=== PATIENT | female | born 1950 | race Caucasian/White ===

== ENCOUNTER 2017-10-19 19:35 | Observation (INO) | payer MEDICARE ==
[~2017-10-19] VITALS: Ht 165.1 cm; Wt 65.8 kg
[2017-10-19] MEDS ORDERED: ASPIRIN 81 MG CHEW (CHILDREN'S ASA) ONE (19:41)
[2017-10-19 19:54] LABS: BASOPHILS % (AUTO) 0 % (0-10); EOSINOPHILS # (AUTO) 0.1 10^3/uL (0.0-0.3); EOSINOPHILS % (AUTO) 1 % (0-10); HEMATOCRIT 43 % (35-52); HEMOGLOBIN 14.6 G/DL (11.5-16.0); LYMPHOCYTES # (AUTO) 1.7 X 10^3 (1.0-4.0); LYMPHOCYTES % (AUTO) 29 % (12-44); MEAN CORPUSCULAR HEMOGLOBIN 32 PG (25-34); MEAN CORPUSCULAR HGB CONC 34 G/DL (32-36); MEAN CORPUSCULAR VOLUME 93 FL (80-99); MEAN PLATELET VOLUME 8.8 FL (7.4-10.4); MONOCYTES # (AUTO) 0.6 X 10^3 (0.0-1.0); MONOCYTES % (AUTO) 11 % (0-12); NEUTROPHILS # (AUTO) 3.3 X 10^3 (1.8-7.8); NEUTROPHILS % (AUTO) 58 % (42-75); PLATELET COUNT 253 10^3/uL (130-400); RED BLOOD COUNT 4.59 10^6/uL (4.35-5.85); RED CELL DISTRIBUTION WIDTH 13.3 % (10.0-14.5); WHITE BLOOD COUNT 5.7 10^3/uL (4.3-11.0)
--- OUTSIDE RECORDS SUMMARY | 2017-10-19 19:54 | XMS REPORT ---
Author Author Josh Michael Organization [employer] Address Unknown Phone Unavailable Care Team Providers Care Bee Keeper Name Role Phone Josh Michael CP Unavailable Allergies, Adverse Reactions, Alerts Substance Reaction Event Type Evista Info Not Available Drug Allergy Captopril Info Not Available Drug Allergy steroid injections Info Not Available Drug Allergy iodine contrast dye Info Not Available Non Drug Allergy Z-Lui Info Not Available Non Drug Allergy Problems Problem Type Condition ICD-9 Code Onset Dates Condition Status Problem Family history of other cardiovascular diseases V17.49 Active Problem Hypertension, Unspecified 401.9 Active Problem Fatigue 780.79 Active Problem SVT, Nonsustained 427.0 Active Assessment Family history of ischemic heart disease V17.3 Active Problem Chest pain 786.50 Active Problem Palpitations 785.1 Active Problem 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 Problem Coronary Artery Disease 414.01 Active Problem Family history of ischemic heart disease V17.3 Active Problem Dyslipidemia 272.4 Active Assessment Family history of other cardiovascular diseases V17.49 Active Assessment Dyslipidemia 272.4 Active Assessment Chest pain 786.50 Active Assessment Palpitations 785.1 Active Assessment SVT, Nonsustained 427.0 Active Assessment Fatigue 780.79 Active Assessment Hypertension, Unspecified 401.9 Active Assessment Coronary Artery Disease 414.01 Active Assessment 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 Problem Allergy, unspecified not elsewhere classified 995.3 Active Medications Medication Code System Code Instructions Start Date End Date Status Dosage Metoprolol Tartrate [facility] [address]-36 25MG Orally Twice a day 1 tablet Vitamin D [facility] [address]-83 1000 UNIT Orally Once a day 1 tablet Cardizem LA [facility] [address]-27 240 MG Orally qd 1 tab ASA 81 mg [facility] [address]-62 Oral qd 1 tab Potassium [facility] [address]-28 75 MG Orally Once a day 1 tablet Procedures Procedure Coding System Code Date Office Visit, Est Pt., Level 4 CPT-4 94051 October 10, 2014 Vital Signs Date/Time: October 10, 2014 BMI 23.79 Index Weight 143 lbs Height 65 inches in Cardiac Monitoring Heart Rate 60 /min Oximetry 98 % Blood Pressure Diastolic 70 mm Hg Blood Pressure Systolic 110 mm Hg Results No Known Results Summary Purpose [employer] Submission
--- OUTSIDE RECORDS SUMMARY | 2017-10-19 19:54 | XMS REPORT ---
Author Author Josh Michael Organization [employer] Address Unknown Phone Unavailable Care Team Providers Care Dealer Analyst Name Role Phone Josh Michael CP Unavailable Allergies, Adverse Reactions, Alerts Substance Reaction Event Type Evista Info Not Available Drug Allergy Captopril Info Not Available Drug Allergy steroid injections Info Not Available Drug Allergy iodine contrast dye Info Not Available Non Drug Allergy Z-Lui Info Not Available Non Drug Allergy Problems Problem Type Condition Code Onset Dates Condition Status Problem Family [...] Instructions Start Date End Date Status Dosage ASA 81 mg [facility] [address]-03 Oral qd 1 tab Metoprolol Tartrate [facility] [address]-25 50 MG Orally bid 1 tab Cardizem LA [facility] [address]-67 120 MG Orally qd 1 tab Vitamin D [facility] [address]-01 1000 UNIT Orally Once a day 1 tablet Potassium [facility] [address]-70 75 MG Orally Once a day 1 tablet Procedures Procedure Coding System Code Date Office Visit, Est Pt., Level 3 CPT-4 18240 Jan 01, 2015 ELECTROCARDIOGRAM, COMPLETE CPT-4 41927 Jan 01, 2015 Vital Signs Date/Time: Jan 01, 2015 BMI 24.26 Index Weight 145.8 lbs Height 65 inches in Cardiac Monitoring Heart Rate 57 /min Oximetry 98%RA % Blood Pressure Diastolic 98 mm Hg Blood Pressure Systolic 148 mm Hg Results No Known Results Summary Purpose [employer] Submission
--- OUTSIDE RECORDS SUMMARY | 2017-10-19 19:54 | XMS REPORT | Referral Summary ---
Author Author [facility] Organization [facility] Address Unknown Phone Unavailable Care Team Providers Care Hooking Machine Operator Name Role Phone WillRia smith Jeremi PCP Encounter VC Date(s): 10/02/17 - 10/02/17 [facility] [address] [place] [address] [phone] Discharge Disposition: 01-Home or Self Care Attending Physician: Josemanuel Meng MD Admitting Physician: Josemanuel Meng MD Vital Signs No data available for this section Problem List Condition Effective Dates Status Health Status Informant Coronary artery Active disease(Confirmed) Benign essential Active hypertension (disorder)(Confirmed ) Gastroesophageal Active reflux disease (disorder)(Confirmed ) History of TIA Active patient (transient ischemic attack)(Confirmed) Other and Active unspecified hyperlipidemia(Confi rmed) kidney Active stones(Confirmed) Myocardial 2003 Active infarction(Confirmed ) microscopic 2009 Active hematuria(Confirmed) 1 Osteoporosis Active (disorder)(Confirmed ) 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 Allergies, Adverse Reactions, Alerts Substance Reaction Severity Status captopril FLUSHING Active azithromycin Active iodine Angiodema Active Forteo Active Medications diltiazem 240 mg/24 hours oral tablet, extended release 240 mg 1 tabs, Oral, Daily, 30-DAY SUPPLY, NO FURTHER REFILLS - PT NEEDS TO MAKE APPT., # 30 tabs, 0 Refill(s), Pharmacy: [facility] #[id number], 1 tabs Oral Daily,Instr:30-DAY SUPPLY, NO FURTHER REFILLS - PT NEEDS TO MAKE APPT. Start Date: 09/24/14 Status: Ordered metoprolol-hydrochlorothiazide 50 mg-25 mg oral tablet 1 tabs, Oral, Daily, 30-DAY SUPPLY, NO FURTHER REFILLS - PT NEEDS TO MAKE APPT. , # 30 tabs, 0 Refill(s), Pharmacy: [facility] #[id number] Start Date: 09/24/14 Status: Ordered valACYclovir 1 g oral tablet See Instructions, TAKE TWO TABLETS BY MOUTH EVERY 12 HOURS FOR 1 DAY, # 20 tabs , 1 Refill(s), eRx: [facility] #[id number], TAKE TWO TABLETS BY MOUTH EVERY 12 HOURS FOR 1 DAY Start Date: 01/17/14 Status: Ordered Results Urinalysis Most recent to 1 oldest [Reference Range]: UA Color Yellow (10/02/17 3:10 PM) UA Appear Sl Cloudy (10/02/17 3:10 PM) UA pH [5.0-8.0] 6.5 (10/02/17 3:10 PM) UA Leuk Est Pos 2+ [Negative] *ABN* (10/02/17 3:10 PM) UA Nitrite Positive [Negative] *ABN* (10/02/17 3:10 PM) UA Protein Pos 2+ [Negative] *ABN* (10/02/17 3:10 PM) UA Glucose Negative [Negative] (10/02/17 3:10 PM) UA Ketones Trace [Negative] *ABN* (10/02/17 3:10 PM) UA Urobilinogen Negative [<1.0] (10/02/17 3:10 PM) UA Bili [Negative] Negative (10/02/17 3:10 PM) UA Blood [Negative] Pos 3+ *ABN* (10/02/17 3:10 PM) UA Spec Grav 1.023 [1.003-1.030] (10/02/17 3:10 PM) Type Cl Catch (10/02/17 3:10 PM) UA WBC [0-4] 20-50 *ABN* (10/02/17 3:10 PM) UA RBC [0-2] 20-50 *ABN* (10/02/17 3:10 PM) Epithelial Cells 0-2 (10/02/17 3:10 PM) UA Bacteria Moderate *ABN* (10/02/17 3:10 PM) Immunizations Given and Recorded Vaccine Date Status Refusal Reason influenza virus vaccine, live 04/05/13 Given influenza virus vaccine, live 03/13/12 Given influenza virus vaccine, live 01/12/11 Given influenza virus vaccine, live 12/15/09 Given Procedures Procedure Date Related Diagnosis Body Site Status cystoscopy 2010 Completed Hernia repair 2010 Completed Colonoscopy 11/28/08 Completed Hysterectomy 2002 Completed Tubal ligation1979 Completed Bilat salpingo oophorectomy Completed laser eye surgery Completed sigmoidoscopy Completed 1Bilateral Social History Social History Type Response Smoking Status Former smoker1 entered on: 07/03/14 1quit 22 years ago Assessment and Plan No data available for this section
--- OUTSIDE RECORDS SUMMARY | 2017-10-19 19:55 | XMS REPORT ---
Author Author Josh Michael Organization [employer] Address Unknown Phone Unavailable Care Team Providers Care Aircraft Seat Upholsterer Name Role Phone Josh Michael CP Unavailable Allergies No Known Allergies Problems Problem Type Condition Code Onset Dates Condition Status Problem Family history of other cardiovascular diseases V17.49 Active Problem Hypertension, Unspecified 401.9 Active Problem Fatigue 780.79 Active Problem Allergy, unspecified not elsewhere classified 995.3 Active Problem SVT, Nonsustained 427.0 Active Problem Chest pain 786.50 Active Problem Palpitations 785.1 Active Problem 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
--- OUTSIDE RECORDS SUMMARY | 2017-10-19 19:55 | XMS REPORT ---
Author Author Josh Michael Organization [employer] Address Unknown Phone Unavailable Care Team Providers Care Manager Of Environmental Services Name Role Phone Josh Michael CP Unavailable [...] V17.3 Active Problem Dyslipidemia 272.4 Active Medications No Known Medications Results No Known Results Summary Purpose [employer] Submission
--- OUTSIDE RECORDS SUMMARY | 2017-10-19 19:56 | XMS REPORT ---
Author Author Josh Michael Organization [employer] Address Unknown Phone Unavailable Care Team Providers Care Film Touch Up Inspector Name Role Phone Josh Michael CP Unavailable Allergies No Known Allergies Problems Problem Type Condition Code Onset Dates Condition Status Problem Family history of other cardiovascular diseases V17.49 Active Problem Hypertension, Unspecified 401.9 Active Problem Fatigue 780.79 Active Assessment Coronary Artery Disease 414.01 Active Problem Allergy, unspecified not elsewhere classified 995.3 Active Problem SVT, Nonsustained 427.0 Active Problem Chest pain 786.50 Active Problem Palpitations 785.1 Active Problem 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
--- OUTSIDE RECORDS SUMMARY | 2017-10-19 19:57 | XMS REPORT | Continuity of Care Document ---
Author Author [facility] Organization [facility] Address Unknown Phone Unavailable Allergies Active Description Code Type Severity Reaction Onset Reported/Identified Relationship to Patient Clinical Status Yes CONTRAVE [id number] Drug Allergy N/A hives Yes FORTEO [id number] Drug Allergy N/A Rash Yes LISINOPRIL 24676 Drug Allergy N /A Facial Redness /Flushed Yes TETANUS TOXOID ADSORBED [id number] Drug Allergy N/A Swollen T flaming red hive Yes ZITHROMAX [id number] Drug Allergy N/A rash Yes CONTRAST DYE CONTRAST DYE Drug Allergy Severe HIVES 10/07/2009 Yes tetanus toxoid, adsorbed tetanus toxoid, adsorbed Drug Allergy Severe SEVERE ELBOW TO SHOULDER EXTREME SWELLING AND PAIN 10/07/2009 Yes Captopril Drug Allergy FLUSHING 10/28/2010 Yes Forteo Drug Allergy HIVES 10/28/2010 Yes IV Dye, Iodine Containing Cont Drug Allergy Angiodema 10/28/2010 Yes Zithromax Z-Lui Drug Allergy RASH 10/28/2010 Yes No Known Food Allergies Food Allergy 05/18/2012 Yes captopril NKMA N/A FLUSHING 07/31/2013 Yes iodine NKMA N/A Angiodema 07/31/2013 Yes captopril NKMA N/A FLUSHING 07/31/2013 Yes iodine NKMA N/A Angiodema 07/31/2013 Yes azithromycin NKMA N/A N/A 09/06/2013 Yes Forteo NKMA N/A N/ A 09/06/2013 Yes azithromycin NKMA N/A N/A 09/06/2013 Yes Forteo NKMA N/A N/ A 09/06/2013 Yes azithromycin azithromycin Drug Allergy Severe RASH 01/14/2015 Yes captopril captopril Drug Allergy Severe RASH, BRIGHT RED 01/14/2015 Yes iodine iodine Drug Allergy Unknown CHEST HEAVINESS, RASH 01/14/2015 Yes STEROID INJECTION STEROID INJECTION Drug Allergy Unknown EXTREME DIAPHORESIS 01/14/2015 Yes teriparatide teriparatide Drug Allergy Unknown RASH 01/14/2015 Medications Medication Packaging Start Date Stop Date Route Dosage Sig ofloxacin otic(ofloxacin 0.3% otic solution) 4 drops 09/06/2013 07/05/2014 Ear-Left 4 drops, Ear-Left, QID valACYclovir(Valtrex 500 mg oral tablet) tabs 09/06/2013 07/05/2014 Oral mg tabs, Oral, q12hr metoprolol(metoprolol tartrate 50 mg oral tablet) 1 tabs 09/06/2013 09/24/2014 Oral 50 mg 1 tabs, Oral, Daily, 50/25 mg diltiazem(Cardizem LA 240 mg/24 hours oral tablet, extended release ) 1 tabs 09/21/2013 09/02/2014 Oral 240 mg 1 tabs, Oral, Daily, 90 tabs valACYclovir(valACYclovir 1 g oral tablet) 01/17/2014 See Instructions, TAKE TWO TABLETS BY MOUTH EVERY 12 HOURS FOR 1 DAY, 20 tabs ciprofloxacin ophthalmic(ciprofloxacin 0.3% ophthalmic solution) 2 drops 07/03/2014 07/10/2014 Eye-Left 2 drops, Eye-Left, q4hr, 5 mL diltiazem(diltiazem 240 mg/24 hours oral tablet, extended release) 09/02/2014 09/24/2014 See Instructions, 1 TABS ORAL DAILY, 90 tabs metoprolol-hydrochlorothiazide(metoprolol-hydrochlorothiazide 50 mg -25 mg oral tablet) tabs 09/24/2014 09/24/2014 Oral tabs, Oral, BID, 0 Refill(s) metoprolol-hydrochlorothiazide(metoprolol-hydrochlorothiazide 50 mg -25 mg oral tablet) 1 tabs 09/24/2014 Oral 1 tabs, Oral, Daily, 30- DAY SUPPLY, NO FURTHER REFILLS - PT NEEDS TO MAKE APPT., 30 tabs, 0 Refill(s) diltiazem(diltiazem 240 mg/24 hours oral tablet, extended release) 1 tabs 09/24/2014 Oral 240 mg 240 mg=1 tabs, Oral, Daily, 30-DAY SUPPLY, NO FURTHER REFILLS - PT NEEDS TO MAKE APPT., 30 tabs, 0 Refill(s) VITAMIN D 10/23/2014 10/23/2014 ORAL 800 [id number] daily TRIAMTERENE-HCTZ 10/23/2014 10/23/2014 ORAL 37.5-25MG37.5-25MG POTASSIUM 10/23/2014 10/23/2014 ORAL [id number] METOPROLOL TARTRATE 10/23/2014 10/23/2014 ORAL [id number] twice daily CARTIA XT 10/23/2014 10/23/2014 ORAL [id number] daily ASPIRIN EC 10/23/2014 10/23/2014 ORAL [id number] daily VITAMIN D 03/23/2016 03/23/2016 ORAL [id number] daily VALACYCLOVIR HCL 03/23/2016 03/23/2016 ORAL 1GM1GM every 12 hrs AMLODIPINE BESYLATE 03/23/2016 03/23/2016 ORAL 5MG5MG daily METRONIDAZOLE 05/25/2016 05/25/2016 ORAL [id number] three times daily Problems Date Dx Coded Attending Type Code Diagnosis Diagnosed By 05/18/2012 Harlan Samuel MD Final 276.8 HYPOPOTASSEMIA 05/18/2012 Harlan Samuel MD Final 401.9 HYPERTENSION NOS 05/18/2012 Harlan Samuel MD Final 785.1 PALPITATIONS 10/03/2017 D18.01 Hemangioma of skin and subcutaneous tissue JUAN SAMANIEGO 10/03/2017 D22.5 Melanocytic nevi of trunk JUAN SAMANIEGO 10/03/2017 D22.71 Melanocytic nevi of right lower limb, including hip JUAN SAMANIEGO 10/03/2017 D22.72 Melanocytic nevi of left lower limb, including hip JUAN SAMANIEGO 10/03/2017 L57.0 Actinic keratosis JUAN SAMANIEGO 10/03/2017 L82.1 Other seborrheic keratosis JUAN SAMANIEGO 10/03/2017 Meng Jace Reason Z01.89 Encounter for other specified special examinations Procedures Code [place] [address] CHEST 2 VIEW ERENDIRA KENNEDY 07/04/2017 14150 Level III new patient office visit JUAN SAMANIEGO 10/03/2017 <section xmlns="urn:hl7-org:v3" xmlns:xsi="http://www.Yeelion3.org/2001/ XMLSchema-instance"> <templateId root="[id number]" /> < templateId root="[id number]" /> <code codeSystemName= "LOMAG" codeSystem="[id number]" code="04849-3" displayName="Results" /> <title>Results</title> <text> <table> <thead> <tr> <th>Test</th> <th>Result</th> <th>Range</th> </tr> </thead> <tbody> <tr> <th colspan="10">LIPID PANEL - 06:15</th> </tr> <tr> <td>CHOLESTEROL/HDL RATIO</td > <td>3.3 </td> <td> < 5.0</td> </tr> <tr> <td>LDL CHOLESTEROL</td> <td>140 mg/dL</td> <td>< 100</td> </tr> <tr> <td>VLDL CHOLESTEROL</td> < td>9 mg/dL</td> <td>< 30</td> </tr> <tr> <td> TRIGLYCERIDES</td> <td>45 mg/dL</td> <td>< 150</td> </tr> <tr> <td>CHOLESTEROL</td> <td>213 mg/dL</td> <td>< 200</td> </tr> <tr> <td>HDL CHOLESTEROL</ td> <td>64 mg/dL</td> <td>> 39</td> </tr> <tr > <td>Microbiology</td> <td> </td> <td /> </tr > <tr> <th colspan="10">CBC - 01/14/15 06:45</th> </tr> <tr> <td>MEAN CELL HGB</td> <td>31.2 pg</td> < td>27.0-33.0</td> </tr> <tr> <td>MEAN CELL HGB CONCENTRATION</td> <td>34.1 g/dL</td> <td>32.0-37.0</td> </tr> <tr> <td>MEAN CELL VOLUME</td> <td>91.5 fl</td > <td>80.0-100.0</td> </tr> <tr> <td>RED BLOOD CELL</td> <td>5.04 m/cumm</td> <td>4.00-6.00</td> </tr > <tr> <td>RED CELL DISTRIBUTION WIDTH</td> <td>12.4 &# 37;</td> <td>11.0-15.6</td> </tr> <tr> <td> WHITE BLOOD CELL</td> <td>9.3 k/cumm</td> <td>5.0-10.0</td> </tr> <tr> <td>HEMOGLOBIN</td> <td>15.7 gm/dL</td > <td>12.0-16.0</td> </tr> <tr> <td>HEMATOCRIT</ td> <td>46.1 %</td> <td>37.0-47.0</td> </tr> <tr> <td>PLATELET COUNT</td> <td>318 k/cumm</td> < td>150-400</td> </tr> <tr> <td>Microbiology</td> <td> </td> <td /> </tr> <tr> <th colspan="10"> METABOLIC PANEL, COMPREHN - 01/14/15 06:45</th> </tr> <tr> <td>POTASSIUM</td> <td>3.7 mmol/L</td> <td>3.5-5.3</td> </tr> <tr> <td>EST GFR (MDRD)</td> <td>> 60 mL/ min</td> <td>> 59</td> </tr> <tr> <td>ANION GAP</td> <td>10 mmol/L</td> <td>5-15</td> </tr> <tr> <td>EST CrCl (CG)</td> <td>56 mL/min</td> <td>& gt; 59</td> </tr> <tr> <td>GLUCOSE</td> <td>142 mg/dL</td> <td>70-99</td> </tr> <tr> <td>CALCIUM </td> <td>9.5 mg/dL</td> <td>8.5-10.1</td> </tr> <tr> <td>BLOOD UREA NITROGEN</td> <td>18 mg/dL</td> <td>7-20</td> </tr> <tr> <td>CREATININE</td> < td>0.9 mg/dL</td> <td>0.6-1.0</td> </tr> <tr> < td>SODIUM</td> <td>139 mmol/L</td> <td>135-148</td> </ tr> <tr> <td>CHLORIDE</td> <td>101 mmol/L</td> <td>98-110</td> </tr> <tr> <td>AST/SGOT</td> < td>11 Units/L</td> <td>10-37</td> </tr> <tr> <td >ALT/SGPT</td> <td>19 Units/L</td> <td>< 66</td> </ tr> <tr> <td>CARBON DIOXIDE</td> <td>28 mmol/L</td> <td>21-32</td> </tr> <tr> <td>TOTAL PROTEIN</td> <td>8.0 gm/dL</td> <td>6.4-8.2</td> </tr> <tr> <td>ALBUMIN</td> <td>4.2 gm/dL</td> <td>3.4-5.0</td> </tr> <tr> <td>BILI TOTAL</td> <td>0.3 mg/dL</ td> <td>0.0-1.0</td> </tr> <tr> <td>ALKALINE PHOSPHATASE TOTAL</td> <td>121 IU/L</td> <td>45-117</td> </tr> <tr> <td>Microbiology</td> <td> </td> <td /> </tr> <tr> < colspan="10">CBC With Differential/Platelet - 03/23/16 11:20</th> </tr> <tr> < td>WBC</td> <td>5.1 x10E3/uL</td> <td>3.4-10.8</td> </ tr> <tr> <td>RBC</td> <td>4.44 x10E6/uL</td> < td>3.77-5.28</td> </tr> <tr> <td>Hemoglobin</td> <td>13.7 g/dL</td> <td>11.1-15.9</td> </tr> <tr> <td>Hematocrit</td> <td>39.8 %</td> <td>34.0-46.6</td > </tr> <tr> <td>MCV</td> <td>90 fL</td> <td>79-97</td> </tr> <tr> <td>MCH</td> <td> 30.9 pg</td> <td>26.6-33.0</td> </tr> <tr> <td> MCHC</td> <td>34.4 g/dL</td> <td>31.5-35.7</td> </tr> <tr> <td>RDW</td> <td>12.3 %</td> <td>12.3 -15.4</td> </tr> <tr> <td>Platelets</td> <td> 251 x10E3/uL</td> <td>150-379</td> </tr> <tr> < td>Neutrophils</td> <td>59 %</td> <td /> </tr> <tr> <td>Lymphs</td> <td>28 %</td> <td /> </tr> <tr> <td>Monocytes</td> <td>12 %</td> <td /> </tr> <tr> <td>Eos</td> <td>1 &# 37;</td> <td /> </tr> <tr> <td>Basos</td> <td>0 %</td> <td /> </tr> <tr> <td> Neutrophils (Absolute)</td> <td>3.0 x10E3/uL</td> <td>1.4-7.0< /td> </tr> <tr> <td>Lymphs (Absolute)</td> <td> 1.4 x10E3/uL</td> <td>0.7-3.1</td> </tr> <tr> < td>Monocytes(Absolute)</td> <td>0.6 x10E3/uL</td> <td>0.1-0.9< /td> </tr> <tr> <td>Eos (Absolute)</td> <td>0.1 x10E3/uL</td> <td>0.0-0.4</td> </tr> <tr> <td> Baso (Absolute)</td> <td>0.0 x10E3/uL</td> <td>0.0-0.2</td> </tr> <tr> <th colspan="10">Comp. Metabolic Panel (14) - 03/23/16 11:20</th> </tr> <tr> <td>Glucose, Serum</td> <td>93 mg/dL</td> <td>65-99</td> </tr> <tr> <td>BUN</td> <td>9 mg/dL</td> <td>8-27</td> </tr> <tr> <td>Creatinine, Serum</td> <td>0.65 mg/dL</td> <td>0.57-1.00</td> </tr> <tr> <td>eGFR If NonAfricn Am</td> <td>92 mL/min/1.73</td> <td> >59</td> </tr> <tr> <td>eGFR If Africn Am</td> <td>106 mL/min/1.73</td> <td> >59</td> </tr> <tr> <td>BUN/Creatinine Ratio</td> <td>14 </td> <td>11-26</td> </tr> <tr> <td>Sodium, Serum</td> <td>144 mmol/L</ td> <td>134-144</td> </tr> <tr> <td>Potassium, Serum</td> <td>4.4 mmol/L</td> <td>3.5-5.2</td> </tr> <tr> <td>Chloride, Serum</td> <td>103 mmol/L</td> <td>96-106</td> </tr> <tr> <td>Carbon Dioxide, Total </td> <td>28 mmol/L</td> <td>18-29</td> </tr> < tr> <td>Calcium, Serum</td> <td>9.1 mg/dL</td> <td> 8.7-10.3</td> </tr> <tr> <td>Protein, Total, Serum</td> <td>6.7 g/dL</td> <td>6.0-8.5</td> </tr> <tr> <td>Albumin, Serum</td> <td>4.4 g/dL</td> <td>3.6-4.8< /td> </tr> <tr> <td>Globulin, Total</td> <td> 2.3 g/dL</td> <td>1.5-4.5</td> </tr> <tr> <td>A/ G Ratio</td> <td>1.9 </td> <td>1.1-2.5</td> </tr> <tr> <td>Bilirubin, Total</td> <td>0.4 mg/dL</td> <td>0.0-1.2</td> </tr> <tr> <td>Alkaline Phosphatase, S</ td> <td>87 IU/L</td> <td>39-117</td> </tr> <tr> <td>AST (SGOT)</td> <td>14 IU/L</td> <td>0-40</td> </tr> <tr> <td>ALT (SGPT)</td> <td>12 IU/L</td> <td>0-32</td> </tr> <tr> <th colspan="10"> Lipid Panel - 03/23/16 11:20</th> </tr> <tr> <td> Cholesterol, Total</td> <td>202 mg/dL</td> <td>100-199</td> </tr> <tr> <td>Triglycerides</td> <td>82 mg/dL</ td> <td>0-149</td> </tr> <tr> <td>HDL Cholesterol</td> <td>64 mg/dL</td> <td>>39</td> </tr > <tr> <td>VLDL Cholesterol Marcel</td> <td>16 mg/dL</td> <td>5-40</td> </tr> <tr> <td>LDL Cholesterol Calc</td> <td>122 mg/dL</td> <td>0-99</td> </tr> <tr> <th colspan="10">Ova + Parasite Exam - 06/02/16 14:00</th> </tr> <tr> <td>Ova + Parasite Exam</td> <td>Note </ td> <td /> </tr> <tr> <th colspan="10">White Blood Cells (WBC), Stool - 06/02/16 14:00</th> </tr> <tr> <td>White Blood Cells (WBC), Stool</td> <td>Note </td> <td / > </tr> <tr> <th colspan="10">Stool Culture - 06/02/16 14 :00</th> </tr> <tr> <td>Stool Culture</td> <td> Note </td> <td /> </tr> <tr> <th colspan="10"> CBC With Differential/Platelet - 07/04/17 13:51</th> </tr> <tr> <td>WBC</td> <td>5.5 x10E3/uL</td> <td>3.4-10.8</td> </tr> <tr> <td>RBC</td> <td>4.63 x10E6/uL</td> <td>3.77-5.28</td> </tr> <tr> <td>Hemoglobin</td > <td>14.0 g/dL</td> <td>11.1-15.9</td> </tr> < tr> <td>Hematocrit</td> <td>43.0 %</td> <td>34.0- 46.6</td> </tr> <tr> <td>MCV</td> <td>93 fL</td > <td>79-97</td> </tr> <tr> <td>MCH</td> <td>30.2 pg</td> <td>26.6-33.0</td> </tr> <tr> <td>MCHC</td> <td>32.6 g/dL</td> <td>31.5-35.7</td> </tr> <tr> <td>RDW</td> <td>13.4 %</td> < td>12.3-15.4</td> </tr> <tr> <td>Platelets</td> <td>277 x10E3/uL</td> <td>150-379</td> </tr> <tr> <td>Neutrophils</td> <td>61 %</td> <td>Not Estab.</td> </tr> <tr> <td>Lymphs</td> <td>26 %</td> <td>Not Estab.</td> </tr> <tr> <td>Monocytes</td > <td>11 %</td> <td>Not Estab.</td> </tr> < tr> <td>Eos</td> <td>2 %</td> <td>Not Estab.</td > </tr> <tr> <td>Basos</td> <td>0 %</td> <td>Not Estab.</td> </tr> <tr> <td>Neutrophils ( Absolute)</td> <td>3.3 x10E3/uL</td> <td>1.4-7.0</td> < /tr> <tr> <td>Lymphs (Absolute)</td> <td>1.5 x10E3/uL</ td> <td>0.7-3.1</td> </tr> <tr> <td>Monocytes( Absolute)</td> <td>0.6 x10E3/uL</td> <td>0.1-0.9</td> < /tr> <tr> <td>Eos (Absolute)</td> <td>0.1 x10E3/uL</td > <td>0.0-0.4</td> </tr> <tr> <td>Baso (Absolute )</td> <td>0.0 x10E3/uL</td> <td>0.0-0.2</td> </tr> <tr> <td>Immature Granulocytes</td> <td>0 %</td> <td>Not Estab.</td> </tr> <tr> <td>Immature Grans ( Abs)</td> <td>0.0 x10E3/uL</td> <td>0.0-0.1</td> </tr> <tr> < colspan="10">Comp. Metabolic Panel (14) - 07/04/17 13: 51</th> </tr> <tr> <td>Glucose, Serum</td> <td> 88 mg/dL</td> <td>65-99</td> </tr> <tr> <td>BUN< /td> <td>15 mg/dL</td> <td>8-27</td> </tr> <tr> <td>Creatinine, Serum</td> <td>0.75 mg/dL</td> <td> 0.57-1.00</td> </tr> <tr> <td>eGFR If NonAfricn Am</td> <td>82 mL/min/1.73</td> <td> >59</td> </tr> <tr> <td>eGFR If Africn Am</td> <td>95 mL/min/1.73</td> <td> >59</td> </tr> <tr> <td>BUN/Creatinine Ratio</td> <td>20 </td> <td>12-28</td> </tr> <tr > <td>Sodium, Serum</td> <td>144 mmol/L</td> <td>134- 144</td> </tr> <tr> <td>Potassium, Serum</td> < td>4.1 mmol/L</td> <td>3.5-5.2</td> </tr> <tr> < td>Chloride, Serum</td> <td>103 mmol/L</td> <td>96-106</td> </tr> <tr> <td>Carbon Dioxide, Total</td> <td>28 mmol/L</td> <td>18-29</td> </tr> <tr> <td> Calcium, Serum</td> <td>9.6 mg/dL</td> <td>8.7-10.3</td> </tr> <tr> <td>Protein, Total, Serum</td> <td>7.0 g/ dL</td> <td>6.0-8.5</td> </tr> <tr> <td>Albumin , Serum</td> <td>4.4 g/dL</td> <td>3.6-4.8</td> </tr> <tr> <td>Globulin, Total</td> <td>2.6 g/dL</td> <td>1.5-4.5</td> </tr> <tr> <td>A/G Ratio</td> <td>1.7 </td> <td>1.2-2.2</td> </tr> <tr> <td >Bilirubin, Total</td> <td>0.3 mg/dL</td> <td>0.0-1.2</td> </tr> <tr> <td>Alkaline Phosphatase, S</td> <td> 80 IU/L</td> <td>39-117</td> </tr> <tr> <td>AST (SGOT)</td> <td>15 IU/L</td> <td>0-40</td> </tr> <tr> <td>ALT (SGPT)</td> <td>15 IU/L</td> <td>0-32< /td> </tr> <tr> < colspan="10">[facility] 14[facility]</th> </tr> <tr> <td> Sedimentation Rate-[place]</td> <td>6 mm/hr</td> <td>0-40</ td> </tr> <tr> <th colspan="10">C-Reactive Protein, Quant - 07/06/17 14:20</th> </tr> <tr> <td>C-Reactive Protein, Quant</td> <td>5.7 mg/L</td> <td>0.0-4.9</td> </tr> <tr> <th colspan="10">Urinalysis with reflex microscopic - 10/02/17 15:10</th> </tr> <tr> <td>Appearance</td> <td>Sl Cloudy NA</td> <td /> </tr> <tr> < td>Bilirubin</td> <td>Negative NA</td> <td>Negative</td> </tr> <tr> <td>Blood</td> <td>Pos 3+ NA</td> <td>Negative</td> </tr> <tr> <td>Color</td> < td>Yellow NA</td> <td /> </tr> <tr> <td>Glucose , Urine</td> <td>Negative </td> <td>Negative</td> </tr > <tr> <td>Ketones</td> <td>Trace </td> <td> Negative</td> </tr> <tr> <td>Leukocyte Esterase</td> <td>Pos 2+ NA</td> <td>Negative</td> </tr> <tr> <td>Nitrites</td> <td>Positive NA</td> <td>Negative</td > </tr> <tr> <td>pH</td> <td>6.5 NA</td> <td>5.0-8.0</td> </tr> <tr> <td>Protein</td> <td>Pos 2+ </td> <td>Negative</td> </tr> <tr> < td>Specific [place]</td> <td>1.023 NA</td> <td>1.003-1.030</td > </tr> <tr> <td>UA Collection type</td> <td>Cl Catch NA</td> <td /> </tr> <tr> <td>Urobilinogen </td> <td>Negative mg/dL</td> <td><1.0</td> </tr> <tr> < colspan="10">Urine Microscopic - 10/02/17 15:10</th> </tr> <tr> <td>Bacteria</td> <td>Moderate NA</td> <td /> </tr> <tr> <td>Epithelial Cells</td> <td>0 /HPF</td> <td /> </tr> <tr> <td>RBC , Urine</td> <td>20 /HPF</td> <td>0-2</td> </tr> <tr> <td>WBC, Urine</td> <td>20 /HPF</td> <td>0-4</ td> </tr> </tbody> </table> </text> <entry> <organizer moodCode="EVN" classCode="BATTERY"> <templateId root= "[id number]" /> <id nullFlavor="NA" /> <code codeSystem="local" code="HDLPRO" displayName="LIPID PANEL" /> <statusCode code="completed" /> <component> <observation moodCode="EVN" classCode="OBS"> <templateId root="[id number]" /> <id nullFlavor="NA" /> <code codeSystem="local" code="CHOL/HDL " displayName="CHOLESTEROL/HDL RATIO" /> <statusCode code="completed" / > <effectiveTime value="[id number]" /> <value unit="" xsi: type="PQ" value="3.3" /> <referenceRange> <observationRange > <text> < 5.0</text> </observationRange> </ referenceRange> </observation> </component> <component> <observation moodCode="EVN" classCode="OBS"> <templateId root= "[id number]" /> <id nullFlavor="NA" /> < code codeSystem="local" code="LDLX" displayName="LDL CHOLESTEROL" /> < statusCode code="completed" /> <effectiveTime value="221869480598" /> <value unit="mg/dL" xsi:type="PQ" value="140" /> < interpretationCode codeSystem="local" code="*" /> <referenceRange> <observationRange> <text>< 100</text> </ observationRange> </referenceRange> </observation> </ component> <component> <observation moodCode="EVN" classCode="OBS"> <templateId root="[id number]" /> <id nullFlavor="NA" /> <code codeSystem="local" code="VLDL" displayName= "VLDL CHOLESTEROL" /> <statusCode code="completed" /> < effectiveTime value="[id number]" /> <value unit="mg/dL" xsi:type="PQ " value="9" /> <referenceRange> <observationRange> <text>< 30</text> </observationRange> </ referenceRange> </observation> </component> <component> <observation moodCode="EVN" classCode="OBS"> <templateId root= "[id number]" /> <id nullFlavor="NA" /> < code codeSystem="local" code="TRIG" displayName="TRIGLYCERIDES" /> < statusCode code="completed" /> <effectiveTime value="580452658517" /> <value unit="mg/dL" xsi:type="PQ" value="45" /> < referenceRange> <observationRange> <text>< 150</text > </observationRange> </referenceRange> </observation > </component> <component> <observation moodCode="EVN" classCode="OBS"> <templateId root="216.840.1.095007.10.20.22.4.2" /> <id nullFlavor="NA" /> <code codeSystem="local" code="CHOL" displayName="CHOLESTEROL" /> <statusCode code="completed" /> < effectiveTime value="656516898817" /> <value unit="mg/dL" xsi:type="PQ " value="213" /> <interpretationCode codeSystem="local" code="*" /> <referenceRange> <observationRange> <text>< 200</text> </observationRange> </referenceRange> </ observation> </component> <component> <observation moodCode= "EVN" classCode="OBS"> <templateId root="[id number].2 " /> <id nullFlavor="NA" /> <code codeSystem="local" code="HDL " displayName="HDL CHOLESTEROL" /> <statusCode code="completed" /> <effectiveTime value="720877673348" /> <value unit="mg/dL" xsi: type="PQ" value="64" /> <referenceRange> <observationRange> <text>> 39</text> </observationRange> </ referenceRange> </observation> </component> <component> <observation moodCode="EVN" classCode="OBS"> <templateId root= "05.20.840.1.151932.01.21.22.4.2" /> <id nullFlavor="NA" /> < code codeSystem="local" code="MB" displayName="Microbiology" /> < statusCode code="completed" /> <effectiveTime value="431136510793" /> <value unit="" xsi:type="PQ" value="" /> <referenceRange> <observationRange> <text /> </observationRange> </referenceRange> </observation> </component> </ organizer> </entry> <entry> <organizer moodCode="EVN" classCode="BATTERY"> <templateId root="840.1.562089.01.21.22.4.1" /> <id nullFlavor= "NA" /> <code codeSystem="local" code="CBC" displayName="CBC" /> < statusCode code="completed" /> <component> <observation moodCode= "EVN" classCode="OBS"> <templateId root="840.1.699578.01.21.22.4.2 " /> <id nullFlavor="NA" /> <code codeSystem="local" code="MCH " displayName="MEAN CELL HGB" /> <statusCode code="completed" /> <effectiveTime value="021904494612" /> <value unit="pg" xsi:type= "PQ" value="31.2" /> <referenceRange> <observationRange> <text>27.0-33.0</text> </observationRange> </ referenceRange> </observation> </component> <component> <observation moodCode="EVN" classCode="OBS"> <templateId root= "840.1.515299.22.4.2" /> <id nullFlavor="NA" /> < code codeSystem="local" code="MCHC" displayName="MEAN CELL HGB CONCENTRATION" / > <statusCode code="completed" /> <effectiveTime value= "" /> <value unit="g/dL" xsi:type="PQ" value="34.1" /> <referenceRange> <observationRange> <text>32.0- 37.0</text> </observationRange> </referenceRange> </ observation> </component> <component> <observation moodCode= "EVN" classCode="OBS"> <templateId root="216.840.1.622554.10..22.4.2 " /> <id nullFlavor="NA" /> <code codeSystem="local" code="MCV " displayName="MEAN CELL VOLUME" /> <statusCode code="completed" /> <effectiveTime value="" /> <value unit="fl" xsi:type ="PQ" value="91.5" /> <referenceRange> <observationRange> <text>80.0-100.0</text> </observationRange> </ referenceRange> </observation> </component> <component> <observation moodCode="EVN" classCode="OBS"> <templateId root= "05.20.840.1.299329.10..22.4.2" /> <id nullFlavor="NA" /> < code codeSystem="local" code="RBC" displayName="RED BLOOD CELL" /> < statusCode code="completed" /> <effectiveTime value="259507750772" /> <value unit="m/cumm" xsi:type="PQ" value="5.04" /> < referenceRange> <observationRange> <text>4.00-6.00</text > </observationRange> </referenceRange> </observation > </component> <component> <observation moodCode="EVN" classCode="OBS"> <templateId root="16.840.1.147691.01.21.22.4.2" /> <id nullFlavor="NA" /> <code codeSystem="local" code="RDW" displayName="RED CELL DISTRIBUTION WIDTH" /> <statusCode code= "completed" /> <effectiveTime value="" /> <value unit="%" xsi:type="PQ" value="12.4" /> <referenceRange> <observationRange> <text>11.0-15.6</text> </ observationRange> </referenceRange> </observation> </ component> <component> <observation moodCode="EVN" classCode="OBS"> <templateId root="2.16.840.1.065408.01.21.22.4.2" /> <id nullFlavor="NA" /> <code codeSystem="local" code="WBC" displayName= "WHITE BLOOD CELL" /> <statusCode code="completed" /> < effectiveTime value="" /> <value unit="k/cumm" xsi:type="PQ " value="9.3" /> <referenceRange> <observationRange> <text>5.0-10.0</text> </observationRange> </ referenceRange> </observation> </component> <component> <observation moodCode="EVN" classCode="OBS"> <templateId root= "2.16.840.1.306050.01.21.22.4.2" /> <id nullFlavor="NA" /> < code codeSystem="local" code="HGBT" displayName="HEMOGLOBIN" /> < statusCode code="completed" /> <effectiveTime value="" /> <value unit="gm/dL" xsi:type="PQ" value="15.7" /> < referenceRange> <observationRange> <text>12.0-16.0</text > </observationRange> </referenceRange> </observation > </component> <component> <observation moodCode="EVN" classCode="OBS"> <templateId root="16.840.1.440962.10..4.2" /> <id nullFlavor="NA" /> <code codeSystem="local" code="HCTT" displayName="HEMATOCRIT" /> <statusCode code="completed" /> < effectiveTime value="[id number]" /> <value unit="%" xsi:type="PQ " value="46.1" /> <referenceRange> <observationRange> <text>37.0-47.0</text> </observationRange> </ referenceRange> </observation> </component> <component> <observation moodCode="EVN" classCode="OBS"> <templateId root= "05.20.840.1.401082.01.21.22.4.2" /> <id nullFlavor="NA" /> < code codeSystem="local" code="PLT" displayName="PLATELET COUNT" /> < statusCode code="completed" /> <effectiveTime value="[id number]" /> <value unit="k/cumm" xsi:type="PQ" value="318" /> < referenceRange> <observationRange> <text>150-400</text> </observationRange> </referenceRange> </observation > </component> <component> <observation moodCode="EVN" classCode="OBS"> <templateId root="05.20.840.1.289474.10..22.4.2" /> <id nullFlavor="NA" /> <code codeSystem="local" code="MB" displayName="Microbiology" /> <statusCode code="completed" /> <effectiveTime value="402911102442" /> <value unit="" xsi:type="PQ" value="" /> <referenceRange> <observationRange> <text /> </observationRange> </referenceRange> </ observation> </component> </organizer> </entry> <entry> <organizer moodCode="EVN" classCode="BATTERY"> <templateId root= "16.840.1.602038.10..4.1" /> <id nullFlavor="NA" /> <code codeSystem="local" code="METABC" displayName="METABOLIC PANEL, COMPREHN" /> <statusCode code="completed" /> <component> <observation moodCode= "EVN" classCode="OBS"> <templateId root="05.20.840.1.786676.01.21.22.4.2 " /> <id nullFlavor="NA" /> <code codeSystem="local" code="K" displayName="POTASSIUM" /> <statusCode code="completed" /> < effectiveTime value="" /> <value xsi:type="ST" value="<pre> <b>METABOLIC PANEL, COMPREHN</b> 1393.47695000514438.9> 97015.04.29.50.24750220< /pre>" /> <referenceRange> <observationRange> < text>3.5-5.3</text> </observationRange> </referenceRange> </observation> </component> <component> <observation moodCode="EVN" classCode="OBS"> <templateId root= "05.20.840.1.417162.01.21.22.4.2" /> <id nullFlavor="NA" /> < code codeSystem="local" code="eGFR" displayName="EST GFR (MDRD)" /> < statusCode code="completed" /> <effectiveTime value="" /> <value xsi:type="ST" value="<pre><b>METABOLIC PANEL, COMPREHN</b> 1393.51304283495139.9> 36505.04.29.50.88037057</pre>" /> < referenceRange> <observationRange> <text>> 59</text> </observationRange> </referenceRange> </observation > </component> <component> <observation moodCode="EVN" classCode="OBS"> <templateId root="2.16.840.1.497799.10.20.22.4.2" /> <id nullFlavor="NA" /> <code codeSystem="local" code="GAP" displayName="ANION GAP" /> <statusCode code="completed" /> < effectiveTime value="" /> <value xsi:type="ST" value="<pre> <b>METABOLIC PANEL, COMPREHN</b> 1393.75444594997363.9> 62730..29.50.78508063< /pre>" /> <referenceRange> <observationRange> < text>5-15</text> </observationRange> </referenceRange> </observation> </component> <component> <observation moodCode="EVN" classCode="OBS"> <templateId root= "2.16.840.1.278504.10.20.22.4.2" /> <id nullFlavor="NA" /> < code codeSystem="local" code="eCrCl" displayName="EST CrCl (CG)" /> < statusCode code="completed" /> <effectiveTime value="" /> <value xsi:type="ST" value="<pre><b>METABOLIC PANEL, COMPREHN</b> 1393.45694621242008.9> 59725.07.31.50.76020355</pre>" /> < interpretationCode codeSystem="local" code="*" /> <referenceRange> <observationRange> <text>> 59</text> </ observationRange> </referenceRange> </observation> </ component> <component> <observation moodCode="EVN" classCode="OBS"> <templateId root="05.20.840.1.426680.10..22.4.2" /> <id nullFlavor="NA" /> <code codeSystem="local" code="GLU" displayName= "GLUCOSE" /> <statusCode code="completed" /> <effectiveTime value="" /> <value xsi:type="ST" value="<pre><b>METABOLIC PANEL, COMPREHN</b> 1393.64049889965898.9> 3338911.05.2850.91276867</pre>" /> <interpretationCode codeSystem="local" code="*" /> < referenceRange> <observationRange> <text>70-99</text> </observationRange> </referenceRange> </observation> </component> <component> <observation moodCode="EVN" classCode= "OBS"> <templateId root="05.20.840.1.425827.10..22.4.2" /> < id nullFlavor="NA" /> <code codeSystem="local" code="CA" displayName= "CALCIUM" /> <statusCode code="completed" /> <effectiveTime value="" /> <value xsi:type="ST" value="<pre><b>METABOLIC PANEL, COMPREHN</b> 1393.02399045157660.9> 2342311.05.2850.52922944</pre>" /> <referenceRange> <observationRange> <text>8.5- 10.1</text> </observationRange> </referenceRange> </ observation> </component> <component> <observation moodCode= "EVN" classCode="OBS"> <templateId root="2.840.1.410029.10.20.22.4.2 " /> <id nullFlavor="NA" /> <code codeSystem="local" code="BUN " displayName="BLOOD UREA NITROGEN" /> <statusCode code="completed" /> <effectiveTime value="" /> <value xsi:type="ST" value="<pre><b>METABOLIC PANEL, COMPREHN</b> 1393.39123892136562.9> 0456511.05.28.50.12095757</pre>" /> <referenceRange> < observationRange> <text>7-20</text> </observationRange> </referenceRange> </observation> </component> < component> <observation moodCode="EVN" classCode="OBS"> < templateId root="2.16.840.1.539506.10..22.4.2" /> <id nullFlavor="NA " /> <code codeSystem="local" code="CREAT" displayName="CREATININE" /> <statusCode code="completed" /> <effectiveTime value= "" /> <value xsi:type="ST" value="<pre><b>METABOLIC PANEL, COMPREHN</b> 1393.12386798069679.9> 59121.04.29.50.45533834</pre>" /> < referenceRange> <observationRange> <text>0.6-1.0</text> </observationRange> </referenceRange> </observation > </component> <component> <observation moodCode="EVN" classCode="OBS"> <templateId root="216.840.1.559069.10..22.4.2" /> <id nullFlavor="NA" /> <code codeSystem="local" code="NA" displayName="SODIUM" /> <statusCode code="completed" /> < effectiveTime value="" /> <value xsi:type="ST" value="<pre> <b>METABOLIC PANEL, COMPREHN</b> 1393.55746373703650.9> 37784.04.29.50.25185918< /pre>" /> <referenceRange> <observationRange> < text>135-148</text> </observationRange> </referenceRange> </observation> </component> <component> <observation moodCode="EVN" classCode="OBS"> <templateId root= "2.16.840.1.454705.10..22.4.2" /> <id nullFlavor="NA" /> < code codeSystem="local" code="CL" displayName="CHLORIDE" /> < statusCode code="completed" /> <effectiveTime value="" /> <value xsi:type="ST" value="<pre><b>METABOLIC PANEL, COMPREHN</b> 1393.22636500119206.9> 72438.04.29.50.71939274</pre>" /> < referenceRange> <observationRange> <text>98-110</text> </observationRange> </referenceRange> </observation> </component> <component> <observation moodCode="EVN" classCode ="OBS"> <templateId root="2.16.840.1.587290.10..22.4.2" /> < id nullFlavor="NA" /> <code codeSystem="local" code="AST" displayName= "AST/SGOT" /> <statusCode code="completed" /> <effectiveTime value="" /> <value xsi:type="ST" value="<pre><b>METABOLIC PANEL, COMPREHN</b> 1393.43808782732339.9> 78325.04.29.50.36226515</pre>" /> <referenceRange> <observationRange> <text>10-37</ text> </observationRange> </referenceRange> </ observation> </component> <component> <observation moodCode= "EVN" classCode="OBS"> <templateId root="16.840.1.935756.10..22.4.2 " /> <id nullFlavor="NA" /> <code codeSystem="local" code="ALT " displayName="ALT/SGPT" /> <statusCode code="completed" /> < effectiveTime value="" /> <value xsi:type="ST" value="<pre> <b>METABOLIC PANEL, COMPREHN</b> 1393.94152198671700.9> 8703211.05.28.50.04116248< /pre>" /> <referenceRange> <observationRange> < text>< 66</text> </observationRange> </referenceRange> </observation> </component> <component> <observation moodCode="EVN" classCode="OBS"> <templateId root= "05.20.840.1.216464.10..22.4.2" /> <id nullFlavor="NA" /> < code codeSystem="local" code="CO2" displayName="CARBON DIOXIDE" /> < statusCode code="completed" /> <effectiveTime value="" /> <value xsi:type="ST" value="<pre><b>METABOLIC PANEL, COMPREHN</b> 1393.11158922607367.9> 9039411.05.28.50.96140655</pre>" /> < referenceRange> <observationRange> <text>21-32</text> </observationRange> </referenceRange> </observation> </component> <component> <observation moodCode="EVN" classCode= "OBS"> <templateId root="05.20.840.1.691452.10..22.4.2" /> < id nullFlavor="NA" /> <code codeSystem="local" code="TP" displayName= "TOTAL PROTEIN" /> <statusCode code="completed" /> < effectiveTime value="" /> <value xsi:type="ST" value="<pre> <b>METABOLIC PANEL, COMPREHN</b> 1393.36953131653447.9> 1568811.05.2850.54242974< /pre>" /> <referenceRange> <observationRange> < text>6.4-8.2</text> </observationRange> </referenceRange> </observation> </component> <component> <observation moodCode="EVN" classCode="OBS"> <templateId root= "2.16.840.1.678143.10..22.4.2" /> <id nullFlavor="NA" /> < code codeSystem="local" code="ALB" displayName="ALBUMIN" /> < statusCode code="completed" /> <effectiveTime value="" /> <value xsi:type="ST" value="<pre><b>METABOLIC PANEL, COMPREHN</b> 1393.24258270229968.9> 0796411.05.28.50.70728146</pre>" /> < referenceRange> <observationRange> <text>3.4-5.0</text> </observationRange> </referenceRange> </observation > </component> <component> <observation moodCode="EVN" classCode="OBS"> <templateId root="216.840.1.686247.10..22.4.2" /> <id nullFlavor="NA" /> <code codeSystem="local" code="BILTOT" displayName="BILI TOTAL" /> <statusCode code="completed" /> < effectiveTime value="" /> <value xsi:type="ST" value="<pre> <b>METABOLIC PANEL, COMPREHN</b> 1393.22304711610792.9> 4245311.05.28.50.86534895< /pre>" /> <referenceRange> <observationRange> < text>0.0-1.0</text> </observationRange> </referenceRange> </observation> </component> <component> <observation moodCode="EVN" classCode="OBS"> <templateId root= "2.16.840.1.533138.10.20.22.4.2" /> <id nullFlavor="NA" /> < code codeSystem="local" code="ALKP" displayName="ALKALINE PHOSPHATASE TOTAL" /> <statusCode code="completed" /> <effectiveTime value= "[id number]" /> <value xsi:type="ST" value="<pre><b>METABOLIC PANEL, COMPREHN</b> 1393.11674468967152.9> 05578.07.31.50.82868337</pre>" /> < interpretationCode codeSystem="local" code="*" /> <referenceRange> <observationRange> <text>45-117</text> </ observationRange> </referenceRange> </observation> </ component> <component> <observation moodCode="EVN" classCode="OBS"> <templateId root="2.16.840.1.453835.10.20.22.4.2" /> <id nullFlavor="NA" /> <code codeSystem="local" code="MB" displayName= "Microbiology" /> <statusCode code="completed" /> < effectiveTime value="[id number]" /> <value xsi:type="ST" value="<pre> <b>METABOLIC PANEL, COMPREHN</b> 1393.69523171411728.9> 03208.50.80900520< /pre>" /> <referenceRange> <observationRange> < text /> </observationRange> </referenceRange> </ observation> </component> </organizer> </entry> <entry> <organizer moodCode="EVN" classCode="BATTERY"> <templateId root= "216.840.1.129706.10..22.4.1" /> <id nullFlavor="NA" /> <code codeSystem="local" code="355586" displayName="CBC With Differential/Platelet" / > <statusCode code="completed" /> <component> <observation moodCode="EVN" classCode="OBS"> <templateId root= "16.840.1.381660.10..22.4.2" /> <id nullFlavor="NA" /> < code codeSystem="local" code="903471" displayName="WBC" /> <statusCode code="completed" /> <effectiveTime value="" /> < value unit="x10E3/uL" xsi:type="PQ" value="5.1" /> <referenceRange> <observationRange> <text>3.4-10.8</text> </ observationRange> </referenceRange> </observation> </ component> <component> <observation moodCode="EVN" classCode="OBS"> <templateId root="16.840.1.647982.10...4.2" /> <id nullFlavor="NA" /> <code codeSystem="local" code="210437" displayName= "RBC" /> <statusCode code="completed" /> <effectiveTime value= "" /> <value unit="x10E6/uL" xsi:type="PQ" value="4.44" /> <referenceRange> <observationRange> <text>3.77 -5.28</text> </observationRange> </referenceRange> </ observation> </component> <component> <observation moodCode= "EVN" classCode="OBS"> <templateId root="16.840.1.077868.22.4.2 " /> <id nullFlavor="NA" /> <code codeSystem="local" code= "532659" displayName="Hemoglobin" /> <statusCode code="completed" /> <effectiveTime value="" /> <value unit="g/dL" xsi: type="PQ" value="13.7" /> <referenceRange> <observationRange > <text>11.1-15.9</text> </observationRange> </ referenceRange> </observation> </component> <component> <observation moodCode="EVN" classCode="OBS"> <templateId root= "216.840.1.816678.22.4.2" /> <id nullFlavor="NA" /> < code codeSystem="local" code="824830" displayName="Hematocrit" /> < statusCode code="completed" /> <effectiveTime value="" /> <value unit="%" xsi:type="PQ" value="39.8" /> < referenceRange> <observationRange> <text>34.0-46.6</text > </observationRange> </referenceRange> </observation > </component> <component> <observation moodCode="EVN" classCode="OBS"> <templateId root="216.840.1.426665.10.2022.4.2" /> <id nullFlavor="NA" /> <code codeSystem="local" code="308595" displayName="MCV" /> <statusCode code="completed" /> < effectiveTime value="" /> <value unit="fL" xsi:type="PQ" value="90" /> <referenceRange> <observationRange> <text>79-97</text> </observationRange> </referenceRange > </observation> </component> <component> <observation moodCode="EVN" classCode="OBS"> <templateId root= "216.840.1.482623.10.22.4.2" /> <id nullFlavor="NA" /> < code codeSystem="local" code="434856" displayName="[facility]" /> <statusCode code="completed" /> <effectiveTime value="" /> < value unit="pg" xsi:type="PQ" value="30.9" /> <referenceRange> <observationRange> <text>26.6-33.0</text> </ observationRange> </referenceRange> </observation> </ component> <component> <observation moodCode="EVN" classCode="OBS"> <templateId root="2.840.1.410581.10..4.2" /> <id nullFlavor="NA" /> <code codeSystem="local" code="045475" displayName= "[facility]" /> <statusCode code="completed" /> <effectiveTime value ="" /> <value unit="g/dL" xsi:type="PQ" value="34.4" /> <referenceRange> <observationRange> <text>31.5- 35.7</text> </observationRange> </referenceRange> </ observation> </component> <component> <observation moodCode= "EVN" classCode="OBS"> <templateId root="05.20.840.1.173654.10.20.22.4.2 " /> <id nullFlavor="NA" /> <code codeSystem="local" code= "888323" displayName="RDW" /> <statusCode code="completed" /> <effectiveTime value="" /> <value unit="%" xsi:type="PQ " value="12.3" /> <referenceRange> <observationRange> <text>12.3-15.4</text> </observationRange> </ referenceRange> </observation> </component> <component> <observation moodCode="EVN" classCode="OBS"> <templateId root= "216.840.1.785609.10.2022.4.2" /> <id nullFlavor="NA" /> < code codeSystem="local" code="987309" displayName="Platelets" /> < statusCode code="completed" /> <effectiveTime value="" /> <value unit="x10E3/uL" xsi:type="PQ" value="251" /> < referenceRange> <observationRange> <text>150-379</text> </observationRange> </referenceRange> </observation > </component> <component> <observation moodCode="EVN" classCode="OBS"> <templateId root="05.20.840.1.830727.10.22.4.2" /> <id nullFlavor="NA" /> <code codeSystem="local" code="724613" displayName="Neutrophils" /> <statusCode code="completed" /> < effectiveTime value="" /> <value unit="%" xsi:type="PQ " value="59" /> <referenceRange> <observationRange> <text /> </observationRange> </referenceRange> </observation> </component> <component> <observation moodCode= "EVN" classCode="OBS"> <templateId root="16.840.1.949737.10.2022.4.2 " /> <id nullFlavor="NA" /> <code codeSystem="local" code= "845273" displayName="Lymphs" /> <statusCode code="completed" /> <effectiveTime value="" /> <value unit="%" xsi:type ="PQ" value="28" /> <referenceRange> <observationRange> <text /> </observationRange> </referenceRange> </observation> </component> <component> <observation moodCode="EVN" classCode="OBS"> <templateId root= "16.840.1.630616.10.2022.4.2" /> <id nullFlavor="NA" /> < code codeSystem="local" code="180986" displayName="Monocytes" /> < statusCode code="completed" /> <effectiveTime value="" /> <value unit="%" xsi:type="PQ" value="12" /> < referenceRange> <observationRange> <text /> < /observationRange> </referenceRange> </observation> </ component> <component> <observation moodCode="EVN" classCode="OBS"> <templateId root="05.20.840.1.437364.10.2022.4.2" /> <id nullFlavor="NA" /> <code codeSystem="local" code="665824" displayName= "Eos" /> <statusCode code="completed" /> <effectiveTime value= "" /> <value unit="%" xsi:type="PQ" value="1" /> <referenceRange> <observationRange> <text /> </observationRange> </referenceRange> </observation> < /component> <component> <observation moodCode="EVN" classCode="OBS" > <templateId root="05.20.840.1.717691.10.2022.4.2" /> <id nullFlavor="NA" /> <code codeSystem="local" code="502389" displayName= "Basos" /> <statusCode code="completed" /> <effectiveTime value="" /> <value unit="%" xsi:type="PQ" value="0" /> <referenceRange> <observationRange> <text /> </observationRange> </referenceRange> </observation> </component> <component> <observation moodCode="EVN" classCode ="OBS"> <templateId root="2.16.840.1.624297.10...4.2" /> < id nullFlavor="NA" /> <code codeSystem="local" code="694120" displayName="Neutrophils (Absolute)" /> <statusCode code="completed" / > <effectiveTime value="" /> <value unit="x10E3/uL " xsi:type="PQ" value="3.0" /> <referenceRange> < observationRange> <text>1.4-7.0</text> </ observationRange> </referenceRange> </observation> </ component> <component> <observation moodCode="EVN" classCode="OBS"> <templateId root="16.840.1.197858.10..4.2" /> <id nullFlavor="NA" /> <code codeSystem="local" code="484261" displayName= "Lymphs (Absolute)" /> <statusCode code="completed" /> < effectiveTime value="" /> <value unit="x10E3/uL" xsi:type= "PQ" value="1.4" /> <referenceRange> <observationRange> <text>0.7-3.1</text> </observationRange> </ referenceRange> </observation> </component> <component> <observation moodCode="EVN" classCode="OBS"> <templateId root= "216.840.1.976625.10.20.22.4.2" /> <id nullFlavor="NA" /> < code codeSystem="local" code="873776" displayName="Monocytes(Absolute)" /> <statusCode code="completed" /> <effectiveTime value=" " /> <value unit="x10E3/uL" xsi:type="PQ" value="0.6" /> < referenceRange> <observationRange> <text>0.1-0.9</text> </observationRange> </referenceRange> </observation > </component> <component> <observation moodCode="EVN" classCode="OBS"> <templateId root="2.16.840.1.317146.10...4.2" /> <id nullFlavor="NA" /> <code codeSystem="local" code="592533" displayName="Eos (Absolute)" /> <statusCode code="completed" /> <effectiveTime value="" /> <value unit="x10E3/uL" xsi: type="PQ" value="0.1" /> <referenceRange> <observationRange > <text>0.0-0.4</text> </observationRange> </ referenceRange> </observation> </component> <component> <observation moodCode="EVN" classCode="OBS"> <templateId root= "2.16.840.1.320059....4.2" /> <id nullFlavor="NA" /> < code codeSystem="local" code="251876" displayName="Baso (Absolute)" /> <statusCode code="completed" /> <effectiveTime value="" /> <value unit="x10E3/uL" xsi:type="PQ" value="0.0" /> < referenceRange> <observationRange> <text>0.0-0.2</text> </observationRange> </referenceRange> </observation > </component> </organizer> </entry> <entry> <organizer moodCode= "EVN" classCode="BATTERY"> <templateId root="216.840.1.696793.10...4.1 " /> <id nullFlavor="NA" /> <code codeSystem="local" code="926805" displayName="Comp. Metabolic Panel (14)" /> <statusCode code="completed" / > <component> <observation moodCode="EVN" classCode="OBS"> <templateId root="216.840.1.751011.10...4.2" /> <id nullFlavor="NA " /> <code codeSystem="local" code="785728" displayName="Glucose, Serum " /> <statusCode code="completed" /> <effectiveTime value= "" /> <value unit="mg/dL" xsi:type="PQ" value="93" /> <referenceRange> <observationRange> <text>65-99</ text> </observationRange> </referenceRange> </ observation> </component> <component> <observation moodCode= "EVN" classCode="OBS"> <templateId root="216.840.1.908791.10...4.2 " /> <id nullFlavor="NA" /> <code codeSystem="local" code= "890482" displayName="BUN" /> <statusCode code="completed" /> <effectiveTime value="[id number]" /> <value unit="mg/dL" xsi:type="PQ " value="9" /> <referenceRange> <observationRange> <text>8-27</text> </observationRange> </referenceRange > </observation> </component> <component> <observation moodCode="EVN" classCode="OBS"> <templateId root= "216.840.1.102915.01.21.22.4.2" /> <id nullFlavor="NA" /> < code codeSystem="local" code="410929" displayName="Creatinine, Serum" /> <statusCode code="completed" /> <effectiveTime value="" /> <value unit="mg/dL" xsi:type="PQ" value="0.65" /> < referenceRange> <observationRange> <text>0.57-1.00</text > </observationRange> </referenceRange> </observation > </component> <component> <observation moodCode="EVN" classCode="OBS"> <templateId root="2.16.840.1.450285.01.21.22.4.2" /> <id nullFlavor="NA" /> <code codeSystem="local" code="351708" displayName="eGFR If NonAfricn Am" /> <statusCode code="completed" /> <effectiveTime value="" /> <value unit="mL/min/ 1.73" xsi:type="PQ" value="92" /> <referenceRange> < observationRange> <text> >59</text> </ observationRange> </referenceRange> </observation> </ component> <component> <observation moodCode="EVN" classCode="OBS"> <templateId root="216.840.1.541441.01.21.22.4.2" /> <id nullFlavor="NA" /> <code codeSystem="local" code="880822" displayName= "eGFR If Africn Am" /> <statusCode code="completed" /> < effectiveTime value="[id number]" /> <value unit="mL/min/1.73" xsi: type="PQ" value="106" /> <referenceRange> <observationRange > <text> >59</text> </observationRange> < /referenceRange> </observation> </component> <component> <observation moodCode="EVN" classCode="OBS"> <templateId root= "216.840.1.730214.10.2022.4.2" /> <id nullFlavor="NA" /> < code codeSystem="local" code="284088" displayName="BUN/Creatinine Ratio" /> <statusCode code="completed" /> <effectiveTime value= "" /> <value unit="" xsi:type="PQ" value="14" /> < referenceRange> <observationRange> <text>11-26</text> </observationRange> </referenceRange> </observation> </component> <component> <observation moodCode="EVN" classCode= "OBS"> <templateId root="05.20.840.1.398749.22.4.2" /> < id nullFlavor="NA" /> <code codeSystem="local" code="769812" displayName="Sodium, Serum" /> <statusCode code="completed" /> <effectiveTime value="" /> <value unit="mmol/L" xsi:type= "PQ" value="144" /> <referenceRange> <observationRange> <text>134-144</text> </observationRange> </ referenceRange> </observation> </component> <component> <observation moodCode="EVN" classCode="OBS"> <templateId root= "05.20.840.1.667935.10.20.22.4.2" /> <id nullFlavor="NA" /> < code codeSystem="local" code="545430" displayName="Potassium, Serum" /> <statusCode code="completed" /> <effectiveTime value="" / > <value unit="mmol/L" xsi:type="PQ" value="4.4" /> < referenceRange> <observationRange> <text>3.5-5.2</text> </observationRange> </referenceRange> </observation > </component> <component> <observation moodCode="EVN" classCode="OBS"> <templateId root="05.20.840.1.514469.10..22.4.2" /> <id nullFlavor="NA" /> <code codeSystem="local" code="685609" displayName="Chloride, Serum" /> <statusCode code="completed" /> <effectiveTime value="" /> <value unit="mmol/L" xsi: type="PQ" value="103" /> <referenceRange> <observationRange > <text>96-106</text> </observationRange> </ referenceRange> </observation> </component> <component> <observation moodCode="EVN" classCode="OBS"> <templateId root= "05.20.840.1.805184.10.4.2" /> <id nullFlavor="NA" /> < code codeSystem="local" code="697331" displayName="Carbon Dioxide, Total" /> <statusCode code="completed" /> <effectiveTime value= "" /> <value unit="mmol/L" xsi:type="PQ" value="28" /> <referenceRange> <observationRange> <text>18-29</ text> </observationRange> </referenceRange> </ observation> </component> <component> <observation moodCode= "EVN" classCode="OBS"> <templateId root="05.20.840.1.017634.10.2022.4.2 " /> <id nullFlavor="NA" /> <code codeSystem="local" code= "243002" displayName="Calcium, Serum" /> <statusCode code="completed" / > <effectiveTime value="" /> <value unit="mg/dL" xsi:type="PQ" value="9.1" /> <referenceRange> < observationRange> <text>8.7-10.3</text> </ observationRange> </referenceRange> </observation> </ component> <component> <observation moodCode="EVN" classCode="OBS"> <templateId root="216.840.1.854224.10.4.2" /> <id nullFlavor="NA" /> <code codeSystem="local" code="738182" displayName= "Protein, Total, Serum" /> <statusCode code="completed" /> < effectiveTime value="" /> <value unit="g/dL" xsi:type="PQ" value="6.7" /> <referenceRange> <observationRange> <text>6.0-8.5</text> </observationRange> </ referenceRange> </observation> </component> <component> <observation moodCode="EVN" classCode="OBS"> <templateId root= "[id number]" /> <id nullFlavor="NA" /> < code codeSystem="local" code="093495" displayName="Albumin, Serum" /> < statusCode code="completed" /> <effectiveTime value="" /> <value unit="g/dL" xsi:type="PQ" value="4.4" /> < referenceRange> <observationRange> <text>3.6-4.8</text> </observationRange> </referenceRange> </observation > </component> <component> <observation moodCode="EVN" classCode="OBS"> <templateId root="05.20.840.1.437275.01.21.22.4.2" /> <id nullFlavor="NA" /> <code codeSystem="local" code="434098" displayName="Globulin, Total" /> <statusCode code="completed" /> <effectiveTime value="" /> <value unit="g/dL" xsi:type= "PQ" value="2.3" /> <referenceRange> <observationRange> <text>1.5-4.5</text> </observationRange> </ referenceRange> </observation> </component> <component> <observation moodCode="EVN" classCode="OBS"> <templateId root= "2.16.840.1.611665.01.21.224.2" /> <id nullFlavor="NA" /> < code codeSystem="local" code="345465" displayName="A/G Ratio" /> < statusCode code="completed" /> <effectiveTime value="" /> <value unit="" xsi:type="PQ" value="1.9" /> <referenceRange> <observationRange> <text>1.1-2.5</text> </ observationRange> </referenceRange> </observation> </ component> <component> <observation moodCode="EVN" classCode="OBS"> <templateId root="2.16.840.1.617240.01.21.224.2" /> <id nullFlavor="NA" /> <code codeSystem="local" code="692821" displayName= "Bilirubin, Total" /> <statusCode code="completed" /> < effectiveTime value="" /> <value unit="mg/dL" xsi:type="PQ " value="0.4" /> <referenceRange> <observationRange> <text>0.0-1.2</text> </observationRange> </ referenceRange> </observation> </component> <component> <observation moodCode="EVN" classCode="OBS"> <templateId root= "216.840.1.739257.10..22.4.2" /> <id nullFlavor="NA" /> < code codeSystem="local" code="713605" displayName="Alkaline Phosphatase, S" /> <statusCode code="completed" /> <effectiveTime value= "" /> <value unit="IU/L" xsi:type="PQ" value="87" /> <referenceRange> <observationRange> <text>39-117</ text> </observationRange> </referenceRange> </ observation> </component> <component> <observation moodCode= "EVN" classCode="OBS"> <templateId root="216.840.1.594443.10..22.4.2 " /> <id nullFlavor="NA" /> <code codeSystem="local" code= "082384" displayName="AST (SGOT)" /> <statusCode code="completed" /> <effectiveTime value="" /> <value unit="IU/L" xsi: type="PQ" value="14" /> <referenceRange> <observationRange> <text>0-40</text> </observationRange> </ referenceRange> </observation> </component> <component> <observation moodCode="EVN" classCode="OBS"> <templateId root= "216.840.1.091673.10.20.22.4.2" /> <id nullFlavor="NA" /> < code codeSystem="local" code="613204" displayName="ALT (SGPT)" /> < statusCode code="completed" /> <effectiveTime value="" /> <value unit="IU/L" xsi:type="PQ" value="12" /> <referenceRange > <observationRange> <text>0-32</text> </ observationRange> </referenceRange> </observation> </ component> </organizer> </entry> <entry> <organizer moodCode="EVN" classCode="BATTERY"> <templateId root="216.840.1.146471.10..4.1" /> <id nullFlavor="NA" /> <code codeSystem="local" code="183078" displayName="Lipid Panel" /> <statusCode code="completed" /> < component> <observation moodCode="EVN" classCode="OBS"> < templateId root="216.840.1.850237.10..4.2" /> <id nullFlavor="NA " /> <code codeSystem="local" code="401161" displayName="Cholesterol, Total" /> <statusCode code="completed" /> <effectiveTime value ="" /> <value unit="mg/dL" xsi:type="PQ" value="202" /> <interpretationCode codeSystem="local" code="H" /> < referenceRange> <observationRange> <text>100-199</text> </observationRange> </referenceRange> </observation > </component> <component> <observation moodCode="EVN" classCode="OBS"> <templateId root="16.840.1.103909.01.21.22.4.2" /> <id nullFlavor="NA" /> <code codeSystem="local" code="716904" displayName="Triglycerides" /> <statusCode code="completed" /> <effectiveTime value="946725607097" /> <value unit="mg/dL" xsi:type= "PQ" value="82" /> <referenceRange> <observationRange> <text>0-149</text> </observationRange> </ referenceRange> </observation> </component> <component> <observation moodCode="EVN" classCode="OBS"> <templateId root= "216.840.1.613282.10.22.4.2" /> <id nullFlavor="NA" /> < code codeSystem="local" code="395712" displayName="HDL Cholesterol" /> <statusCode code="completed" /> <effectiveTime value="934591040817" /> <value unit="mg/dL" xsi:type="PQ" value="64" /> < referenceRange> <observationRange> <text>>39</text> </observationRange> </referenceRange> </observation> </component> <component> <observation moodCode="EVN" classCode ="OBS"> <templateId root="216.840.1.935633.01.21.22.4.2" /> < id nullFlavor="NA" /> <code codeSystem="local" code="916925" displayName="VLDL Cholesterol Marcel" /> <statusCode code="completed" /> <effectiveTime value="997544387906" /> <value unit="mg/dL" xsi :type="PQ" value="16" /> <referenceRange> <observationRange > <text>5-40</text> </observationRange> </ referenceRange> </observation> </component> <component> <observation moodCode="EVN" classCode="OBS"> <templateId root= "05.20.840.1.471990.10.22.4.2" /> <id nullFlavor="NA" /> < code codeSystem="local" code="768316" displayName="LDL Cholesterol Calc" /> <statusCode code="completed" /> <effectiveTime value= "842306875240" /> <value unit="mg/dL" xsi:type="PQ" value="122" /> <interpretationCode codeSystem="local" code="H" /> < referenceRange> <observationRange> <text>0-99</text> </observationRange> </referenceRange> </observation> </component> </organizer> </entry> <entry> <organizer moodCode="EVN " classCode="BATTERY"> <templateId root="05.20.840.1.108362.10..4.1" / > <id nullFlavor="NA" /> <code codeSystem="local" code="750023" displayName="Ova + Parasite Exam" /> <statusCode code="completed" /> < component> <observation moodCode="EVN" classCode="OBS"> < templateId root="05.20.840.1.977539.10...4.2" /> <id nullFlavor="NA " /> <code codeSystem="local" code="886737" displayName="Ova + Parasite Exam" /> <statusCode code="completed" /> < effectiveTime value="554947229005" /> <value unit="" xsi:type="PQ" value="Note" /> <referenceRange> <observationRange> <text /> </observationRange> </referenceRange> </observation> </component> </organizer> </entry> <entry> < organizer moodCode="EVN" classCode="BATTERY"> <templateId root= "05.20.840.1.460684.10..4.1" /> <id nullFlavor="NA" /> <code codeSystem="local" code="449492" displayName="White Blood Cells (WBC), Stool" / > <statusCode code="completed" /> <component> <observation moodCode="EVN" classCode="OBS"> <templateId root= "05.20.840.1.660810.01.21.224.2" /> <id nullFlavor="NA" /> < code codeSystem="local" code="169315" displayName="White Blood Cells (WBC), Stool" /> <statusCode code="completed" /> <effectiveTime value ="315860342264" /> <value unit="" xsi:type="PQ" value="Note" /> <referenceRange> <observationRange> <text /> </observationRange> </referenceRange> </observation> </ component> </organizer> </entry> <entry> <organizer moodCode="EVN" classCode="BATTERY"> <templateId root="16.840.1.183940.01.21.224.1" /> <id nullFlavor="NA" /> <code codeSystem="local" code="940162" displayName="Stool Culture" /> <statusCode code="completed" /> < component> <observation moodCode="EVN" classCode="OBS"> < templateId root="16.840.1.386252.01.21.22.4.2" /> <id nullFlavor="NA " /> <code codeSystem="local" code="068907" displayName="Stool Culture " /> <statusCode code="completed" /> <effectiveTime value= "967447854544" /> <value unit="" xsi:type="PQ" value="Note" /> <referenceRange> <observationRange> <text /> </observationRange> </referenceRange> </observation> </ component> </organizer> </entry> <entry> <organizer moodCode="EVN" classCode="BATTERY"> <templateId root="16.840.1.055997.01.21.22.4.1" /> <id nullFlavor="NA" /> <code codeSystem="local" code="263877" displayName="CBC With Differential/Platelet" /> <statusCode code="completed " /> <component> <observation moodCode="EVN" classCode="OBS"> <templateId root="16.840.1.606832.1022.4.2" /> <id nullFlavor ="NA" /> <code codeSystem="local" code="328179" displayName="WBC" /> <statusCode code="completed" /> <effectiveTime value= "" /> <value unit="x10E3/uL" xsi:type="PQ" value="5.5" /> <referenceRange> <observationRange> <text>3.4- 10.8</text> </observationRange> </referenceRange> </ observation> </component> <component> <observation moodCode= "EVN" classCode="OBS"> <templateId root="05.20.840.1.211599.01.21.22.4.2 " /> <id nullFlavor="NA" /> <code codeSystem="local" code= "839927" displayName="RBC" /> <statusCode code="completed" /> <effectiveTime value="" /> <value unit="x10E6/uL" xsi:type= "PQ" value="4.63" /> <referenceRange> <observationRange> <text>3.77-5.28</text> </observationRange> </ referenceRange> </observation> </component> <component> <observation moodCode="EVN" classCode="OBS"> <templateId root= "05.20.840.1.492270.22.4.2" /> <id nullFlavor="NA" /> < code codeSystem="local" code="139267" displayName="Hemoglobin" /> < statusCode code="completed" /> <effectiveTime value="" /> <value unit="g/dL" xsi:type="PQ" value="14.0" /> < referenceRange> <observationRange> <text>11.1-15.9</text > </observationRange> </referenceRange> </observation > </component> <component> <observation moodCode="EVN" classCode="OBS"> <templateId root="216.840.1.377366.10.4.2" /> <id nullFlavor="NA" /> <code codeSystem="local" code="910787" displayName="Hematocrit" /> <statusCode code="completed" /> < effectiveTime value="629029968677" /> <value unit="%" xsi:type="PQ " value="43.0" /> <referenceRange> <observationRange> <text>34.0-46.6</text> </observationRange> </ referenceRange> </observation> </component> <component> <observation moodCode="EVN" classCode="OBS"> <templateId root= "16.840.1.439177.01.21.22.4.2" /> <id nullFlavor="NA" /> < code codeSystem="local" code="801135" displayName="MCV" /> <statusCode code="completed" /> <effectiveTime value="793927722554" /> < value unit="fL" xsi:type="PQ" value="93" /> <referenceRange> <observationRange> <text>79-97</text> </ observationRange> </referenceRange> </observation> </ component> <component> <observation moodCode="EVN" classCode="OBS"> <templateId root="216.840.1.340505.10..4.2" /> <id nullFlavor="NA" /> <code codeSystem="local" code="265251" displayName= "[facility]" /> <statusCode code="completed" /> <effectiveTime value= "164673588746" /> <value unit="pg" xsi:type="PQ" value="30.2" /> <referenceRange> <observationRange> <text>26.6-33.0< /text> </observationRange> </referenceRange> </ observation> </component> <component> <observation moodCode= "EVN" classCode="OBS"> <templateId root="2.16.840.1.689212.10.20.22.4.2 " /> <id nullFlavor="NA" /> <code codeSystem="local" code= "284619" displayName="[facility]" /> <statusCode code="completed" /> <effectiveTime value="746240567522" /> <value unit="g/dL" xsi:type= "PQ" value="32.6" /> <referenceRange> <observationRange> <text>31.5-35.7</text> </observationRange> </ referenceRange> </observation> </component> <component> <observation moodCode="EVN" classCode="OBS"> <templateId root= "216.840.1.805437.10.20.22.4.2" /> <id nullFlavor="NA" /> < code codeSystem="local" code="958515" displayName="RDW" /> <statusCode code="completed" /> <effectiveTime value="291598788930" /> < value unit="%" xsi:type="PQ" value="13.4" /> <referenceRange> <observationRange> <text>12.3-15.4</text> </ observationRange> </referenceRange> </observation> </ component> <component> <observation moodCode="EVN" classCode="OBS"> <templateId root="2.840.1.082204.1022.4.2" /> <id nullFlavor="NA" /> <code codeSystem="local" code="729662" displayName= "Platelets" /> <statusCode code="completed" /> <effectiveTime value="865696234403" /> <value unit="x10E3/uL" xsi:type="PQ" value="277 " /> <referenceRange> <observationRange> <text> 150-379</text> </observationRange> </referenceRange> </observation> </component> <component> <observation moodCode= "EVN" classCode="OBS"> <templateId root="216.840.1.596123.01.21.22.4.2 " /> <id nullFlavor="NA" /> <code codeSystem="local" code= "176371" displayName="Neutrophils" /> <statusCode code="completed" /> <effectiveTime value="" /> <value unit="%" xsi :type="PQ" value="61" /> <referenceRange> <observationRange > <text>Not Estab.</text> </observationRange> < /referenceRange> </observation> </component> <component> <observation moodCode="EVN" classCode="OBS"> <templateId root= "216.840.1.690846.10.22.4.2" /> <id nullFlavor="NA" /> < code codeSystem="local" code="675778" displayName="Lymphs" /> < statusCode code="completed" /> <effectiveTime value="128669764041" /> <value unit="%" xsi:type="PQ" value="26" /> < referenceRange> <observationRange> <text>Not Estab.</ text> </observationRange> </referenceRange> </ observation> </component> <component> <observation moodCode= "EVN" classCode="OBS"> <templateId root="2.16.840.1.264446.10..22.4.2 " /> <id nullFlavor="NA" /> <code codeSystem="local" code= "589743" displayName="Monocytes" /> <statusCode code="completed" /> <effectiveTime value="" /> <value unit="%" xsi: type="PQ" value="11" /> <referenceRange> <observationRange> <text>Not Estab.</text> </observationRange> </ referenceRange> </observation> </component> <component> <observation moodCode="EVN" classCode="OBS"> <templateId root= "2.16.840.1.066544.10..22.4.2" /> <id nullFlavor="NA" /> < code codeSystem="local" code="651475" displayName="Eos" /> <statusCode code="completed" /> <effectiveTime value="" /> < value unit="%" xsi:type="PQ" value="2" /> <referenceRange> <observationRange> <text>Not Estab.</text> </ observationRange> </referenceRange> </observation> </ component> <component> <observation moodCode="EVN" classCode="OBS"> <templateId root="2.16.840.1.677387.10..22.4.2" /> <id nullFlavor="NA" /> <code codeSystem="local" code="376939" displayName= "Basos" /> <statusCode code="completed" /> <effectiveTime value="237142566612" /> <value unit="%" xsi:type="PQ" value="0" /> <referenceRange> <observationRange> <text>Not Estab.</text> </observationRange> </referenceRange> < /observation> </component> <component> <observation moodCode= "EVN" classCode="OBS"> <templateId root="16.840.1.266389.10.22.4.2 " /> <id nullFlavor="NA" /> <code codeSystem="local" code= "698882" displayName="Neutrophils (Absolute)" /> <statusCode code= "completed" /> <effectiveTime value="395078761534" /> <value unit="x10E3/uL" xsi:type="PQ" value="3.3" /> <referenceRange> <observationRange> <text>1.4-7.0</text> </ observationRange> </referenceRange> </observation> </ component> <component> <observation moodCode="EVN" classCode="OBS"> <templateId root="05.20.840.1.109902.01.21.22.4.2" /> <id nullFlavor="NA" /> <code codeSystem="local" code="187929" displayName= "Lymphs (Absolute)" /> <statusCode code="completed" /> < effectiveTime value="915222895761" /> <value unit="x10E3/uL" xsi:type= "PQ" value="1.5" /> <referenceRange> <observationRange> <text>0.7-3.1</text> </observationRange> </ referenceRange> </observation> </component> <component> <observation moodCode="EVN" classCode="OBS"> <templateId root= "05.20.840.1.623286.22.4.2" /> <id nullFlavor="NA" /> < code codeSystem="local" code="310068" displayName="Monocytes(Absolute)" /> <statusCode code="completed" /> <effectiveTime value="825208023671 " /> <value unit="x10E3/uL" xsi:type="PQ" value="0.6" /> < referenceRange> <observationRange> <text>0.1-0.9</text> </observationRange> </referenceRange> </observation > </component> <component> <observation moodCode="EVN" classCode="OBS"> <templateId root="216.840.1.528283.01.21.22.4.2" /> <id nullFlavor="NA" /> <code codeSystem="local" code="930672" displayName="Eos (Absolute)" /> <statusCode code="completed" /> <effectiveTime value="642125282844" /> <value unit="x10E3/uL" xsi: type="PQ" value="0.1" /> <referenceRange> <observationRange > <text>0.0-0.4</text> </observationRange> </ referenceRange> </observation> </component> <component> <observation moodCode="EVN" classCode="OBS"> <templateId root= "216.840.1.564140.01.21.22.4.2" /> <id nullFlavor="NA" /> < code codeSystem="local" code="013083" displayName="Baso (Absolute)" /> <statusCode code="completed" /> <effectiveTime value="829420123900" /> <value unit="x10E3/uL" xsi:type="PQ" value="0.0" /> < referenceRange> <observationRange> <text>0.0-0.2</text> </observationRange> </referenceRange> </observation > </component> <component> <observation moodCode="EVN" classCode="OBS"> <templateId root="216840.1.177147.22.4.2" /> <id nullFlavor="NA" /> <code codeSystem="local" code="733080" displayName="Immature Granulocytes" /> <statusCode code="completed" /> <effectiveTime value="492306611621" /> <value unit="%" xsi:type="PQ" value="0" /> <referenceRange> < observationRange> <text>Not Estab.</text> </ observationRange> </referenceRange> </observation> </ component> <component> <observation moodCode="EVN" classCode="OBS"> <templateId root="840.1.157546.01.21.22.4.2" /> <id nullFlavor="NA" /> <code codeSystem="local" code="820676" displayName= "Immature Grans (Abs)" /> <statusCode code="completed" /> < effectiveTime value="536807578602" /> <value unit="x10E3/uL" xsi:type= "PQ" value="0.0" /> <referenceRange> <observationRange> <text>0.0-0.1</text> </observationRange> </ referenceRange> </observation> </component> </organizer> </entry > <entry> <organizer moodCode="EVN" classCode="BATTERY"> <templateId root="840.1.915835.01.21.22.4.1" /> <id nullFlavor="NA" /> <code codeSystem="local" code="241150" displayName="Comp. Metabolic Panel (14)" /> <statusCode code="completed" /> <component> <observation moodCode ="EVN" classCode="OBS"> <templateId root= "05.20.840.1.250006.22.4.2" /> <id nullFlavor="NA" /> < code codeSystem="local" code="209449" displayName="Glucose, Serum" /> < statusCode code="completed" /> <effectiveTime value="911972335309" /> <value unit="mg/dL" xsi:type="PQ" value="88" /> < referenceRange> <observationRange> <text>65-99</text> </observationRange> </referenceRange> </observation> </component> <component> <observation moodCode="EVN" classCode= "OBS"> <templateId root="2.16.840.1.647543.10..22.4.2" /> < id nullFlavor="NA" /> <code codeSystem="local" code="359248" displayName="BUN" /> <statusCode code="completed" /> < effectiveTime value="668351115977" /> <value unit="mg/dL" xsi:type="PQ " value="15" /> <referenceRange> <observationRange> <text>8-27</text> </observationRange> </referenceRange > </observation> </component> <component> <observation moodCode="EVN" classCode="OBS"> <templateId root= "2.16.840.1.078042.10..22.4.2" /> <id nullFlavor="NA" /> < code codeSystem="local" code="791105" displayName="Creatinine, Serum" /> <statusCode code="completed" /> <effectiveTime value="867752201685" /> <value unit="mg/dL" xsi:type="PQ" value="0.75" /> < referenceRange> <observationRange> <text>0.57-1.00</text > </observationRange> </referenceRange> </observation > </component> <component> <observation moodCode="EVN" classCode="OBS"> <templateId root="16.840.1.463356.10..22.4.2" /> <id nullFlavor="NA" /> <code codeSystem="local" code="147285" displayName="eGFR If NonAfricn Am" /> <statusCode code="completed" /> <effectiveTime value="444664898648" /> <value unit="mL/min/ 1.73" xsi:type="PQ" value="82" /> <referenceRange> < observationRange> <text> >59</text> </ observationRange> </referenceRange> </observation> </ component> <component> <observation moodCode="EVN" classCode="OBS"> <templateId root="05.20.840.1.407779.10.4.2" /> <id nullFlavor="NA" /> <code codeSystem="local" code="802593" displayName= "eGFR If Africn Am" /> <statusCode code="completed" /> < effectiveTime value="035470414734" /> <value unit="mL/min/1.73" xsi: type="PQ" value="95" /> <referenceRange> <observationRange> <text> >59</text> </observationRange> </ referenceRange> </observation> </component> <component> <observation moodCode="EVN" classCode="OBS"> <templateId root= "05.20.840.1.126951.10.22.4.2" /> <id nullFlavor="NA" /> < code codeSystem="local" code="307106" displayName="BUN/Creatinine Ratio" /> <statusCode code="completed" /> <effectiveTime value= "107067310985" /> <value unit="" xsi:type="PQ" value="20" /> < referenceRange> <observationRange> <text>12-28</text> </observationRange> </referenceRange> </observation> </component> <component> <observation moodCode="EVN" classCode= "OBS"> <templateId root="216.840.1.701377.10.4.2" /> < id nullFlavor="NA" /> <code codeSystem="local" code="712599" displayName="Sodium, Serum" /> <statusCode code="completed" /> <effectiveTime value="084682607691" /> <value unit="mmol/L" xsi:type= "PQ" value="144" /> <referenceRange> <observationRange> <text>134-144</text> </observationRange> </ referenceRange> </observation> </component> <component> <observation moodCode="EVN" classCode="OBS"> <templateId root= "05.20.840.1.601153.01.21.22.4.2" /> <id nullFlavor="NA" /> < code codeSystem="local" code="617215" displayName="Potassium, Serum" /> <statusCode code="completed" /> <effectiveTime value="688469246141" / > <value unit="mmol/L" xsi:type="PQ" value="4.1" /> < referenceRange> <observationRange> <text>3.5-5.2</text> </observationRange> </referenceRange> </observation > </component> <component> <observation moodCode="EVN" classCode="OBS"> <templateId root="05.20.840.1.538057...4.2" /> <id nullFlavor="NA" /> <code codeSystem="local" code="108482" displayName="Chloride, Serum" /> <statusCode code="completed" /> <effectiveTime value="638921313274" /> <value unit="mmol/L" xsi: type="PQ" value="103" /> <referenceRange> <observationRange > <text>96-106</text> </observationRange> </ referenceRange> </observation> </component> <component> <observation moodCode="EVN" classCode="OBS"> <templateId root= "216.840.1.638879.10..22.4.2" /> <id nullFlavor="NA" /> < code codeSystem="local" code="128870" displayName="Carbon Dioxide, Total" /> <statusCode code="completed" /> <effectiveTime value= "579628513290" /> <value unit="mmol/L" xsi:type="PQ" value="28" /> <referenceRange> <observationRange> <text>18-29</ text> </observationRange> </referenceRange> </ observation> </component> <component> <observation moodCode= "EVN" classCode="OBS"> <templateId root="05.20.840.1.356896.10...4.2 " /> <id nullFlavor="NA" /> <code codeSystem="local" code= "926198" displayName="Calcium, Serum" /> <statusCode code="completed" / > <effectiveTime value="361086527147" /> <value unit="mg/dL" xsi:type="PQ" value="9.6" /> <referenceRange> < observationRange> <text>8.7-10.3</text> </ observationRange> </referenceRange> </observation> </ component> <component> <observation moodCode="EVN" classCode="OBS"> <templateId root="05.20.840.1.625544.10.20.22.4.2" /> <id nullFlavor="NA" /> <code codeSystem="local" code="717465" displayName= "Protein, Total, Serum" /> <statusCode code="completed" /> < effectiveTime value="192065211458" /> <value unit="g/dL" xsi:type="PQ" value="7.0" /> <referenceRange> <observationRange> <text>6.0-8.5</text> </observationRange> </ referenceRange> </observation> </component> <component> <observation moodCode="EVN" classCode="OBS"> <templateId root= "2.16.840.1.276386.10..22.4.2" /> <id nullFlavor="NA" /> < code codeSystem="local" code="592035" displayName="Albumin, Serum" /> < statusCode code="completed" /> <effectiveTime value="346795579663" /> <value unit="g/dL" xsi:type="PQ" value="4.4" /> < referenceRange> <observationRange> <text>3.6-4.8</text> </observationRange> </referenceRange> </observation > </component> <component> <observation moodCode="EVN" classCode="OBS"> <templateId root="2.16.840.1.348150.10..22.4.2" /> <id nullFlavor="NA" /> <code codeSystem="local" code="809662" displayName="Globulin, Total" /> <statusCode code="completed" /> <effectiveTime value="036741619646" /> <value unit="g/dL" xsi:type= "PQ" value="2.6" /> <referenceRange> <observationRange> <text>1.5-4.5</text> </observationRange> </ referenceRange> </observation> </component> <component> <observation moodCode="EVN" classCode="OBS"> <templateId root= "16.840.1.206823.10.20.22.4.2" /> <id nullFlavor="NA" /> < code codeSystem="local" code="262255" displayName="A/G Ratio" /> < statusCode code="completed" /> <effectiveTime value="932712584729" /> <value unit="" xsi:type="PQ" value="1.7" /> <referenceRange> <observationRange> <text>1.2-2.2</text> </ observationRange> </referenceRange> </observation> </ component> <component> <observation moodCode="EVN" classCode="OBS"> <templateId root="05.20.840.1.348116.10.22.4.2" /> <id nullFlavor="NA" /> <code codeSystem="local" code="430452" displayName= "Bilirubin, Total" /> <statusCode code="completed" /> < effectiveTime value="[id number]" /> <value unit="mg/dL" xsi:type="PQ " value="0.3" /> <referenceRange> <observationRange> <text>0.0-1.2</text> </observationRange> </ referenceRange> </observation> </component> <component> <observation moodCode="EVN" classCode="OBS"> <templateId root= "05.20.840.1.931738.10.20.22.4.2" /> <id nullFlavor="NA" /> < code codeSystem="local" code="649482" displayName="Alkaline Phosphatase, S" /> <statusCode code="completed" /> <effectiveTime value= "[id number]" /> <value unit="IU/L" xsi:type="PQ" value="80" /> <referenceRange> <observationRange> <text>39-117</ text> </observationRange> </referenceRange> </ observation> </component> <component> <observation moodCode= "EVN" classCode="OBS"> <templateId root="2.16.840.1.560287.10..22.4.2 " /> <id nullFlavor="NA" /> <code codeSystem="local" code= "916473" displayName="AST (SGOT)" /> <statusCode code="completed" /> <effectiveTime value="907377037746" /> <value unit="IU/L" xsi: type="PQ" value="15" /> <referenceRange> <observationRange> <text>0-40</text> </observationRange> </ referenceRange> </observation> </component> <component> <observation moodCode="EVN" classCode="OBS"> <templateId root= "216.840.1.291602.10..4.2" /> <id nullFlavor="NA" /> < code codeSystem="local" code="644384" displayName="ALT (SGPT)" /> < statusCode code="completed" /> <effectiveTime value="886845289887" /> <value unit="IU/L" xsi:type="PQ" value="15" /> <referenceRange > <observationRange> <text>0-32</text> </ observationRange> </referenceRange> </observation> </ component> </organizer> </entry> <entry> <organizer moodCode="EVN" classCode="BATTERY"> <templateId root="2.16.840.1.136576.10..22.4.1" /> <id nullFlavor="NA" /> <code codeSystem="local" code="373724" displayName="Sedimentation Rate-[facility]" /> <statusCode code="completed " /> <component> <observation moodCode="EVN" classCode="OBS"> <templateId root="216.840.1.885610.10..22.4.2" /> <id nullFlavor ="NA" /> <code codeSystem="local" code="553250" displayName= "[facility]" /> <statusCode code="completed" /> <effectiveTime value="499933117621" /> <value unit="mm/hr" xsi: type="PQ" value="6" /> <referenceRange> <observationRange> <text>0-40</text> </observationRange> </ referenceRange> </observation> </component> </organizer> </entry > <entry> <organizer moodCode="EVN" classCode="BATTERY"> <templateId root="2.16.840.1.392930.10..22.4.1" /> <id nullFlavor="NA" /> <code codeSystem="local" code="569481" displayName="C-Reactive Protein, Quant" /> <statusCode code="completed" /> <component> <observation moodCode= "EVN" classCode="OBS"> <templateId root="2.16.840.1.924250.10.20.22.4.2 " /> <id nullFlavor="NA" /> <code codeSystem="local" code= "640975" displayName="C-Reactive Protein, Quant" /> <statusCode code= "completed" /> <effectiveTime value="700381226042" /> <value unit="mg/L" xsi:type="PQ" value="5.7" /> <interpretationCode codeSystem ="local" code="H" /> <referenceRange> <observationRange> <text>0.0-4.9</text> </observationRange> </ referenceRange> </observation> </component> </organizer> </entry > <entry> <organizer moodCode="EVN" classCode="BATTERY"> <templateId root="16.840.1.423354.10..4.1" /> <id nullFlavor="NA" /> <code codeSystem="local" code="UA" displayName="Urinalysis with reflex microscopic" / > <statusCode code="completed" /> <component> <observation moodCode="EVN" classCode="OBS"> <templateId root= "05.20.840.1.974652.01.21.22.4.2" /> <id nullFlavor="NA" /> < code codeSystem="local" code="UAPP" displayName="Appearance" /> < statusCode code="completed" /> <effectiveTime value="" /> <value unit="NA" xsi:type="PQ" value="Sl Cloudy" /> < referenceRange> <observationRange> <text /> < /observationRange> </referenceRange> </observation> </ component> <component> <observation moodCode="EVN" classCode="OBS"> <templateId root="05.20.840.1.834129.01.21.22.4.2" /> <id nullFlavor="NA" /> <code codeSystem="local" code="UBIL" displayName= "Bilirubin" /> <statusCode code="completed" /> <effectiveTime value="" /> <value unit="NA" xsi:type="PQ" value="Negative " /> <referenceRange> <observationRange> <text> Negative</text> </observationRange> </referenceRange> </observation> </component> <component> <observation moodCode ="EVN" classCode="OBS"> <templateId root= "05.20.840.1.689915.01.21.22.4.2" /> <id nullFlavor="NA" /> < code codeSystem="local" code="UBLD" displayName="Blood" /> <statusCode code="completed" /> <effectiveTime value="" /> < value unit="NA" xsi:type="PQ" value="Pos 3+" /> <interpretationCode codeSystem="local" code="*" /> <referenceRange> < observationRange> <text>Negative</text> </ observationRange> </referenceRange> </observation> </ component> <component> <observation moodCode="EVN" classCode="OBS"> <templateId root="216.840.1.162125.10..4.2" /> <id nullFlavor="NA" /> <code codeSystem="local" code="UCOLR" displayName= "Color" /> <statusCode code="completed" /> <effectiveTime value="" /> <value unit="NA" xsi:type="PQ" value="Yellow" / > <referenceRange> <observationRange> <text /> </observationRange> </referenceRange> </observation > </component> <component> <observation moodCode="EVN" classCode="OBS"> <templateId root="216.840.1.272150.10...4.2" /> <id nullFlavor="NA" /> <code codeSystem="local" code="UGLU" displayName="Glucose, Urine" /> <statusCode code="completed" /> <effectiveTime value="" /> <value unit="" xsi:type="PQ" value="Negative" /> <referenceRange> <observationRange> <text>Negative</text> </observationRange> </ referenceRange> </observation> </component> <component> <observation moodCode="EVN" classCode="OBS"> <templateId root= "05.20.840.1.891719.10...4.2" /> <id nullFlavor="NA" /> < code codeSystem="local" code="UKET" displayName="Ketones" /> < statusCode code="completed" /> <effectiveTime value="" /> <value unit="" xsi:type="PQ" value="Trace" /> < interpretationCode codeSystem="local" code="*" /> <referenceRange> <observationRange> <text>Negative</text> </ observationRange> </referenceRange> </observation> </ component> <component> <observation moodCode="EVN" classCode="OBS"> <templateId root="05.20.840.1.674726.01.21.22.4.2" /> <id nullFlavor="NA" /> <code codeSystem="local" code="ULEU" displayName= "Leukocyte Esterase" /> <statusCode code="completed" /> < effectiveTime value="" /> <value unit="NA" xsi:type="PQ" value="Pos 2+" /> <interpretationCode codeSystem="local" code="*" /> <referenceRange> <observationRange> <text> Negative</text> </observationRange> </referenceRange> </observation> </component> <component> <observation moodCode ="EVN" classCode="OBS"> <templateId root= "05.20.840.1.895871.10..4.2" /> <id nullFlavor="NA" /> < code codeSystem="local" code="UNIT" displayName="Nitrites" /> < statusCode code="completed" /> <effectiveTime value="" /> <value unit="NA" xsi:type="PQ" value="Positive" /> < interpretationCode codeSystem="local" code="*" /> <referenceRange> <observationRange> <text>Negative</text> </ observationRange> </referenceRange> </observation> </ component> <component> <observation moodCode="EVN" classCode="OBS"> <templateId root="05.20.840.1.703206.10.2022.4.2" /> <id nullFlavor="NA" /> <code codeSystem="local" code="UPH" displayName="pH " /> <statusCode code="completed" /> <effectiveTime value= "" /> <value unit="NA" xsi:type="PQ" value="6.5" /> <referenceRange> <observationRange> <text>5.0-8.0</ text> </observationRange> </referenceRange> </ observation> </component> <component> <observation moodCode= "EVN" classCode="OBS"> <templateId root="840.1.566154.01.21.22.4.2 " /> <id nullFlavor="NA" /> <code codeSystem="local" code= "UPRO" displayName="Protein" /> <statusCode code="completed" /> <effectiveTime value="" /> <value unit="" xsi:type="PQ" value="Pos 2+" /> <interpretationCode codeSystem="local" code="*" /> <referenceRange> <observationRange> <text> Negative</text> </observationRange> </referenceRange> </observation> </component> <component> <observation moodCode ="EVN" classCode="OBS"> <templateId root= "05.20.840.1.974003..22.4.2" /> <id nullFlavor="NA" /> < code codeSystem="local" code="USPG" displayName="Specific [place]" /> < statusCode code="completed" /> <effectiveTime value="" /> <value unit="NA" xsi:type="PQ" value="1.023" /> < referenceRange> <observationRange> <text>1.003-1.030</ text> </observationRange> </referenceRange> </ observation> </component> <component> <observation moodCode= "EVN" classCode="OBS"> <templateId root="216.840.1.512803.10.4.2 " /> <id nullFlavor="NA" /> <code codeSystem="local" code= "UTYP" displayName="UA Collection type" /> <statusCode code="completed " /> <effectiveTime value="" /> <value unit="NA" xsi:type="PQ" value="Cl Catch" /> <referenceRange> < observationRange> <text /> </observationRange> </referenceRange> </observation> </component> <component> <observation moodCode="EVN" classCode="OBS"> <templateId root= "216.840.1.402028.01.21.22.4.2" /> <id nullFlavor="NA" /> < code codeSystem="local" code="UURO" displayName="Urobilinogen" /> < statusCode code="completed" /> <effectiveTime value="" /> <value unit="mg/dL" xsi:type="PQ" value="Negative" /> < referenceRange> <observationRange> <text><1.0</text> </observationRange> </referenceRange> </observation > </component> </organizer> </entry> <entry> <organizer moodCode= "EVN" classCode="BATTERY"> <templateId root="2.16.840.1.849433.01.21.22.4.1 " /> <id nullFlavor="NA" /> <code codeSystem="local" code="UMIC" displayName="Urine Microscopic" /> <statusCode code="completed" /> < component> <observation moodCode="EVN" classCode="OBS"> < templateId root="840.1.884981.01.21.224.2" /> <id nullFlavor="NA " /> <code codeSystem="local" code="UBAC" displayName="Bacteria" /> <statusCode code="completed" /> <effectiveTime value= "" /> <value unit="NA" xsi:type="PQ" value="Moderate" /> <interpretationCode codeSystem="local" code="*" /> < referenceRange> <observationRange> <text /> < /observationRange> </referenceRange> </observation> </ component> <component> <observation moodCode="EVN" classCode="OBS"> <templateId root="840.1.551892.01.21.224.2" /> <id nullFlavor="NA" /> <code codeSystem="local" code="UEPI" displayName= "Epithelial Cells" /> <statusCode code="completed" /> < effectiveTime value="" /> <value unit="/HPF" xsi:type="PQ" value="0" /> <referenceRange> <observationRange> <text /> </observationRange> </referenceRange> </ observation> </component> <component> <observation moodCode= "EVN" classCode="OBS"> <templateId root="840.1.470497.01.21.224.2 " /> <id nullFlavor="NA" /> <code codeSystem="local" code= "URBC" displayName="RBC, Urine" /> <statusCode code="completed" /> <effectiveTime value="162424894733" /> <value unit="/HPF" xsi: type="PQ" value="20" /> <interpretationCode codeSystem="local" code="* " /> <referenceRange> <observationRange> <text> 0-2</text> </observationRange> </referenceRange> </ observation> </component> <component> <observation moodCode= "EVN" classCode="OBS"> <templateId root="2.16.840.1.650929.10.20.22.4.2 " /> <id nullFlavor="NA" /> <code codeSystem="local" code= "UWBC" displayName="WBC, Urine" /> <statusCode code="completed" /> <effectiveTime value="[id number]" /> <value unit="/HPF" xsi: type="PQ" value="20" /> <interpretationCode codeSystem="local" code="* " /> <referenceRange> <observationRange> <text> 0-4</text> </observationRange> </referenceRange> </ observation> </component> </organizer> </entry></section> Encounters ACCT No. Visit Date/Time Discharge Status Pt. Type Provider Facility Loc./Unit Complaint [id number] 05/18/2012 18:39:00 05/18/2012 20:31:00 DIS Emergency Harlan Samuel MD [facility] TERM [id number] 06/07/2016 08:36:00 Document Registration [id number] 07/07/2017 13:12:00 Document Registration [id number] 01/22/2015 12:43:43 Document Registration [id number] 01/22/2015 12:28:35 Document Registration [id number] 01/22/2015 11:47:31 Document Registration [id number] 01/22/2015 10:03:10 Document Registration [id number] 07/12/2014 23:59:00 Document Registration [id number] 03/04/2014 10:27:00 Document Registration [id number] 10/18/2017 20:51:29 10/18/2017 20:51:31 DIS Outpatient [id number] 01/23/2015 05:56:40 Document Registration [id number] 10/27/2014 06:00:30 Document Registration [id number] 10/27/2014 06:00:29 Document Registration [id number] 10/27/2014 06:00:28 Document Registration [id number] 10/27/2014 06:00:27 Document Registration [id number] 10/27/2014 06:00:26 Document Registration [id number] 10/27/2014 06:00:25 Document Registration [id number] 10/27/2014 06:00:23 Document Registration [id number] 10/03/2017 08:42:00 10/03/2017 23:59:59 CLS Outpatient [id number] 01/14/2015 06:05:00 01/14/2015 16:35:00 DIS Outpatient Alec CARRERO, [facility] [id number] 09/01/2013 17:40:00 09/01/2013 19:07:00 DIS Emergency Nabil CARRERO, [facility] 01/14/2015 06:51:57 ACT Document Registration [id number] 10/02/2017 15:00:00 10/02/2017 23:59:00 DIS Outpatient Meng Jace [facility]A [id number] 01/22/2015 11:47:31 Document Registration [id number] 11/01/2014 13:14:00 Document Registration [id number] 06/06/2016 16:35:00 Document Registration [id number] 03/23/2016 16:36:00 Document Registration [id number] 07/04/2017 00:00:00 DIS Document Registration [id number] 07/05/2017 09:19:00 Document Registration
[2017-10-19] MEDS ORDERED: DILTIAZEM INJECTION 125 MG in D5W 100 ML IVPB 100 ML IV SCH (20:00)
[2017-10-19] MEDS ORDERED: DILTIAZEM 25 MG/5 ML INJ (CARDIZEM) VIAL IVP ONE (20:00)
[2017-10-19] MEDS ORDERED: ASPIRIN 81 MG CHEW (CHILDREN'S ASA) PO ONE (20:00)
[2017-10-19 20:07] LABS: INR 1.1 (0.8-1.4); PROTHROMBIN TIME PATIENT 14.5 SEC (12.2-14.7)
[2017-10-19 20:08] LABS: ALANINE AMINOTRANSFERASE 16 U/L (0-55); ALBUMIN 4.6 GM/DL (3.2-4.5); ALKALINE PHOSPHATASE 77 U/L (40-136); BILIRUBIN,TOTAL 0.6 MG/DL (0.1-1.0); CALCIUM 9.4 MG/DL (8.5-10.1); CARBON DIOXIDE 26 MMOL/L (21-32); CHLORIDE 106 MMOL/L (98-107); GLUCOSE 102 MG/DL (70-105); MAGNESIUM 2.1 MG/DL (1.8-2.4); POTASSIUM 3.6 MMOL/L (3.6-5.0); SODIUM 141 MMOL/L (135-145); TOTAL PROTEIN 7.2 GM/DL (6.4-8.2)
[2017-10-19 20:15] LABS: MYOGLOBIN SERUM 22.7 NG/ML (10.0-92.0)
--- NOTE | 2017-10-19 20:27 | ED Chest Pain ---
General Chief Complaint: Chest Pain Stated Complaint: CP Source: patient, EMS, other Exam Limitations: no limitations History of Present Illness Date Seen by Provider: Oct 19, 2017 Time Seen by Provider: 19:36 Initial Comments Patient presents to ER by EMS from the local [facility] where she and some friends were down from [place] for a democrat when she began to experience some chest pain and pressure under her left breast anteriorly just prior to calling EMS. She says she felt like her heart has been on a rhythm for the past for 5 hours. She says she does not have a history of atrial fibrillation atrial flutter however she does feel like her heart gets out of rhythm sometimes she will do some maneuvers coughing and breathing hard and it we'll go spontaneously back and rhythm. She says it did not do that tonight so she took her second dose of metoprolol 100 mg twice a day early to see if that would get it to go back. Nothing has worked and she started feeling the pain and pressure so she called an ambulance. She does take aspirin daily but no blood thinners. She took her aspirin this morning but no more. EMS brought her in with IV. Patient describing her chest pain is more as pressure that does not radiate so EMS did not give her any more aspirin en route. She is not having any numbness tingling or pain in her jaw, shoulders or arm. She had a little nausea initially but no vomiting. She said she had no sweats or chills. No shortness of breath or cough. She quit smoking 25 years ago. She does not have diabetes. She's had 3 heart catheters by her inspector timers in [place] and was told she had perfectly good coronary arteries. Patient states she has not had a heart attack but she has had a stroke when she was in her 20s. Allergies and Home Medications Allergies Coded Allergies: lisinopril (Verified Allergy, Unknown, 10/19/17) azithromycin (Verified Adverse Reaction, Unknown, 10/19/17) Uncoded Allergies: CONTRAST (Allergy, Unknown, 10/19/17) Patient Home Medication List Home Medication List Reviewed: Yes Review of Systems Constitutional: No chills, No fever, No malaise EENTM: No Blurred Vision, No Double Vision Respiratory: Denies Cough, Denies Shortness of Air, Denies Wheezing Cardiovascular: See HPI, Chest Pain; Denies Edema; Irregular Heart Rate, Palpitations; Denies Syncope Gastrointestinal: Denies Abdomen Distended, Denies Abdominal Pain, Denies Constipated, Denies Diarrhea Genitourinary: Denies Burning, Denies Discharge Musculoskeletal: No back pain, No joint pain Skin: No pruritus, No rash Psychiatric/Neurological: Denies Headache, Denies Numbness Past Domchub-Cppptg-Mxjczh Hx Patient Social History Alcohol Use: Occasionally Uses Alcohol Beverage of Choice: Wine (none tonight) Recreational Drug Use: No Smoking Status: Former Smoker Type Used: Cigarettes Former Smoker, Quit: Oct 16, 1992 Physical Exam Vital Signs Vital Signs - First Documented 10/19/17 10/19/17 19:36 20:00 Temp 97.2 Pulse 133 Resp 16 B/P (MAP) 207/132 (157) Pulse Ox 99 O2 Delivery Room Air O2 Flow Rate 2.00 Capillary Refill : Height, Weight, BMI Height: '" Weight: lbs. oz. kg; BMI Method: General Appearance: WD/WN, Mild Distress HEENT: PERRL/EOMI, Normal ENT Inspection, Pharynx Normal, Moist Mucous Membranes Neck: Full Range of Motion, Normal Inspection Respiratory: Chest Non Tender, Lungs Clear, Normal Breath Sounds, No Accessory Muscle Use, No Respiratory Distress Cardiovascular: No Edema, No JVD, Normal Peripheral Pulses, Irregularly Irregular, Tachycardia Gastrointestinal: Normal Bowel Sounds, Non Tender, Soft Extremity: Normal Capillary Refill, Normal Inspection, No Pedal Edema Neurologic/Psychiatric: Alert, Oriented x3 Skin: Normal Color, Warm/Dry Progress/Results/Core Measures Results/Orders Lab Results Laboratory Tests Test 10/19/17 19:37 Range/Units White Blood Count 5.7 4.3-11.0 10^3/uL Red Blood Count 4.59 4.35-5.85 10^6/uL Hemoglobin 14.6 11.5-16.0 G/DL Hematocrit 43 35-52 % Mean Corpuscular Volume 93 80-99 FL Mean Corpuscular Hemoglobin 32 25-34 PG Mean Corpuscular Hemoglobin Concent 34 32-36 G/DL Red Cell Distribution Width 13.3 10.0-14.5 % Platelet Count 253 130-400 10^3/uL Mean Platelet Volume 8.8 7.4-10.4 FL Neutrophils (%) (Auto) 58 42-75 % Lymphocytes (%) (Auto) 29 12-44 % Monocytes (%) (Auto) 11 0-12 % Eosinophils (%) (Auto) 1 0-10 % Basophils (%) (Auto) 0 0-10 % Neutrophils # (Auto) 3.3 1.8-7.8 X 10^3 Lymphocytes # (Auto) 1.7 1.0-4.0 X 10^3 Monocytes # (Auto) 0.6 0.0-1.0 X 10^3 Eosinophils # (Auto) 0.1 0.0-0.3 10^3/uL Basophils # (Auto) 0.0 0.0-0.1 10^3/uL Prothrombin Time 14.5 12.2-14.7 SEC INR Comment 1.1 0.8-1.4 Activated Partial Thromboplast Time 28 24-35 SEC Sodium Level 141 135-145 MMOL/L Potassium Level 3.6 3.6-5.0 MMOL/L Chloride Level 106 98-107 MMOL/L Carbon Dioxide Level 26 21-32 MMOL/L Anion Gap 9 5-14 MMOL/L Blood Urea Nitrogen 19 H 7-18 MG/DL Creatinine 0.70 0.60-1.30 MG/DL Estimat Glomerular Filtration Rate > 60 BUN/Creatinine Ratio 27 Glucose Level 102 70-105 MG/DL Calcium Level 9.4 8.5-10.1 MG/DL Magnesium Level 2.1 1.8-2.4 MG/DL Total Bilirubin 0.6 0.1-1.0 MG/DL Aspartate Amino Transf (AST/SGOT) 17 5-34 U/L Alanine Aminotransferase (ALT/SGPT) 16 0-55 U/L Alkaline Phosphatase 77 40-136 U/L Myoglobin 22.7 10.0-92.0 NG/ML Troponin I < 0.30 <0.30 NG/ML Total Protein 7.2 6.4-8.2 GM/DL Albumin 4.6 H 3.2-4.5 GM/DL My Orders Orders - TRACIE SALAMANCA Aspirin Chewable Tablet (Baby Aspirin Ch (10/19/17 19:41) Cbc With Automated Diff (10/19/17 19:46) Magnesium (10/19/17 19:46) Chest 1 View, Ap/Pa Only (10/19/17 19:46) Ekg Tracing (10/19/17 19:46) Cardiac Profile 1 (7/18/18 19:46) Comprehensive Metabolic Panel (10/19/17 19:46) Myoglobin Serum (10/19/17 19:46) Protime With Inr (10/19/17 19:46) Partial Thromboplastin Time (10/19/17 19:46) O2 (10/19/17 19:46) Monitor-Rhythm Ecg Trace Only (10/19/17 19:46) Lipid Panel (10/20/17 06:00) Aspirin Chewable Tablet (Baby Aspirin Ch (10/19/17 20:00) Saline Lock/Iv-Start (10/19/17 19:46) Diltiazem Injection (Cardizem Injection) (10/19/17 20:00) D5w 100 Ml Ivpb (De... W/Diltiazem Injec (10/19/17 20:00) Medications Given in ED Current Medications Medications Dose Ordered Sig/Gale Route Start Time Stop Time Status Last Admin Dose Admin Aspirin 324 mg ONCE ONCE PO 10/19/17 20:00 10/19/17 20:02 DC 10/19/17 19:45 324 MG Vital Signs/I&O 10/19/17 10/19/17 19:36 20:00 Temp 97.2 Pulse 133 Resp 16 B/P (MAP) 207/132 (157) Pulse Ox 99 99 O2 Delivery Room Air Nasal Cannula O2 Flow Rate 2.00 Progress Progress Note : Time: 20:27 Progress Note On the initial EKG patient's heart was in atrial flutter with a rate of 130 and appeared to be rapid ventricular response. We're going to give her a dose of Cardizem and put her on a drip at about 5 minutes later she spontaneously cardioverted and her heart rate went down to the 50s to 60 range. I suspect that the metoprolol she took early began to take in. We held off giving any Cardizem. Her blood pressure was quite elevated when she arrived so we gave her some time to see what would happen after she converted in her blood pressure has improved significantly down to 187/96 without getting anything other than the aspirin. We obtained a second EKG which did not demonstrate any T-wave elevation or depression. Once we have our labs back we will consult with cardiology and see if she would be amenable to discharge from the ER tonight after a delta troponin or not. Initial ECG Impression Date: Oct 19, 2017 Initial ECG Impression Time: 19:40 Initial ECG Rate: 127 Initial ECG Rhythm: A Fib/Flutter Initial ECG Intervals: QT (501) Initial ECG Impression: Atrial Fibrillation w/RVR Initial ECG Comparisson: No Previous ECG Available Comment Atrial flutter with rapid ventricular response. EKG : EKG Time: 19:51 Rate: 58 Rhythm: Normal Sinus Intervals: Normal ECG Comparisson: Changed ECG Impression: Normal Comment Sinus rhythm without ST elevation or depression. Diagnostic Imaging Diagonstic Imaging: Xray Plain Films/CT/US/NM/MRI: chest (1v) Comments No acute cardiopulmonary process noted. Reviewed: Reviewed by Me Departure Communication (Admissions) Time/Spoke to Admitting Phy: 21:00 Discussed the case lab EKG imaging with Dr. Roy and she agrees with admission and will see the patient in the morning. She agrees with the plan laid out by Dr. Barros. Time/Spoke to Consulting Phy: 20:45 Discussed case lab EKG imaging and plan with Dr. Barros. He says but the patient on a cardiac diet and check a TSH and magnesium in the morning as well as an echocardiogram. L acquits 5 mg twice a day. He will see the patient in the morning. Impression Primary Impression: Atrial fibrillation with RVR Disposition: ADMITTED INPATIENT (obs) Condition: Improved Admissions Decision to Admit Reason: Admit from ER (General) Decision to Admit/Date: Oct 19, 2017 Time/Decision to Admit Time: 21:07 Departure-Patient Inst. Referrals: NO,LOCAL PHYSICIAN (PCP/Family) Primary Care Physician TRACIE SALAMANCA Oct 19, 2017 20:27
[2017-10-19 20:30] LABS: BUN/CREATININE RATIO 27; GFR ESTIMATED > 60
--- NOTE | 2017-10-19 20:49 | Diagnostic Imaging Report ---
Clinical indication: Patient with high blood pressure and A-fib. Exam: Portable chest x-ray upright view. Comparisons: Chest x-ray dated 05/18/2012. Findings: Lungs/pleura: Lungs are clear. There is no pneumothorax. There is no pleural effusion. Mediastinum: Unremarkable. Pulmonary vasculature: Unremarkable. Heart: Unremarkable. Bones/extrathoracic soft tissue: Unremarkable. Impression: There is no radiographic evidence of acute cardiopulmonary process. Dictated by: Dictated on workstation # [id number]
[2017-10-19] MEDS ORDERED: APIXABAN 5 MG (ELIQUIS) TABLET PO ONE (21:15)
--- OUTSIDE RECORDS SUMMARY | 2017-10-19 21:23 | XMS REPORT | Continuity of Care Document ---
Author Author [facility] Organization [facility] Address Unknown Phone Unavailable Allergies Active Description Code Type Severity Reaction Onset Reported/Identified Relationship to Patient Clinical Status Yes CONTRAVE [id number] Drug Allergy N/A hives Yes FORTEO [id number] Drug Allergy N/A Rash Yes LISINOPRIL 72587 Drug Allergy N /A Facial Redness /Flushed Yes TETANUS TOXOID ADSORBED [id number] Drug Allergy N/A Swollen T flaming red hive Yes ZITHROMAX [id number] Drug Allergy N/A rash Yes CONTRAST DYE [...] teriparatide teriparatide Drug Allergy Unknown RASH 01/14/2015 Yes azithromycin [id number] Drug Allergy Unknown N/A 10/19/2017 Yes CONTRAST CONTRAST Unknown N/A 10/19/2017 Yes lisinopril [id number] Drug Allergy Unknown N/A 10/19/2017 Medications Medication Packaging Start Date Stop Date [...] Refill(s) VITAMIN D 10/23/2014 10/23/2014 ORAL 800 ST947NU daily TRIAMTERENE-HCTZ 10/23/2014 10/23/2014 ORAL 37.5-25MG37.5-25MG POTASSIUM 10/23/2014 10/23/2014 ORAL 39WV64QF METOPROLOL TARTRATE 10/23/2014 10/23/2014 ORAL 17BC53KD twice daily CARTIA XT 10/23/2014 10/23/2014 ORAL 687ZL188DH daily ASPIRIN EC 10/23/2014 10/23/2014 ORAL 89IA52IA daily VITAMIN D 03/23/2016 03/23/2016 ORAL 4714OICM1418DDEM daily VALACYCLOVIR HCL 03/23/2016 03/23/2016 ORAL 1GM1GM every 12 hrs AMLODIPINE BESYLATE 03/23/2016 03/23/2016 ORAL 5MG5MG daily METRONIDAZOLE 05/25/2016 05/25/2016 ORAL 305LS819IH three times daily Problems Date Dx Coded Attending Type Code Diagnosis Diagnosed By 05/18/2012 Harlan Samuel MD Final 276.8 HYPOPOTASSEMIA 05/18/2012 Harlan Samuel MD Final 401.9 HYPERTENSION NOS 05/18/2012 Harlan Samuel MD Final 785.1 PALPITATIONS 10/03/2017 D18.01 Hemangioma of skin and subcutaneous tissue ADEN, JUAN J 10/03/2017 D22.5 Melanocytic nevi of trunk ADEN, JUAN Jonathan 10/03/2017 D22.71 Melanocytic nevi of right lower limb, including hip ADEN, JUAN Jonathan 10/03/2017 D22.72 Melanocytic nevi of left lower limb, including hip ADEN, JUAN J 10/03/2017 L57.0 Actinic keratosis ADEN, JUAN Jonathan 10/03/2017 L82.1 Other seborrheic keratosis ADEN, JUAN Jonathan 10/03/2017 Taqueria,Josemanuel Reason Z01.89 Encounter for other specified special examinations Procedures Code [place] [address] CHEST 2 VIEW ERENDIRA KENNEDY 07/04/2017 99986 Level III new patient office visit JUAN SAMANIEGO 10/03/2017 <section xmlns="urn:hl7-org:v3" xmlns:xsi="http://www.[employer].org/2001/ XMLSchema-instance"> <templateId root="2.16.840.1.184741.10.20.22.2.3" /> < templateId root="2.16.840.1.221948.10.20.22.2.3.1" /> <code codeSystemName= "LOINC" codeSystem="2.16.840.1.825529.6.1" code="81094-2" displayName="Results" /> <title>Results</title> <text> <table> <thead> <tr> [...] </tr> <tr> < colspan="10">CBC With Differential/Platelet - 03/23/ 11:20</th> </tr> <tr> < td>WBC</td> <td>5.1 x10E3/uL</td> [...] ( Abs)</td> <td>0.0 x10E3/uL</td> <td>0.0-0.1</td> </tr> <tr> <th colspan="10">Comp. Metabolic Panel (14) - 07/04/17 13: [...] (SGPT)</td> <td>15 IU/L</td> <td>0-32< /td> </tr> <tr> <th colspan="10">Sedimentation Rate- Westergren - 07/06/17 14:20</th> </tr> <tr> <td> Sedimentation [...] 2+ </td> <td>Negative</td> </tr> <tr> < td>Specific [place]</td> <td>1.023 NA</td> <td>1.003-1.030</td > </tr> <tr> <td>UA Collection type</td> <td>Cl Catch NA</td> <td /> </tr> <tr> <td>Urobilinogen </td> <td>Negative mg/dL</td> <td><1.0</td> </tr> <tr> < colspan="10">Urine Microscopic - 10/02/17 15:10</th> </tr> <tr> <td>Bacteria</td> <td>Moderate NA</td> <td /> </tr> <tr> <td>Epithelial Cells</td> <td>0 /HPF</td> <td /> </tr> <tr> <td>RBC , Urine</td> <td>20 /HPF</td> <td>0-2</td> </tr> <tr> <td>WBC, Urine</td> <td>20 /HPF</td> <td>0-4</ td> </tr> <tr> <th colspan="10">Complete blood count (CBC ) with automated white blood cell (WBC) differential - 10/19/17 19:37</th> </tr> <tr> <td>Blood leukocytes automated count (number/ volume)</td> <td>5.7 10*3/uL</td> <td>4.3-11.0</td> </ tr> <tr> <td>Blood erythrocytes automated count (number/volume)< /td> <td>4.59 10*6/uL</td> <td>4.35-5.85</td> </tr> <tr> <td>Venous blood hemoglobin measurement (mass/volume)</td> <td>14.6 g/dL</td> <td>11.5-16.0</td> </tr> <tr> <td>Blood hematocrit (volume fraction)</td> <td>43 %</td > <td>35-52</td> </tr> <tr> <td>Automated erythrocyte mean corpuscular volume</td> <td>93 [foz_us]</td> <td>80-99</td> </tr> <tr> <td>Automated erythrocyte mean corpuscular hemoglobin (mass per erythrocyte)</td> <td>32 pg</td> <td>25-34</td> </tr> <tr> <td>Automated erythrocyte mean corpuscular hemoglobin concentration measurement (mass/volume)</td> <td>34 g/dL</td> <td>32-36</td> </tr> <tr> < td>Automated erythrocyte distribution width ratio</td> <td>13.3 %</ td> <td>10.0-14.5</td> </tr> <tr> <td>Automated blood platelet count (count/volume)</td> <td>253 10*3/uL</td> <td>130-400</td> </tr> <tr> <td>Automated blood platelet mean volume measurement</td> <td>8.8 [foz_us]</td> <td>7.4- 10.4</td> </tr> <tr> <td>Automated blood neutrophils/100 leukocytes</td> <td>58 %</td> <td>42-75</td> </tr> <tr> <td>Automated blood lymphocytes/100 leukocytes</td> <td>29 %</td> <td>12-44</td> </tr> <tr> <td>Blood monocytes/100 leukocytes</td> <td>11 %</td> <td> 0-12</td> </tr> <tr> <td>Automated blood eosinophils/100 leukocytes</td> <td>1 %</td> <td>0-10</td> </tr> <tr> <td>Automated blood basophils/100 leukocytes</td> < td>0 %</td> <td>0-10</td> </tr> <tr> <td> Blood neutrophils automated count (number/volume)</td> <td>3.3 10*3</td > <td>1.8-7.8</td> </tr> <tr> <td>Blood lymphocytes automated count (number/volume)</td> <td>1.7 10*3</td> <td>1.0-4.0</td> </tr> <tr> <td>Blood monocytes automated count (number/volume)</td> <td>0.6 10*3</td> <td>0.0 -1.0</td> </tr> <tr> <td>Automated eosinophil count</td> <td>0.1 10*3/uL</td> <td>0.0-0.3</td> </tr> <tr > <td>Automated blood basophil count (count/volume)</td> <td> 0.0 10*3/uL</td> <td>0.0-0.1</td> </tr> <tr> < th colspan="10">PT panel in platelet poor plasma by coagulation assay - 19:37</th> </tr> <tr> <td>Prothrombin time (PT) in platelet poor plasma by coagulation assay</td> <td>14.5 s</td> <td>12.2-14.7</td> </tr> <tr> <td>INR in platelet poor plasma or blood by coagulation assay</td> <td>1.1 </td> <td> 0.8-1.4</td> </tr> <tr> <th colspan="10">Activated partial thromboplastin time (aPTT) in platelet poor plasma bycoagulation assay - 10/19/17 19:37</th> </tr> <tr> <td>Activated partial thromboplastin time (aPTT) in platelet poor plasma bycoagulation assay</td> <td>28 s</td> <td>24-35</td> </tr> <tr> < th colspan="10">Comprehensive metabolic panel - 10/19/17 19:37</th> </tr > <tr> <td>Serum or plasma sodium measurement (moles/volume)</td > <td>141 mmol/L</td> <td>135-145</td> </tr> <tr > <td>Serum or plasma potassium measurement (moles/volume)</td> <td>3.6 mmol/L</td> <td>3.6-5.0</td> </tr> <tr> <td>Serum or plasma chloride measurement (moles/volume)</td> <td> 106 mmol/L</td> <td>98-107</td> </tr> <tr> <td> Carbon dioxide</td> <td>26 mmol/L</td> <td>21-32</td> < /tr> <tr> <td>Serum or plasma anion gap determination (moles/ volume)</td> <td>9 mmol/L</td> <td>5-14</td> </tr> <tr> <td>Serum or plasma urea nitrogen measurement (mass/volume)</ td> <td>19 mg/dL</td> <td>7-18</td> </tr> <tr> <td>Serum or plasma creatinine measurement (mass/volume)</td> <td>0.70 mg/dL</td> <td>0.60-1.30</td> </tr> <tr> <td>Serum or plasma urea nitrogen/creatinine mass ratio</td> <td>27 </td> <td>NRG</td> </tr> <tr> <td>Serum or plasma creatinine measurement with calculation of estimated glomerular filtration rate</td> <td>> </td> <td>NRG</td> </tr> <tr> <td>Serum or plasma glucose measurement (mass/volume)</td > <td>102 mg/dL</td> <td>70-105</td> </tr> <tr> <td>Serum or plasma calcium measurement (mass/volume)</td> < td>9.4 mg/dL</td> <td>8.5-10.1</td> </tr> <tr> < td>Serum or plasma total bilirubin measurement (mass/volume)</td> <td> 0.6 mg/dL</td> <td>0.1-1.0</td> </tr> <tr> <td> Serum or plasma alkaline phosphatase measurement (enzymatic activity/volume)</td > <td>77 U/L</td> <td>40-136</td> </tr> <tr> <td>Serum or plasma aspartate aminotransferase measurement (enzymatic activity/volume)</td> <td>17 U/L</td> <td>5-34</td> </ tr> <tr> <td>Serum or plasma alanine aminotransferase measurement (enzymatic activity/volume)</td> <td>16 U/L</td> < td>0-55</td> </tr> <tr> <td>Serum or plasma protein measurement (mass/volume)</td> <td>7.2 g/dL</td> <td>6.4-8.2</ td> </tr> <tr> <td>Serum or plasma albumin measurement ( mass/volume)</td> <td>4.6 g/dL</td> <td>3.2-4.5</td> </ tr> <tr> <th colspan="10">Magnesium - 10/19/17 19:37</th> </tr> <tr> <td>Magnesium</td> <td>2.1 mg/dL</td> <td>1.8-2.4</td> </tr> <tr> <th colspan="10">Serum or plasma troponin i.cardiac measurement (mass/volume) - 10/19/17 19:37</th> </tr> <tr> <td>Serum or plasma troponin i.cardiac measurement (mass/volume)</td> <td>< ng/mL</td> <td>< 0.30</td> </tr> <tr> <th colspan="10">Myoglobin, serum - 10/19/ 19:37</th> </tr> <tr> <td>Myoglobin, serum</td> <td>22.7 ng/mL</td> <td>10.0-92.0</td> </tr> </ tbody> </table> </text> <entry> <organizer moodCode="EVN" classCode= "BATTERY"> <templateId root="216.840.1.223592.10.20.22.4.1" /> <id nullFlavor="NA" /> <code codeSystem="local" code="HDLPRO" displayName= "LIPID PANEL" /> <statusCode code="completed" /> <component> < observation moodCode="EVN" classCode="OBS"> <templateId root= "16.840.1.555996.10.20.22.4.2" /> <id nullFlavor="NA" /> < code codeSystem="local" code="CHOL/HDL" displayName="CHOLESTEROL/HDL RATIO" /> <statusCode code="completed" /> <effectiveTime value= "983909961676" /> <value unit="" xsi:type="PQ" value="3.3" /> <referenceRange> <observationRange> <text> < 5.0</ text> </observationRange> </referenceRange> </ observation> </component> <component> <observation moodCode= "EVN" classCode="OBS"> <templateId root="16.840.1.627597.10.20.22.4.2 " /> <id nullFlavor="NA" /> <code codeSystem="local" code= "LDLX" displayName="LDL CHOLESTEROL" /> <statusCode code="completed" / > <effectiveTime value="727715321663" /> <value unit="mg/dL" xsi:type="PQ" value="140" /> <interpretationCode codeSystem="local" code="*" /> <referenceRange> <observationRange> <text>< 100</text> </observationRange> </referenceRange > </observation> </component> <component> <observation moodCode="EVN" classCode="OBS"> <templateId root= "05.20.840.1.024104.10.20.22.4.2" /> <id nullFlavor="NA" /> < code codeSystem="local" code="VLDL" displayName="VLDL CHOLESTEROL" /> < statusCode code="completed" /> <effectiveTime value="541411423499" /> <value unit="mg/dL" xsi:type="PQ" value="9" /> <referenceRange > <observationRange> <text>< 30</text> </ observationRange> </referenceRange> </observation> </ component> <component> <observation moodCode="EVN" classCode="OBS"> <templateId root="05.20.840.1.702396.10.20.22.4.2" /> <id nullFlavor="NA" /> <code codeSystem="local" code="TRIG" displayName= "TRIGLYCERIDES" /> <statusCode code="completed" /> < effectiveTime value="515630110005" /> <value unit="mg/dL" xsi:type="PQ " value="45" /> <referenceRange> <observationRange> <text>< 150</text> </observationRange> </ referenceRange> </observation> </component> <component> <observation moodCode="EVN" classCode="OBS"> <templateId root= "05.20.840.1.973677.104.2" /> <id nullFlavor="NA" /> < code codeSystem="local" code="CHOL" displayName="CHOLESTEROL" /> < statusCode code="completed" /> <effectiveTime value="422425476281" /> <value unit="mg/dL" xsi:type="PQ" value="213" /> < interpretationCode codeSystem="local" code="*" /> <referenceRange> <observationRange> <text>< 200</text> </ observationRange> </referenceRange> </observation> </ component> <component> <observation moodCode="EVN" classCode="OBS"> <templateId root="2.16.840.1.226774.01.21.224.2" /> <id nullFlavor="NA" /> <code codeSystem="local" code="HDL" displayName=" HDL CHOLESTEROL" /> <statusCode code="completed" /> < effectiveTime value="781773732313" /> <value unit="mg/dL" xsi:type="PQ " value="64" /> <referenceRange> <observationRange> <text>> 39</text> </observationRange> </ referenceRange> </observation> </component> <component> <observation moodCode="EVN" classCode="OBS"> <templateId root= "2.16.840.1.471860.10.4.2" /> <id nullFlavor="NA" /> < code codeSystem="local" code="MB" displayName="Microbiology" /> < statusCode code="completed" /> <effectiveTime value="862966121968" /> <value unit="" xsi:type="PQ" value="" /> <referenceRange> <observationRange> <text /> </observationRange> </referenceRange> </observation> </component> </ organizer> </entry> <entry> <organizer moodCode="EVN" classCode="BATTERY"> <templateId root="05.20.840.1.681121.10...4.1" /> <id nullFlavor= "NA" /> <code codeSystem="local" code="CBC" displayName="CBC" /> < statusCode code="completed" /> <component> <observation moodCode= "EVN" classCode="OBS"> <templateId root="840.1.022138.01.21.22.4.2 " /> <id nullFlavor="NA" /> <code codeSystem="local" code="MCH " displayName="MEAN CELL HGB" /> <statusCode code="completed" /> <effectiveTime value="930954385950" /> <value unit="pg" xsi:type= "PQ" value="31.2" /> <referenceRange> <observationRange> <text>27.0-33.0</text> </observationRange> </ referenceRange> </observation> </component> <component> <observation moodCode="EVN" classCode="OBS"> <templateId root= "840.1.418842.01.21.22.4.2" /> <id nullFlavor="NA" /> < code codeSystem="local" code="MCHC" displayName="MEAN CELL HGB CONCENTRATION" / > <statusCode code="completed" /> <effectiveTime value= "036660695160" /> <value unit="g/dL" xsi:type="PQ" value="34.1" /> <referenceRange> <observationRange> <text>32.0- 37.0</text> </observationRange> </referenceRange> </ observation> </component> <component> <observation moodCode= "EVN" classCode="OBS"> <templateId root="05.20.840.1.837623.01.21.224.2 " /> <id nullFlavor="NA" /> <code codeSystem="local" code="MCV " displayName="MEAN CELL VOLUME" /> <statusCode code="completed" /> <effectiveTime value="" /> <value unit="fl" xsi:type ="PQ" value="91.5" /> <referenceRange> <observationRange> <text>80.0-100.0</text> </observationRange> </ referenceRange> </observation> </component> <component> <observation moodCode="EVN" classCode="OBS"> <templateId root= "2.16.840.1.316566.01.21.224.2" /> <id nullFlavor="NA" /> < code codeSystem="local" code="RBC" displayName="RED BLOOD CELL" /> < statusCode code="completed" /> <effectiveTime value="" /> <value unit="m/cumm" xsi:type="PQ" value="5.04" /> < referenceRange> <observationRange> <text>4.00-6.00</text > </observationRange> </referenceRange> </observation > </component> <component> <observation moodCode="EVN" classCode="OBS"> <templateId root="2.16.840.1.777380.01.21.22.4.2" /> <id nullFlavor="NA" /> <code codeSystem="local" code="RDW" displayName="RED CELL DISTRIBUTION WIDTH" /> <statusCode code= "completed" /> <effectiveTime value="" /> <value unit="%" xsi:type="PQ" value="12.4" /> <referenceRange> <observationRange> <text>11.0-15.6</text> </ observationRange> </referenceRange> </observation> </ component> <component> <observation moodCode="EVN" classCode="OBS"> <templateId root="216.840.1.580807.10..22.4.2" /> <id nullFlavor="NA" /> <code codeSystem="local" code="WBC" displayName= "WHITE BLOOD CELL" /> <statusCode code="completed" /> < effectiveTime value="" /> <value unit="k/cumm" xsi:type="PQ " value="9.3" /> <referenceRange> <observationRange> <text>5.0-10.0</text> </observationRange> </ referenceRange> </observation> </component> <component> <observation moodCode="EVN" classCode="OBS"> <templateId root= "216.840.1.822418.01.21.22.4.2" /> <id nullFlavor="NA" /> < code codeSystem="local" code="HGBT" displayName="HEMOGLOBIN" /> < statusCode code="completed" /> <effectiveTime value="" /> <value unit="gm/dL" xsi:type="PQ" value="15.7" /> < referenceRange> <observationRange> <text>12.0-16.0</text > </observationRange> </referenceRange> </observation > </component> <component> <observation moodCode="EVN" classCode="OBS"> <templateId root="16.840.1.362253.10.20.22.4.2" /> <id nullFlavor="NA" /> <code codeSystem="local" code="HCTT" displayName="HEMATOCRIT" /> <statusCode code="completed" /> < effectiveTime value="" /> <value unit="%" xsi:type="PQ " value="46.1" /> <referenceRange> <observationRange> <text>37.0-47.0</text> </observationRange> </ referenceRange> </observation> </component> <component> <observation moodCode="EVN" classCode="OBS"> <templateId root= "216.840.1.659458.10..4.2" /> <id nullFlavor="NA" /> < code codeSystem="local" code="PLT" displayName="PLATELET COUNT" /> < statusCode code="completed" /> <effectiveTime value="840051725634" /> <value unit="k/cumm" xsi:type="PQ" value="318" /> < referenceRange> <observationRange> <text>150-400</text> </observationRange> </referenceRange> </observation > </component> <component> <observation moodCode="EVN" classCode="OBS"> <templateId root="05.20.840.1.512353.10.4.2" /> <id nullFlavor="NA" /> <code codeSystem="local" code="MB" displayName="Microbiology" /> <statusCode code="completed" /> <effectiveTime value="005412697041" /> <value unit="" xsi:type="PQ" value="" /> <referenceRange> <observationRange> <text /> </observationRange> </referenceRange> </ observation> </component> </organizer> </entry> <entry> <organizer moodCode="EVN" classCode="BATTERY"> <templateId root= "05.20.840.1.219628.10.4.1" /> <id nullFlavor="NA" /> <code codeSystem="local" code="METABC" displayName="METABOLIC PANEL, COMPREHN" /> <statusCode code="completed" /> <component> <observation moodCode= "EVN" classCode="OBS"> <templateId root="05.20.840.1.373479.10..22.4.2 " /> <id nullFlavor="NA" /> <code codeSystem="local" code="K" displayName="POTASSIUM" /> <statusCode code="completed" /> < effectiveTime value="" /> <value xsi:type="ST" value="<pre> <b>METABOLIC PANEL, COMPREHN</b> 1393.64649148439978.9> [id number]< /pre>" /> <referenceRange> <observationRange> < text>3.5-5.3</text> </observationRange> </referenceRange> </observation> </component> <component> <observation moodCode="EVN" classCode="OBS"> <templateId root= "840.1.433630....4.2" /> <id nullFlavor="NA" /> < code codeSystem="local" code="eGFR" displayName="EST GFR (MDRD)" /> < statusCode code="completed" /> <effectiveTime value="" /> <value xsi:type="ST" value="<pre><b>METABOLIC PANEL, COMPREHN</b> 1393.78710639237415.9> 8787411.05.28.50.08545587</pre>" /> < referenceRange> <observationRange> <text>> 59</text> </observationRange> </referenceRange> </observation > </component> <component> <observation moodCode="EVN" classCode="OBS"> <templateId root="05.20.840.1.848362.10.20.22.4.2" /> <id nullFlavor="NA" /> <code codeSystem="local" code="GAP" displayName="ANION GAP" /> <statusCode code="completed" /> < effectiveTime value="" /> <value xsi:type="ST" value="<pre> <b>METABOLIC PANEL, COMPREHN</b> 1393.88342500844772.9> [id number]< /pre>" /> <referenceRange> <observationRange> < text>5-15</text> </observationRange> </referenceRange> </observation> </component> <component> <observation moodCode="EVN" classCode="OBS"> <templateId root= "2.16.840.1.880897.10.20.22.4.2" /> <id nullFlavor="NA" /> < code codeSystem="local" code="eCrCl" displayName="EST CrCl (CG)" /> < statusCode code="completed" /> <effectiveTime value="" /> <value xsi:type="ST" value="<pre><b>METABOLIC PANEL, COMPREHN</b> 1393.13770403744902.9> [id number]</pre>" /> < interpretationCode codeSystem="local" code="*" /> <referenceRange> <observationRange> <text>> 59</text> </ observationRange> </referenceRange> </observation> </ component> <component> <observation moodCode="EVN" classCode="OBS"> <templateId root="216.840.1.942945.10..22.4.2" /> <id nullFlavor="NA" /> <code codeSystem="local" code="GLU" displayName= "GLUCOSE" /> <statusCode code="completed" /> <effectiveTime value="" /> <value xsi:type="ST" value="<pre><b>METABOLIC PANEL, COMPREHN</b> 1393.09057957841898.9> 66293.04..[id number]</pre>" /> <interpretationCode codeSystem="local" code="*" /> < referenceRange> <observationRange> <text>70-99</text> </observationRange> </referenceRange> </observation> </component> <component> <observation moodCode="EVN" classCode= "OBS"> <templateId root="2.16.840.1.464457.10..22.4.2" /> < id nullFlavor="NA" /> <code codeSystem="local" code="CA" displayName= "CALCIUM" /> <statusCode code="completed" /> <effectiveTime value="" /> <value xsi:type="ST" value="<pre><b>METABOLIC PANEL, COMPREHN</b> 1393.43577205886741.9> [id number]</pre>" /> <referenceRange> <observationRange> <text>8.5- 10.1</text> </observationRange> </referenceRange> </ observation> </component> <component> <observation moodCode= "EVN" classCode="OBS"> <templateId root="2.16.840.1.714059.10..22.4.2 " /> <id nullFlavor="NA" /> <code codeSystem="local" code="BUN " displayName="BLOOD UREA NITROGEN" /> <statusCode code="completed" /> <effectiveTime value="" /> <value xsi:type="ST" value="<pre><b>METABOLIC PANEL, COMPREHN</b> 1393.44180893690563.9> [id number]</pre>" /> <referenceRange> < observationRange> <text>7-20</text> </observationRange> </referenceRange> </observation> </component> < component> <observation moodCode="EVN" classCode="OBS"> < templateId root="05.20.840.1.550942.10..22.4.2" /> <id nullFlavor="NA " /> <code codeSystem="local" code="CREAT" displayName="CREATININE" /> <statusCode code="completed" /> <effectiveTime value= "" /> <value xsi:type="ST" value="<pre><b>METABOLIC PANEL, COMPREHN</b> 1393.45912708476642.9> 6009511.05.28.50.24805190</pre>" /> < referenceRange> <observationRange> <text>0.6-1.0</text> </observationRange> </referenceRange> </observation > </component> <component> <observation moodCode="EVN" classCode="OBS"> <templateId root="05.20.840.1.572422.10...4.2" /> <id nullFlavor="NA" /> <code codeSystem="local" code="NA" displayName="SODIUM" /> <statusCode code="completed" /> < effectiveTime value="" /> <value xsi:type="ST" value="<pre> <b>METABOLIC PANEL, COMPREHN</b> 1393.42236928690649.9> 5072311.05.28.50.43648905< /pre>" /> <referenceRange> <observationRange> < text>135-148</text> </observationRange> </referenceRange> </observation> </component> <component> <observation moodCode="EVN" classCode="OBS"> <templateId root= "05.20.840.1.557278.10.20.22.4.2" /> <id nullFlavor="NA" /> < code codeSystem="local" code="CL" displayName="CHLORIDE" /> < statusCode code="completed" /> <effectiveTime value="" /> <value xsi:type="ST" value="<pre><b>METABOLIC PANEL, COMPREHN</b> 1393.21991196599680.9> [id number]</pre>" /> < referenceRange> <observationRange> <text>98-110</text> </observationRange> </referenceRange> </observation> </component> <component> <observation moodCode="EVN" classCode ="OBS"> <templateId root="[id number]..22.4.2" /> < id nullFlavor="NA" /> <code codeSystem="local" code="AST" displayName= "AST/SGOT" /> <statusCode code="completed" /> <effectiveTime value="" /> <value xsi:type="ST" value="<pre><b>METABOLIC PANEL, COMPREHN</b> 1393.38277282144002.9> [id number]</pre>" /> <referenceRange> <observationRange> <text>10-37</ text> </observationRange> </referenceRange> </ observation> </component> <component> <observation moodCode= "EVN" classCode="OBS"> <templateId root="2.16.840.1.421979.10..22.4.2 " /> <id nullFlavor="NA" /> <code codeSystem="local" code="ALT " displayName="ALT/SGPT" /> <statusCode code="completed" /> < effectiveTime value="" /> <value xsi:type="ST" value="<pre> <b>METABOLIC PANEL, COMPREHN</b> 1393.94102676197416.9> [id number]< /pre>" /> <referenceRange> <observationRange> < text>< 66</text> </observationRange> </referenceRange> </observation> </component> <component> <observation moodCode="EVN" classCode="OBS"> <templateId root= "2.16.840.1.650856.10..22.4.2" /> <id nullFlavor="NA" /> < code codeSystem="local" code="CO2" displayName="CARBON DIOXIDE" /> < statusCode code="completed" /> <effectiveTime value="" /> <value xsi:type="ST" value="<pre><b>METABOLIC PANEL, COMPREHN</b> 1393.86506464089179.9> [id number]...[id number]</pre>" /> < referenceRange> <observationRange> <text>21-32</text> </observationRange> </referenceRange> </observation> </component> <component> <observation moodCode="EVN" classCode= "OBS"> <templateId root="2.16.840.1.046444.10..22.4.2" /> < id nullFlavor="NA" /> <code codeSystem="local" code="TP" displayName= "TOTAL PROTEIN" /> <statusCode code="completed" /> < effectiveTime value="" /> <value xsi:type="ST" value="<pre> <b>METABOLIC PANEL, COMPREHN</b> 1393.20336119934687.9> [id number]< /pre>" /> <referenceRange> <observationRange> < text>6.4-8.2</text> </observationRange> </referenceRange> </observation> </component> <component> <observation moodCode="EVN" classCode="OBS"> <templateId root= "05.20.840.1.985889.10..22.4.2" /> <id nullFlavor="NA" /> < code codeSystem="local" code="ALB" displayName="ALBUMIN" /> < statusCode code="completed" /> <effectiveTime value="" /> <value xsi:type="ST" value="<pre><b>METABOLIC PANEL, COMPREHN</b> 1393.35068692855060.9> [id number]</pre>" /> < referenceRange> <observationRange> <text>3.4-5.0</text> </observationRange> </referenceRange> </observation > </component> <component> <observation moodCode="EVN" classCode="OBS"> <templateId root="840.1.928231.01.21.22.4.2" /> <id nullFlavor="NA" /> <code codeSystem="local" code="BILTOT" displayName="BILI TOTAL" /> <statusCode code="completed" /> < effectiveTime value="" /> <value xsi:type="ST" value="<pre> <b>METABOLIC PANEL, COMPREHN</b> 1393.55695726148165.9> [id number]< /pre>" /> <referenceRange> <observationRange> < text>0.0-1.0</text> </observationRange> </referenceRange> </observation> </component> <component> <observation moodCode="EVN" classCode="OBS"> <templateId root= "05.20.840.1.061897.10.20.22.4.2" /> <id nullFlavor="NA" /> < code codeSystem="local" code="ALKP" displayName="ALKALINE PHOSPHATASE TOTAL" /> <statusCode code="completed" /> <effectiveTime value= "[id number]" /> <value xsi:type="ST" value="<pre><b>METABOLIC PANEL, COMPREHN</b> 1393.41801388579165.9> [id number]</pre>" /> < interpretationCode codeSystem="local" code="*" /> <referenceRange> <observationRange> <text>45-117</text> </ observationRange> </referenceRange> </observation> </ component> <component> <observation moodCode="EVN" classCode="OBS"> <templateId root="216.840.1.188056.10..22.4.2" /> <id nullFlavor="NA" /> <code codeSystem="local" code="MB" displayName= "Microbiology" /> <statusCode code="completed" /> < effectiveTime value="[id number]" /> <value xsi:type="ST" value="<pre> <b>METABOLIC PANEL, COMPREHN</b> 1393.74893765739275.9> [id number]< /pre>" /> <referenceRange> <observationRange> < text /> </observationRange> </referenceRange> </ observation> </component> </organizer> </entry> <entry> <organizer moodCode="EVN" classCode="BATTERY"> <templateId root= "216.840.1.729223.10..22.4.1" /> <id nullFlavor="NA" /> <code codeSystem="local" code="787636" displayName="CBC With Differential/Platelet" / > <statusCode code="completed" /> <component> <observation moodCode="EVN" classCode="OBS"> <templateId root= "216.840.1.044595.01.21.22.4.2" /> <id nullFlavor="NA" /> < code codeSystem="local" code="627636" displayName="WBC" /> <statusCode code="completed" /> <effectiveTime value="" /> < value unit="x10E3/uL" xsi:type="PQ" value="5.1" /> <referenceRange> <observationRange> <text>3.4-10.8</text> </ observationRange> </referenceRange> </observation> </ component> <component> <observation moodCode="EVN" classCode="OBS"> <templateId root="2.16.840.1.713507.01.21.22.4.2" /> <id nullFlavor="NA" /> <code codeSystem="local" code="319227" displayName= "RBC" /> <statusCode code="completed" /> <effectiveTime value= "" /> <value unit="x10E6/uL" xsi:type="PQ" value="4.44" /> <referenceRange> <observationRange> <text>3.77 -5.28</text> </observationRange> </referenceRange> </ observation> </component> <component> <observation moodCode= "EVN" classCode="OBS"> <templateId root="2.16.840.1.128163.01.21.22.4.2 " /> <id nullFlavor="NA" /> <code codeSystem="local" code= "042581" displayName="Hemoglobin" /> <statusCode code="completed" /> <effectiveTime value="" /> <value unit="g/dL" xsi: type="PQ" value="13.7" /> <referenceRange> <observationRange > <text>11.1-15.9</text> </observationRange> </ referenceRange> </observation> </component> <component> <observation moodCode="EVN" classCode="OBS"> <templateId root= "16.840.1.139061.10.22.4.2" /> <id nullFlavor="NA" /> < code codeSystem="local" code="902239" displayName="Hematocrit" /> < statusCode code="completed" /> <effectiveTime value="" /> <value unit="%" xsi:type="PQ" value="39.8" /> < referenceRange> <observationRange> <text>34.0-46.6</text > </observationRange> </referenceRange> </observation > </component> <component> <observation moodCode="EVN" classCode="OBS"> <templateId root="05.20.840.1.678924.10.4.2" /> <id nullFlavor="NA" /> <code codeSystem="local" code="327036" displayName="MCV" /> <statusCode code="completed" /> < effectiveTime value="" /> <value unit="fL" xsi:type="PQ" value="90" /> <referenceRange> <observationRange> <text>79-97</text> </observationRange> </referenceRange > </observation> </component> <component> <observation moodCode="EVN" classCode="OBS"> <templateId root= "05.20.840.1.858116.10.22.4.2" /> <id nullFlavor="NA" /> < code codeSystem="local" code="247096" displayName="MCH" /> <statusCode code="completed" /> <effectiveTime value="" /> < value unit="pg" xsi:type="PQ" value="30.9" /> <referenceRange> <observationRange> <text>26.6-33.0</text> </ observationRange> </referenceRange> </observation> </ component> <component> <observation moodCode="EVN" classCode="OBS"> <templateId root="216.840.1.331641.10.20.22.4.2" /> <id nullFlavor="NA" /> <code codeSystem="local" code="066098" displayName= "MCHC" /> <statusCode code="completed" /> <effectiveTime value ="[id number]" /> <value unit="g/dL" xsi:type="PQ" value="34.4" /> <referenceRange> <observationRange> <text>31.5- 35.7</text> </observationRange> </referenceRange> </ observation> </component> <component> <observation moodCode= "EVN" classCode="OBS"> <templateId root="05.20.840.1.832095.10.22.4.2 " /> <id nullFlavor="NA" /> <code codeSystem="local" code= "156628" displayName="RDW" /> <statusCode code="completed" /> <effectiveTime value="[id number]" /> <value unit="%" xsi:type="PQ " value="12.3" /> <referenceRange> <observationRange> <text>12.3-15.4</text> </observationRange> </ referenceRange> </observation> </component> <component> <observation moodCode="EVN" classCode="OBS"> <templateId root= "05.20.840.1.270212.10.2022.4.2" /> <id nullFlavor="NA" /> < code codeSystem="local" code="246066" displayName="Platelets" /> < statusCode code="completed" /> <effectiveTime value="" /> <value unit="x10E3/uL" xsi:type="PQ" value="251" /> < referenceRange> <observationRange> <text>150-379</text> </observationRange> </referenceRange> </observation > </component> <component> <observation moodCode="EVN" classCode="OBS"> <templateId root="216.840.1.594717.10.2022.4.2" /> <id nullFlavor="NA" /> <code codeSystem="local" code="646608" displayName="Neutrophils" /> <statusCode code="completed" /> < effectiveTime value="" /> <value unit="%" xsi:type="PQ " value="59" /> <referenceRange> <observationRange> <text /> </observationRange> </referenceRange> </observation> </component> <component> <observation moodCode= "EVN" classCode="OBS"> <templateId root="216.840.1.491440.10.22.4.2 " /> <id nullFlavor="NA" /> <code codeSystem="local" code= "712466" displayName="Lymphs" /> <statusCode code="completed" /> <effectiveTime value="" /> <value unit="%" xsi:type ="PQ" value="28" /> <referenceRange> <observationRange> <text /> </observationRange> </referenceRange> </observation> </component> <component> <observation moodCode="EVN" classCode="OBS"> <templateId root= "16.840.1.589484.10.2022.4.2" /> <id nullFlavor="NA" /> < code codeSystem="local" code="967571" displayName="Monocytes" /> < statusCode code="completed" /> <effectiveTime value="" /> <value unit="%" xsi:type="PQ" value="12" /> < referenceRange> <observationRange> <text /> < /observationRange> </referenceRange> </observation> </ component> <component> <observation moodCode="EVN" classCode="OBS"> <templateId root="16.840.1.880606.1022.4.2" /> <id nullFlavor="NA" /> <code codeSystem="local" code="369064" displayName= "Eos" /> <statusCode code="completed" /> <effectiveTime value= "" /> <value unit="%" xsi:type="PQ" value="1" /> <referenceRange> <observationRange> <text /> </observationRange> </referenceRange> </observation> < /component> <component> <observation moodCode="EVN" classCode="OBS" > <templateId root="05.20.840.1.406739.1022.4.2" /> <id nullFlavor="NA" /> <code codeSystem="local" code="413050" displayName= "Basos" /> <statusCode code="completed" /> <effectiveTime value="" /> <value unit="%" xsi:type="PQ" value="0" /> <referenceRange> <observationRange> <text /> </observationRange> </referenceRange> </observation> </component> <component> <observation moodCode="EVN" classCode ="OBS"> <templateId root="05.20.840.1.594553.102022.4.2" /> < id nullFlavor="NA" /> <code codeSystem="local" code="974946" displayName="Neutrophils (Absolute)" /> <statusCode code="completed" / > <effectiveTime value="" /> <value unit="x10E3/uL " xsi:type="PQ" value="3.0" /> <referenceRange> < observationRange> <text>1.4-7.0</text> </ observationRange> </referenceRange> </observation> </ component> <component> <observation moodCode="EVN" classCode="OBS"> <templateId root="2.16.840.1.431752.10.20.22.4.2" /> <id nullFlavor="NA" /> <code codeSystem="local" code="505897" displayName= "Lymphs (Absolute)" /> <statusCode code="completed" /> < effectiveTime value="" /> <value unit="x10E3/uL" xsi:type= "PQ" value="1.4" /> <referenceRange> <observationRange> <text>0.7-3.1</text> </observationRange> </ referenceRange> </observation> </component> <component> <observation moodCode="EVN" classCode="OBS"> <templateId root= "2.16.840.1.034568.10.20.22.4.2" /> <id nullFlavor="NA" /> < code codeSystem="local" code="050045" displayName="Monocytes(Absolute)" /> <statusCode code="completed" /> <effectiveTime value=" " /> <value unit="x10E3/uL" xsi:type="PQ" value="0.6" /> < referenceRange> <observationRange> <text>0.1-0.9</text> </observationRange> </referenceRange> </observation > </component> <component> <observation moodCode="EVN" classCode="OBS"> <templateId root="05.20.840.1.426220.10.22.4.2" /> <id nullFlavor="NA" /> <code codeSystem="local" code="540164" displayName="Eos (Absolute)" /> <statusCode code="completed" /> <effectiveTime value="[id number]" /> <value unit="x10E3/uL" xsi: type="PQ" value="0.1" /> <referenceRange> <observationRange > <text>0.0-0.4</text> </observationRange> </ referenceRange> </observation> </component> <component> <observation moodCode="EVN" classCode="OBS"> <templateId root= "840.1.715233.01.21.22.4.2" /> <id nullFlavor="NA" /> < code codeSystem="local" code="558690" displayName="Baso (Absolute)" /> <statusCode code="completed" /> <effectiveTime value="" /> <value unit="x10E3/uL" xsi:type="PQ" value="0.0" /> < referenceRange> <observationRange> <text>0.0-0.2</text> </observationRange> </referenceRange> </observation > </component> </organizer> </entry> <entry> <organizer moodCode= "EVN" classCode="BATTERY"> <templateId root="05.20.840.1.457877.10..4.1 " /> <id nullFlavor="NA" /> <code codeSystem="local" code="398751" displayName="Comp. Metabolic Panel (14)" /> <statusCode code="completed" / > <component> <observation moodCode="EVN" classCode="OBS"> <templateId root="840.1.865227...4.2" /> <id nullFlavor="NA " /> <code codeSystem="local" code="391535" displayName="Glucose, Serum " /> <statusCode code="completed" /> <effectiveTime value= "" /> <value unit="mg/dL" xsi:type="PQ" value="93" /> <referenceRange> <observationRange> <text>65-99</ text> </observationRange> </referenceRange> </ observation> </component> <component> <observation moodCode= "EVN" classCode="OBS"> <templateId root="216.840.1.205587.01.21.22.4.2 " /> <id nullFlavor="NA" /> <code codeSystem="local" code= "831061" displayName="BUN" /> <statusCode code="completed" /> <effectiveTime value="" /> <value unit="mg/dL" xsi:type="PQ " value="9" /> <referenceRange> <observationRange> <text>8-27</text> </observationRange> </referenceRange > </observation> </component> <component> <observation moodCode="EVN" classCode="OBS"> <templateId root= "16.840.1.943546.10..4.2" /> <id nullFlavor="NA" /> < code codeSystem="local" code="075320" displayName="Creatinine, Serum" /> <statusCode code="completed" /> <effectiveTime value="" /> <value unit="mg/dL" xsi:type="PQ" value="0.65" /> < referenceRange> <observationRange> <text>0.57-1.00</text > </observationRange> </referenceRange> </observation > </component> <component> <observation moodCode="EVN" classCode="OBS"> <templateId root="216.840.1.102882.10..4.2" /> <id nullFlavor="NA" /> <code codeSystem="local" code="882557" displayName="eGFR If NonAfricn Am" /> <statusCode code="completed" /> <effectiveTime value="" /> <value unit="mL/min/ 1.73" xsi:type="PQ" value="92" /> <referenceRange> < observationRange> <text> >59</text> </ observationRange> </referenceRange> </observation> </ component> <component> <observation moodCode="EVN" classCode="OBS"> <templateId root="216.840.1.460165.01.21.22.4.2" /> <id nullFlavor="NA" /> <code codeSystem="local" code="210320" displayName= "eGFR If Africn Am" /> <statusCode code="completed" /> < effectiveTime value="" /> <value unit="mL/min/1.73" xsi: type="PQ" value="106" /> <referenceRange> <observationRange > <text> >59</text> </observationRange> < /referenceRange> </observation> </component> <component> <observation moodCode="EVN" classCode="OBS"> <templateId root= "216.840.1.660761.10..22.4.2" /> <id nullFlavor="NA" /> < code codeSystem="local" code="989529" displayName="BUN/Creatinine Ratio" /> <statusCode code="completed" /> <effectiveTime value= "" /> <value unit="" xsi:type="PQ" value="14" /> < referenceRange> <observationRange> <text>11-26</text> </observationRange> </referenceRange> </observation> </component> <component> <observation moodCode="EVN" classCode= "OBS"> <templateId root="216.840.1.172833.10.20.22.4.2" /> < id nullFlavor="NA" /> <code codeSystem="local" code="220667" displayName="Sodium, Serum" /> <statusCode code="completed" /> <effectiveTime value="" /> <value unit="mmol/L" xsi:type= "PQ" value="144" /> <referenceRange> <observationRange> <text>134-144</text> </observationRange> </ referenceRange> </observation> </component> <component> <observation moodCode="EVN" classCode="OBS"> <templateId root= "05.20.840.1.919804.10.22.4.2" /> <id nullFlavor="NA" /> < code codeSystem="local" code="640381" displayName="Potassium, Serum" /> <statusCode code="completed" /> <effectiveTime value="" / > <value unit="mmol/L" xsi:type="PQ" value="4.4" /> < referenceRange> <observationRange> <text>3.5-5.2</text> </observationRange> </referenceRange> </observation > </component> <component> <observation moodCode="EVN" classCode="OBS"> <templateId root="05.20.840.1.239655.10.20.22.4.2" /> <id nullFlavor="NA" /> <code codeSystem="local" code="843964" displayName="Chloride, Serum" /> <statusCode code="completed" /> <effectiveTime value="" /> <value unit="mmol/L" xsi: type="PQ" value="103" /> <referenceRange> <observationRange > <text>96-106</text> </observationRange> </ referenceRange> </observation> </component> <component> <observation moodCode="EVN" classCode="OBS"> <templateId root= "216.840.1.104802.10.2022.4.2" /> <id nullFlavor="NA" /> < code codeSystem="local" code="598024" displayName="Carbon Dioxide, Total" /> <statusCode code="completed" /> <effectiveTime value= "" /> <value unit="mmol/L" xsi:type="PQ" value="28" /> <referenceRange> <observationRange> <text>18-29</ text> </observationRange> </referenceRange> </ observation> </component> <component> <observation moodCode= "EVN" classCode="OBS"> <templateId root="05.20.840.1.942207.22.4.2 " /> <id nullFlavor="NA" /> <code codeSystem="local" code= "870558" displayName="Calcium, Serum" /> <statusCode code="completed" / > <effectiveTime value="" /> <value unit="mg/dL" xsi:type="PQ" value="9.1" /> <referenceRange> < observationRange> <text>8.7-10.3</text> </ observationRange> </referenceRange> </observation> </ component> <component> <observation moodCode="EVN" classCode="OBS"> <templateId root="216.840.1.564553.10.2022.4.2" /> <id nullFlavor="NA" /> <code codeSystem="local" code="144528" displayName= "Protein, Total, Serum" /> <statusCode code="completed" /> < effectiveTime value="" /> <value unit="g/dL" xsi:type="PQ" value="6.7" /> <referenceRange> <observationRange> <text>6.0-8.5</text> </observationRange> </ referenceRange> </observation> </component> <component> <observation moodCode="EVN" classCode="OBS"> <templateId root= "2.16.840.1.769394.10...4.2" /> <id nullFlavor="NA" /> < code codeSystem="local" code="815270" displayName="Albumin, Serum" /> < statusCode code="completed" /> <effectiveTime value="" /> <value unit="g/dL" xsi:type="PQ" value="4.4" /> < referenceRange> <observationRange> <text>3.6-4.8</text> </observationRange> </referenceRange> </observation > </component> <component> <observation moodCode="EVN" classCode="OBS"> <templateId root="2.16.840.1.611545.10...4.2" /> <id nullFlavor="NA" /> <code codeSystem="local" code="576866" displayName="Globulin, Total" /> <statusCode code="completed" /> <effectiveTime value="" /> <value unit="g/dL" xsi:type= "PQ" value="2.3" /> <referenceRange> <observationRange> <text>1.5-4.5</text> </observationRange> </ referenceRange> </observation> </component> <component> <observation moodCode="EVN" classCode="OBS"> <templateId root= "16.840.1.753975.10.2022.4.2" /> <id nullFlavor="NA" /> < code codeSystem="local" code="781757" displayName="A/G Ratio" /> < statusCode code="completed" /> <effectiveTime value="" /> <value unit="" xsi:type="PQ" value="1.9" /> <referenceRange> <observationRange> <text>1.1-2.5</text> </ observationRange> </referenceRange> </observation> </ component> <component> <observation moodCode="EVN" classCode="OBS"> <templateId root="05.20.840.1.732452.10.22.4.2" /> <id nullFlavor="NA" /> <code codeSystem="local" code="839237" displayName= "Bilirubin, Total" /> <statusCode code="completed" /> < effectiveTime value="" /> <value unit="mg/dL" xsi:type="PQ " value="0.4" /> <referenceRange> <observationRange> <text>0.0-1.2</text> </observationRange> </ referenceRange> </observation> </component> <component> <observation moodCode="EVN" classCode="OBS"> <templateId root= "05.20.840.1.359282.10.2022.4.2" /> <id nullFlavor="NA" /> < code codeSystem="local" code="182752" displayName="Alkaline Phosphatase, S" /> <statusCode code="completed" /> <effectiveTime value= "" /> <value unit="IU/L" xsi:type="PQ" value="87" /> <referenceRange> <observationRange> <text>39-117</ text> </observationRange> </referenceRange> </ observation> </component> <component> <observation moodCode= "EVN" classCode="OBS"> <templateId root="216.840.1.411781.10..22.4.2 " /> <id nullFlavor="NA" /> <code codeSystem="local" code= "169461" displayName="AST (SGOT)" /> <statusCode code="completed" /> <effectiveTime value="" /> <value unit="IU/L" xsi: type="PQ" value="14" /> <referenceRange> <observationRange> <text>0-40</text> </observationRange> </ referenceRange> </observation> </component> <component> <observation moodCode="EVN" classCode="OBS"> <templateId root= "05.20.840.1.508451.10..4.2" /> <id nullFlavor="NA" /> < code codeSystem="local" code="477538" displayName="ALT (SGPT)" /> < statusCode code="completed" /> <effectiveTime value="" /> <value unit="IU/L" xsi:type="PQ" value="12" /> <referenceRange > <observationRange> <text>0-32</text> </ observationRange> </referenceRange> </observation> </ component> </organizer> </entry> <entry> <organizer moodCode="EVN" classCode="BATTERY"> <templateId root="16.840.1.341926.10..4.1" /> <id nullFlavor="NA" /> <code codeSystem="local" code="581758" displayName="Lipid Panel" /> <statusCode code="completed" /> < component> <observation moodCode="EVN" classCode="OBS"> < templateId root="216.840.1.806234.10.22.4.2" /> <id nullFlavor="NA " /> <code codeSystem="local" code="718828" displayName="Cholesterol, Total" /> <statusCode code="completed" /> <effectiveTime value ="" /> <value unit="mg/dL" xsi:type="PQ" value="202" /> <interpretationCode codeSystem="local" code="H" /> < referenceRange> <observationRange> <text>100-199</text> </observationRange> </referenceRange> </observation > </component> <component> <observation moodCode="EVN" classCode="OBS"> <templateId root="2.840.1.296625.22.4.2" /> <id nullFlavor="NA" /> <code codeSystem="local" code="045286" displayName="Triglycerides" /> <statusCode code="completed" /> <effectiveTime value="" /> <value unit="mg/dL" xsi:type= "PQ" value="82" /> <referenceRange> <observationRange> <text>0-149</text> </observationRange> </ referenceRange> </observation> </component> <component> <observation moodCode="EVN" classCode="OBS"> <templateId root= "16.840.1.332222.10.2022.4.2" /> <id nullFlavor="NA" /> < code codeSystem="local" code="380993" displayName="HDL Cholesterol" /> <statusCode code="completed" /> <effectiveTime value="" /> <value unit="mg/dL" xsi:type="PQ" value="64" /> < referenceRange> <observationRange> <text>>39</text> </observationRange> </referenceRange> </observation> </component> <component> <observation moodCode="EVN" classCode ="OBS"> <templateId root="216.840.1.565908.10.20.22.4.2" /> < id nullFlavor="NA" /> <code codeSystem="local" code="082459" displayName="VLDL Cholesterol Marcel" /> <statusCode code="completed" /> <effectiveTime value="" /> <value unit="mg/dL" xsi :type="PQ" value="16" /> <referenceRange> <observationRange > <text>5-40</text> </observationRange> </ referenceRange> </observation> </component> <component> <observation moodCode="EVN" classCode="OBS"> <templateId root= "05.20.840.1.471337.10..4.2" /> <id nullFlavor="NA" /> < code codeSystem="local" code="338472" displayName="LDL Cholesterol Calc" /> <statusCode code="completed" /> <effectiveTime value= "" /> <value unit="mg/dL" xsi:type="PQ" value="122" /> <interpretationCode codeSystem="local" code="H" /> < referenceRange> <observationRange> <text>0-99</text> </observationRange> </referenceRange> </observation> </component> </organizer> </entry> <entry> <organizer moodCode="EVN " classCode="BATTERY"> <templateId root="16.840.1.583834.10.20.22.4.1" / > <id nullFlavor="NA" /> <code codeSystem="local" code="809783" displayName="Ova + Parasite Exam" /> <statusCode code="completed" /> < component> <observation moodCode="EVN" classCode="OBS"> < templateId root="216.840.1.633562.01.21.22.4.2" /> <id nullFlavor="NA " /> <code codeSystem="local" code="567635" displayName="Ova + Parasite Exam" /> <statusCode code="completed" /> < effectiveTime value="[id number]" /> <value unit="" xsi:type="PQ" value="Note" /> <referenceRange> <observationRange> <text /> </observationRange> </referenceRange> </observation> </component> </organizer> </entry> <entry> < organizer moodCode="EVN" classCode="BATTERY"> <templateId root= "216.840.1.686908.01.21.22.4.1" /> <id nullFlavor="NA" /> <code codeSystem="local" code="482735" displayName="White Blood Cells (WBC), Stool" / > <statusCode code="completed" /> <component> <observation moodCode="EVN" classCode="OBS"> <templateId root= "216.840.1.694556...22.4.2" /> <id nullFlavor="NA" /> < code codeSystem="local" code="749828" displayName="White Blood Cells (WBC), Stool" /> <statusCode code="completed" /> <effectiveTime value ="[id number]" /> <value unit="" xsi:type="PQ" value="Note" /> <referenceRange> <observationRange> <text /> </observationRange> </referenceRange> </observation> </ component> </organizer> </entry> <entry> <organizer moodCode="EVN" classCode="BATTERY"> <templateId root="05.20.840.1.993510.10..4.1" /> <id nullFlavor="NA" /> <code codeSystem="local" code="173746" displayName="Stool Culture" /> <statusCode code="completed" /> < component> <observation moodCode="EVN" classCode="OBS"> < templateId root="840.1.168204.01.21.22.4.2" /> <id nullFlavor="NA " /> <code codeSystem="local" code="893915" displayName="Stool Culture " /> <statusCode code="completed" /> <effectiveTime value= "335398285934" /> <value unit="" xsi:type="PQ" value="Note" /> <referenceRange> <observationRange> <text /> </observationRange> </referenceRange> </observation> </ component> </organizer> </entry> <entry> <organizer moodCode="EVN" classCode="BATTERY"> <templateId root="840.1.389857.01.21.22.4.1" /> <id nullFlavor="NA" /> <code codeSystem="local" code="113244" displayName="CBC With Differential/Platelet" /> <statusCode code="completed " /> <component> <observation moodCode="EVN" classCode="OBS"> <templateId root="05.20.840.1.904450.01.21.22.4.2" /> <id nullFlavor ="NA" /> <code codeSystem="local" code="822449" displayName="WBC" /> <statusCode code="completed" /> <effectiveTime value= "646647562258" /> <value unit="x10E3/uL" xsi:type="PQ" value="5.5" /> <referenceRange> <observationRange> <text>3.4- 10.8</text> </observationRange> </referenceRange> </ observation> </component> <component> <observation moodCode= "EVN" classCode="OBS"> <templateId root="216.840.1.924847.10.20.22.4.2 " /> <id nullFlavor="NA" /> <code codeSystem="local" code= "279462" displayName="RBC" /> <statusCode code="completed" /> <effectiveTime value="605990998618" /> <value unit="x10E6/uL" xsi:type= "PQ" value="4.63" /> <referenceRange> <observationRange> <text>3.77-5.28</text> </observationRange> </ referenceRange> </observation> </component> <component> <observation moodCode="EVN" classCode="OBS"> <templateId root= "05.20.840.1.388261.10.22.4.2" /> <id nullFlavor="NA" /> < code codeSystem="local" code="788421" displayName="Hemoglobin" /> < statusCode code="completed" /> <effectiveTime value="549193435628" /> <value unit="g/dL" xsi:type="PQ" value="14.0" /> < referenceRange> <observationRange> <text>11.1-15.9</text > </observationRange> </referenceRange> </observation > </component> <component> <observation moodCode="EVN" classCode="OBS"> <templateId root="16.840.1.888694.10.20.22.4.2" /> <id nullFlavor="NA" /> <code codeSystem="local" code="476487" displayName="Hematocrit" /> <statusCode code="completed" /> < effectiveTime value="168440558392" /> <value unit="%" xsi:type="PQ " value="43.0" /> <referenceRange> <observationRange> <text>34.0-46.6</text> </observationRange> </ referenceRange> </observation> </component> <component> <observation moodCode="EVN" classCode="OBS"> <templateId root= "05.20.840.1.701269.10.20.22.4.2" /> <id nullFlavor="NA" /> < code codeSystem="local" code="595812" displayName="MCV" /> <statusCode code="completed" /> <effectiveTime value="" /> < value unit="fL" xsi:type="PQ" value="93" /> <referenceRange> <observationRange> <text>79-97</text> </ observationRange> </referenceRange> </observation> </ component> <component> <observation moodCode="EVN" classCode="OBS"> <templateId root="05.20.840.1.978475.01.21.22.4.2" /> <id nullFlavor="NA" /> <code codeSystem="local" code="290271" displayName= "MCH" /> <statusCode code="completed" /> <effectiveTime value= "439112666554" /> <value unit="pg" xsi:type="PQ" value="30.2" /> <referenceRange> <observationRange> <text>26.6-33.0< /text> </observationRange> </referenceRange> </ observation> </component> <component> <observation moodCode= "EVN" classCode="OBS"> <templateId root="05.20.840.1.654931.01.21.22.4.2 " /> <id nullFlavor="NA" /> <code codeSystem="local" code= "939579" displayName="MCHC" /> <statusCode code="completed" /> <effectiveTime value="" /> <value unit="g/dL" xsi:type= "PQ" value="32.6" /> <referenceRange> <observationRange> <text>31.5-35.7</text> </observationRange> </ referenceRange> </observation> </component> <component> <observation moodCode="EVN" classCode="OBS"> <templateId root= "2.16.840.1.265488.01.21.22.4.2" /> <id nullFlavor="NA" /> < code codeSystem="local" code="561001" displayName="RDW" /> <statusCode code="completed" /> <effectiveTime value="" /> < value unit="%" xsi:type="PQ" value="13.4" /> <referenceRange> <observationRange> <text>12.3-15.4</text> </ observationRange> </referenceRange> </observation> </ component> <component> <observation moodCode="EVN" classCode="OBS"> <templateId root="2.16.840.1.446574.01.21.22.4.2" /> <id nullFlavor="NA" /> <code codeSystem="local" code="897939" displayName= "Platelets" /> <statusCode code="completed" /> <effectiveTime value="" /> <value unit="x10E3/uL" xsi:type="PQ" value="277 " /> <referenceRange> <observationRange> <text> 150-379</text> </observationRange> </referenceRange> </observation> </component> <component> <observation moodCode= "EVN" classCode="OBS"> <templateId root="2.16.840.1.953749.10...4.2 " /> <id nullFlavor="NA" /> <code codeSystem="local" code= "498879" displayName="Neutrophils" /> <statusCode code="completed" /> <effectiveTime value="" /> <value unit="%" xsi :type="PQ" value="61" /> <referenceRange> <observationRange > <text>Not Estab.</text> </observationRange> < /referenceRange> </observation> </component> <component> <observation moodCode="EVN" classCode="OBS"> <templateId root= "216.840.1.189685.10..4.2" /> <id nullFlavor="NA" /> < code codeSystem="local" code="591528" displayName="Lymphs" /> < statusCode code="completed" /> <effectiveTime value="" /> <value unit="%" xsi:type="PQ" value="26" /> < referenceRange> <observationRange> <text>Not Estab.</ text> </observationRange> </referenceRange> </ observation> </component> <component> <observation moodCode= "EVN" classCode="OBS"> <templateId root="216.840.1.399796.10.20.22.4.2 " /> <id nullFlavor="NA" /> <code codeSystem="local" code= "249344" displayName="Monocytes" /> <statusCode code="completed" /> <effectiveTime value="569359258684" /> <value unit="%" xsi: type="PQ" value="11" /> <referenceRange> <observationRange> <text>Not Estab.</text> </observationRange> </ referenceRange> </observation> </component> <component> <observation moodCode="EVN" classCode="OBS"> <templateId root= "216.840.1.311487.10..4.2" /> <id nullFlavor="NA" /> < code codeSystem="local" code="839090" displayName="Eos" /> <statusCode code="completed" /> <effectiveTime value="" /> < value unit="%" xsi:type="PQ" value="2" /> <referenceRange> <observationRange> <text>Not Estab.</text> </ observationRange> </referenceRange> </observation> </ component> <component> <observation moodCode="EVN" classCode="OBS"> <templateId root="05.20.840.1.730160.01.21.22.4.2" /> <id nullFlavor="NA" /> <code codeSystem="local" code="832037" displayName= "Basos" /> <statusCode code="completed" /> <effectiveTime value="" /> <value unit="%" xsi:type="PQ" value="0" /> <referenceRange> <observationRange> <text>Not Estab.</text> </observationRange> </referenceRange> < /observation> </component> <component> <observation moodCode= "EVN" classCode="OBS"> <templateId root="05.20.840.1.640470.01.21.22.4.2 " /> <id nullFlavor="NA" /> <code codeSystem="local" code= "033212" displayName="Neutrophils (Absolute)" /> <statusCode code= "completed" /> <effectiveTime value="" /> <value unit="x10E3/uL" xsi:type="PQ" value="3.3" /> <referenceRange> <observationRange> <text>1.4-7.0</text> </ observationRange> </referenceRange> </observation> </ component> <component> <observation moodCode="EVN" classCode="OBS"> <templateId root="216.840.1.048336.10..22.4.2" /> <id nullFlavor="NA" /> <code codeSystem="local" code="354157" displayName= "Lymphs (Absolute)" /> <statusCode code="completed" /> < effectiveTime value="452912818265" /> <value unit="x10E3/uL" xsi:type= "PQ" value="1.5" /> <referenceRange> <observationRange> <text>0.7-3.1</text> </observationRange> </ referenceRange> </observation> </component> <component> <observation moodCode="EVN" classCode="OBS"> <templateId root= "216.840.1.690051...4.2" /> <id nullFlavor="NA" /> < code codeSystem="local" code="602776" displayName="Monocytes(Absolute)" /> <statusCode code="completed" /> <effectiveTime value="825744096043 " /> <value unit="x10E3/uL" xsi:type="PQ" value="0.6" /> < referenceRange> <observationRange> <text>0.1-0.9</text> </observationRange> </referenceRange> </observation > </component> <component> <observation moodCode="EVN" classCode="OBS"> <templateId root="2.16.840.1.127447.10..22.4.2" /> <id nullFlavor="NA" /> <code codeSystem="local" code="901528" displayName="Eos (Absolute)" /> <statusCode code="completed" /> <effectiveTime value="571834131460" /> <value unit="x10E3/uL" xsi: type="PQ" value="0.1" /> <referenceRange> <observationRange > <text>0.0-0.4</text> </observationRange> </ referenceRange> </observation> </component> <component> <observation moodCode="EVN" classCode="OBS"> <templateId root= "2.16.840.1.597889.10..4.2" /> <id nullFlavor="NA" /> < code codeSystem="local" code="200127" displayName="Baso (Absolute)" /> <statusCode code="completed" /> <effectiveTime value="539513872711" /> <value unit="x10E3/uL" xsi:type="PQ" value="0.0" /> < referenceRange> <observationRange> <text>0.0-0.2</text> </observationRange> </referenceRange> </observation > </component> <component> <observation moodCode="EVN" classCode="OBS"> <templateId root="2.16.840.1.446828...4.2" /> <id nullFlavor="NA" /> <code codeSystem="local" code="664250" displayName="Immature Granulocytes" /> <statusCode code="completed" /> <effectiveTime value="012397406671" /> <value unit="%" xsi:type="PQ" value="0" /> <referenceRange> < observationRange> <text>Not Estab.</text> </ observationRange> </referenceRange> </observation> </ component> <component> <observation moodCode="EVN" classCode="OBS"> <templateId root="2.16.840.1.923193.10..22.4.2" /> <id nullFlavor="NA" /> <code codeSystem="local" code="402644" displayName= "Immature Grans (Abs)" /> <statusCode code="completed" /> < effectiveTime value="389793016082" /> <value unit="x10E3/uL" xsi:type= "PQ" value="0.0" /> <referenceRange> <observationRange> <text>0.0-0.1</text> </observationRange> </ referenceRange> </observation> </component> </organizer> </entry > <entry> <organizer moodCode="EVN" classCode="BATTERY"> <templateId root="2.16.840.1.836129.10..22.4.1" /> <id nullFlavor="NA" /> <code codeSystem="local" code="851418" displayName="Comp. Metabolic Panel (14)" /> <statusCode code="completed" /> <component> <observation moodCode ="EVN" classCode="OBS"> <templateId root= "2.16.840.1.697547.10.20.22.4.2" /> <id nullFlavor="NA" /> < code codeSystem="local" code="041461" displayName="Glucose, Serum" /> < statusCode code="completed" /> <effectiveTime value="218302864427" /> <value unit="mg/dL" xsi:type="PQ" value="88" /> < referenceRange> <observationRange> <text>65-99</text> </observationRange> </referenceRange> </observation> </component> <component> <observation moodCode="EVN" classCode= "OBS"> <templateId root="216.840.1.285420.10..22.4.2" /> < id nullFlavor="NA" /> <code codeSystem="local" code="702941" displayName="BUN" /> <statusCode code="completed" /> < effectiveTime value="251772925175" /> <value unit="mg/dL" xsi:type="PQ " value="15" /> <referenceRange> <observationRange> <text>8-27</text> </observationRange> </referenceRange > </observation> </component> <component> <observation moodCode="EVN" classCode="OBS"> <templateId root= "216.840.1.724933.10..4.2" /> <id nullFlavor="NA" /> < code codeSystem="local" code="757041" displayName="Creatinine, Serum" /> <statusCode code="completed" /> <effectiveTime value="374098378851" /> <value unit="mg/dL" xsi:type="PQ" value="0.75" /> < referenceRange> <observationRange> <text>0.57-1.00</text > </observationRange> </referenceRange> </observation > </component> <component> <observation moodCode="EVN" classCode="OBS"> <templateId root="05.20.840.1.378336.10...4.2" /> <id nullFlavor="NA" /> <code codeSystem="local" code="681751" displayName="eGFR If NonAfricn Am" /> <statusCode code="completed" /> <effectiveTime value="098452460369" /> <value unit="mL/min/ 1.73" xsi:type="PQ" value="82" /> <referenceRange> < observationRange> <text> >59</text> </ observationRange> </referenceRange> </observation> </ component> <component> <observation moodCode="EVN" classCode="OBS"> <templateId root="216.840.1.023994.10.4.2" /> <id nullFlavor="NA" /> <code codeSystem="local" code="869355" displayName= "eGFR If Africn Am" /> <statusCode code="completed" /> < effectiveTime value="662757029007" /> <value unit="mL/min/1.73" xsi: type="PQ" value="95" /> <referenceRange> <observationRange> <text> >59</text> </observationRange> </ referenceRange> </observation> </component> <component> <observation moodCode="EVN" classCode="OBS"> <templateId root= "05.20.840.1.131812.01.21.22.4.2" /> <id nullFlavor="NA" /> < code codeSystem="local" code="504344" displayName="BUN/Creatinine Ratio" /> <statusCode code="completed" /> <effectiveTime value= "260978659123" /> <value unit="" xsi:type="PQ" value="20" /> < referenceRange> <observationRange> <text>12-28</text> </observationRange> </referenceRange> </observation> </component> <component> <observation moodCode="EVN" classCode= "OBS"> <templateId root="05.20.840.1.516187...4.2" /> < id nullFlavor="NA" /> <code codeSystem="local" code="310062" displayName="Sodium, Serum" /> <statusCode code="completed" /> <effectiveTime value="454678847745" /> <value unit="mmol/L" xsi:type= "PQ" value="144" /> <referenceRange> <observationRange> <text>134-144</text> </observationRange> </ referenceRange> </observation> </component> <component> <observation moodCode="EVN" classCode="OBS"> <templateId root= "216.840.1.003386.10.20.22.4.2" /> <id nullFlavor="NA" /> < code codeSystem="local" code="518614" displayName="Potassium, Serum" /> <statusCode code="completed" /> <effectiveTime value="501203921555" / > <value unit="mmol/L" xsi:type="PQ" value="4.1" /> < referenceRange> <observationRange> <text>3.5-5.2</text> </observationRange> </referenceRange> </observation > </component> <component> <observation moodCode="EVN" classCode="OBS"> <templateId root="05.20.840.1.478777.10.22.4.2" /> <id nullFlavor="NA" /> <code codeSystem="local" code="408243" displayName="Chloride, Serum" /> <statusCode code="completed" /> <effectiveTime value="813303981813" /> <value unit="mmol/L" xsi: type="PQ" value="103" /> <referenceRange> <observationRange > <text>96-106</text> </observationRange> </ referenceRange> </observation> </component> <component> <observation moodCode="EVN" classCode="OBS"> <templateId root= "16.840.1.512051.10.20.22.4.2" /> <id nullFlavor="NA" /> < code codeSystem="local" code="652656" displayName="Carbon Dioxide, Total" /> <statusCode code="completed" /> <effectiveTime value= "791358170361" /> <value unit="mmol/L" xsi:type="PQ" value="28" /> <referenceRange> <observationRange> <text>18-29</ text> </observationRange> </referenceRange> </ observation> </component> <component> <observation moodCode= "EVN" classCode="OBS"> <templateId root="05.20.840.1.471678.10..22.4.2 " /> <id nullFlavor="NA" /> <code codeSystem="local" code= "805614" displayName="Calcium, Serum" /> <statusCode code="completed" / > <effectiveTime value="833363536999" /> <value unit="mg/dL" xsi:type="PQ" value="9.6" /> <referenceRange> < observationRange> <text>8.7-10.3</text> </ observationRange> </referenceRange> </observation> </ component> <component> <observation moodCode="EVN" classCode="OBS"> <templateId root="05.20.840.1.671048.10..22.4.2" /> <id nullFlavor="NA" /> <code codeSystem="local" code="910347" displayName= "Protein, Total, Serum" /> <statusCode code="completed" /> < effectiveTime value="578781724767" /> <value unit="g/dL" xsi:type="PQ" value="7.0" /> <referenceRange> <observationRange> <text>6.0-8.5</text> </observationRange> </ referenceRange> </observation> </component> <component> <observation moodCode="EVN" classCode="OBS"> <templateId root= "05.20.830.1.942521.01.21.22.4.2" /> <id nullFlavor="NA" /> < code codeSystem="local" code="056228" displayName="Albumin, Serum" /> < statusCode code="completed" /> <effectiveTime value="954176925314" /> <value unit="g/dL" xsi:type="PQ" value="4.4" /> < referenceRange> <observationRange> <text>3.6-4.8</text> </observationRange> </referenceRange> </observation > </component> <component> <observation moodCode="EVN" classCode="OBS"> <templateId root="05.20.840.1.322297.01.21.22.4.2" /> <id nullFlavor="NA" /> <code codeSystem="local" code="145281" displayName="Globulin, Total" /> <statusCode code="completed" /> <effectiveTime value="270104957167" /> <value unit="g/dL" xsi:type= "PQ" value="2.6" /> <referenceRange> <observationRange> <text>1.5-4.5</text> </observationRange> </ referenceRange> </observation> </component> <component> <observation moodCode="EVN" classCode="OBS"> <templateId root= "05.20.840.1.524216.01.21.22.4.2" /> <id nullFlavor="NA" /> < code codeSystem="local" code="842558" displayName="A/G Ratio" /> < statusCode code="completed" /> <effectiveTime value="851910348177" /> <value unit="" xsi:type="PQ" value="1.7" /> <referenceRange> <observationRange> <text>1.2-2.2</text> </ observationRange> </referenceRange> </observation> </ component> <component> <observation moodCode="EVN" classCode="OBS"> <templateId root="216.840.1.210714.10.4.2" /> <id nullFlavor="NA" /> <code codeSystem="local" code="440913" displayName= "Bilirubin, Total" /> <statusCode code="completed" /> < effectiveTime value="853305113492" /> <value unit="mg/dL" xsi:type="PQ " value="0.3" /> <referenceRange> <observationRange> <text>0.0-1.2</text> </observationRange> </ referenceRange> </observation> </component> <component> <observation moodCode="EVN" classCode="OBS"> <templateId root= "05.20.840.1.111178.01.21.22.4.2" /> <id nullFlavor="NA" /> < code codeSystem="local" code="685227" displayName="Alkaline Phosphatase, S" /> <statusCode code="completed" /> <effectiveTime value= "211388744487" /> <value unit="IU/L" xsi:type="PQ" value="80" /> <referenceRange> <observationRange> <text>39-117</ text> </observationRange> </referenceRange> </ observation> </component> <component> <observation moodCode= "EVN" classCode="OBS"> <templateId root="05.20.840.1.371835...4.2 " /> <id nullFlavor="NA" /> <code codeSystem="local" code= "614285" displayName="AST (SGOT)" /> <statusCode code="completed" /> <effectiveTime value="597512490979" /> <value unit="IU/L" xsi: type="PQ" value="15" /> <referenceRange> <observationRange> <text>0-40</text> </observationRange> </ referenceRange> </observation> </component> <component> <observation moodCode="EVN" classCode="OBS"> <templateId root= "216.840.1.855639.10..22.4.2" /> <id nullFlavor="NA" /> < code codeSystem="local" code="250459" displayName="ALT (SGPT)" /> < statusCode code="completed" /> <effectiveTime value="891733125378" /> <value unit="IU/L" xsi:type="PQ" value="15" /> <referenceRange > <observationRange> <text>0-32</text> </ observationRange> </referenceRange> </observation> </ component> </organizer> </entry> <entry> <organizer moodCode="EVN" classCode="BATTERY"> <templateId root="05.20.840.1.849521.10...4.1" /> <id nullFlavor="NA" /> <code codeSystem="local" code="699886" displayName="Sedimentation Rate-Westergren" /> <statusCode code="completed " /> <component> <observation moodCode="EVN" classCode="OBS"> <templateId root="16.840.1.862289.10..22.4.2" /> <id nullFlavor ="NA" /> <code codeSystem="local" code="026334" displayName= "Sedimentation Rate-Westergren" /> <statusCode code="completed" /> <effectiveTime value="623094059502" /> <value unit="mm/hr" xsi: type="PQ" value="6" /> <referenceRange> <observationRange> <text>0-40</text> </observationRange> </ referenceRange> </observation> </component> </organizer> </entry > <entry> <organizer moodCode="EVN" classCode="BATTERY"> <templateId root="05.20.840.1.595600.10..4.1" /> <id nullFlavor="NA" /> <code codeSystem="local" code="519455" displayName="C-Reactive Protein, Quant" /> <statusCode code="completed" /> <component> <observation moodCode= "EVN" classCode="OBS"> <templateId root="05.20.840.1.896166.01.21.22.4.2 " /> <id nullFlavor="NA" /> <code codeSystem="local" code= "571376" displayName="C-Reactive Protein, Quant" /> <statusCode code= "completed" /> <effectiveTime value="623888287438" /> <value unit="mg/L" xsi:type="PQ" value="5.7" /> <interpretationCode codeSystem ="local" code="H" /> <referenceRange> <observationRange> <text>0.0-4.9</text> </observationRange> </ referenceRange> </observation> </component> </organizer> </entry > <entry> <organizer moodCode="EVN" classCode="BATTERY"> <templateId root="05.20.840.1.414928.10.4.1" /> <id nullFlavor="NA" /> <code codeSystem="local" code="UA" displayName="Urinalysis with reflex microscopic" / > <statusCode code="completed" /> <component> <observation moodCode="EVN" classCode="OBS"> <templateId root= "05.20.840.1.718565.01.21.22.4.2" /> <id nullFlavor="NA" /> < code codeSystem="local" code="UAPP" displayName="Appearance" /> < statusCode code="completed" /> <effectiveTime value="" /> <value unit="NA" xsi:type="PQ" value="Sl Cloudy" /> < referenceRange> <observationRange> <text /> < /observationRange> </referenceRange> </observation> </ component> <component> <observation moodCode="EVN" classCode="OBS"> <templateId root="216.840.1.896675.01.21.22.4.2" /> <id nullFlavor="NA" /> <code codeSystem="local" code="UBIL" displayName= "Bilirubin" /> <statusCode code="completed" /> <effectiveTime value="" /> <value unit="NA" xsi:type="PQ" value="Negative " /> <referenceRange> <observationRange> <text> Negative</text> </observationRange> </referenceRange> </observation> </component> <component> <observation moodCode ="EVN" classCode="OBS"> <templateId root= "16.840.1.217106...4.2" /> <id nullFlavor="NA" /> < code codeSystem="local" code="UBLD" displayName="Blood" /> <statusCode code="completed" /> <effectiveTime value="" /> < value unit="NA" xsi:type="PQ" value="Pos 3+" /> <interpretationCode codeSystem="local" code="*" /> <referenceRange> < observationRange> <text>Negative</text> </ observationRange> </referenceRange> </observation> </ component> <component> <observation moodCode="EVN" classCode="OBS"> <templateId root="216.840.1.139511.10..4.2" /> <id nullFlavor="NA" /> <code codeSystem="local" code="UCOLR" displayName= "Color" /> <statusCode code="completed" /> <effectiveTime value="" /> <value unit="NA" xsi:type="PQ" value="Yellow" / > <referenceRange> <observationRange> <text /> </observationRange> </referenceRange> </observation > </component> <component> <observation moodCode="EVN" classCode="OBS"> <templateId root="16.840.1.120920.01.21.22.4.2" /> <id nullFlavor="NA" /> <code codeSystem="local" code="UGLU" displayName="Glucose, Urine" /> <statusCode code="completed" /> <effectiveTime value="" /> <value unit="" xsi:type="PQ" value="Negative" /> <referenceRange> <observationRange> <text>Negative</text> </observationRange> </ referenceRange> </observation> </component> <component> <observation moodCode="EVN" classCode="OBS"> <templateId root= "16.840.1.912286.10.4.2" /> <id nullFlavor="NA" /> < code codeSystem="local" code="UKET" displayName="Ketones" /> < statusCode code="completed" /> <effectiveTime value="" /> <value unit="" xsi:type="PQ" value="Trace" /> < interpretationCode codeSystem="local" code="*" /> <referenceRange> <observationRange> <text>Negative</text> </ observationRange> </referenceRange> </observation> </ component> <component> <observation moodCode="EVN" classCode="OBS"> <templateId root="216.840.1.074073.10..4.2" /> <id nullFlavor="NA" /> <code codeSystem="local" code="ULEU" displayName= "Leukocyte Esterase" /> <statusCode code="completed" /> < effectiveTime value="" /> <value unit="NA" xsi:type="PQ" value="Pos 2+" /> <interpretationCode codeSystem="local" code="*" /> <referenceRange> <observationRange> <text> Negative</text> </observationRange> </referenceRange> </observation> </component> <component> <observation moodCode ="EVN" classCode="OBS"> <templateId root= "05.20.840.1.944140.01.21.224.2" /> <id nullFlavor="NA" /> < code codeSystem="local" code="UNIT" displayName="Nitrites" /> < statusCode code="completed" /> <effectiveTime value="" /> <value unit="NA" xsi:type="PQ" value="Positive" /> < interpretationCode codeSystem="local" code="*" /> <referenceRange> <observationRange> <text>Negative</text> </ observationRange> </referenceRange> </observation> </ component> <component> <observation moodCode="EVN" classCode="OBS"> <templateId root="05.20.840.1.108211.01.21.22.4.2" /> <id nullFlavor="NA" /> <code codeSystem="local" code="UPH" displayName="pH " /> <statusCode code="completed" /> <effectiveTime value= "" /> <value unit="NA" xsi:type="PQ" value="6.5" /> <referenceRange> <observationRange> <text>5.0-8.0</ text> </observationRange> </referenceRange> </ observation> </component> <component> <observation moodCode= "EVN" classCode="OBS"> <templateId root="216.840.1.090994.01.21.22.4.2 " /> <id nullFlavor="NA" /> <code codeSystem="local" code= "UPRO" displayName="Protein" /> <statusCode code="completed" /> <effectiveTime value="" /> <value unit="" xsi:type="PQ" value="Pos 2+" /> <interpretationCode codeSystem="local" code="*" /> <referenceRange> <observationRange> <text> Negative</text> </observationRange> </referenceRange> </observation> </component> <component> <observation moodCode ="EVN" classCode="OBS"> <templateId root= "16.840.1.208250.01.21.22.4.2" /> <id nullFlavor="NA" /> < code codeSystem="local" code="USPG" displayName="Specific [place]" /> < statusCode code="completed" /> <effectiveTime value="" /> <value unit="NA" xsi:type="PQ" value="1.023" /> < referenceRange> <observationRange> <text>1.003-1.030</ text> </observationRange> </referenceRange> </ observation> </component> <component> <observation moodCode= "EVN" classCode="OBS"> <templateId root="216.840.1.587687.01.21.22.4.2 " /> <id nullFlavor="NA" /> <code codeSystem="local" code= "UTYP" displayName="UA Collection type" /> <statusCode code="completed " /> <effectiveTime value="" /> <value unit="NA" xsi:type="PQ" value="Cl Catch" /> <referenceRange> < observationRange> <text /> </observationRange> </referenceRange> </observation> </component> <component> <observation moodCode="EVN" classCode="OBS"> <templateId root= "840.1.788469.01.21.22.4.2" /> <id nullFlavor="NA" /> < code codeSystem="local" code="UURO" displayName="Urobilinogen" /> < statusCode code="completed" /> <effectiveTime value="" /> <value unit="mg/dL" xsi:type="PQ" value="Negative" /> < referenceRange> <observationRange> <text><1.0</text> </observationRange> </referenceRange> </observation > </component> </organizer> </entry> <entry> <organizer moodCode= "EVN" classCode="BATTERY"> <templateId root="05.20.840.1.163440.01.21.22.4.1 " /> <id nullFlavor="NA" /> <code codeSystem="local" code="UMIC" displayName="Urine Microscopic" /> <statusCode code="completed" /> < component> <observation moodCode="EVN" classCode="OBS"> < templateId root="05.20.840.1.222838.01.21.22.4.2" /> <id nullFlavor="NA " /> <code codeSystem="local" code="UBAC" displayName="Bacteria" /> <statusCode code="completed" /> <effectiveTime value= "" /> <value unit="NA" xsi:type="PQ" value="Moderate" /> <interpretationCode codeSystem="local" code="*" /> < referenceRange> <observationRange> <text /> < /observationRange> </referenceRange> </observation> </ component> <component> <observation moodCode="EVN" classCode="OBS"> <templateId root="216.840.1.719257.01.21.22.4.2" /> <id nullFlavor="NA" /> <code codeSystem="local" code="UEPI" displayName= "Epithelial Cells" /> <statusCode code="completed" /> < effectiveTime value="" /> <value unit="/HPF" xsi:type="PQ" value="0" /> <referenceRange> <observationRange> <text /> </observationRange> </referenceRange> </ observation> </component> <component> <observation moodCode= "EVN" classCode="OBS"> <templateId root="16.840.1.691949.01.21.22.4.2 " /> <id nullFlavor="NA" /> <code codeSystem="local" code= "URBC" displayName="RBC, Urine" /> <statusCode code="completed" /> <effectiveTime value="" /> <value unit="/HPF" xsi: type="PQ" value="20" /> <interpretationCode codeSystem="local" code="* " /> <referenceRange> <observationRange> <text> 0-2</text> </observationRange> </referenceRange> </ observation> </component> <component> <observation moodCode= "EVN" classCode="OBS"> <templateId root="2.840.1.654620.01.21.22.4.2 " /> <id nullFlavor="NA" /> <code codeSystem="local" code= "UWBC" displayName="WBC, Urine" /> <statusCode code="completed" /> <effectiveTime value="276633694882" /> <value unit="/HPF" xsi: type="PQ" value="20" /> <interpretationCode codeSystem="local" code="* " /> <referenceRange> <observationRange> <text> 0-4</text> </observationRange> </referenceRange> </ observation> </component> </organizer> </entry> <entry> <organizer moodCode="EVN" classCode="BATTERY"> <templateId root= "2.16.840.1.850633.01.21.22.4.1" /> <id nullFlavor="NA" /> <code codeSystem="local" code="43555-2" displayName="Complete blood count (CBC) with automated white blood cell (WBC) differential" /> <statusCode code= "completed" /> <component> <observation moodCode="EVN" classCode= "OBS"> <templateId root="2.16.840.1.651956.10...4.2" /> < id nullFlavor="NA" /> <code codeSystem="local" code="6690-2" displayName="Blood leukocytes automated count (number/volume)" /> < statusCode code="completed" /> <effectiveTime value="741559008924" /> <value unit="10*3/uL" xsi:type="PQ" value="5.7" /> < referenceRange> <observationRange> <text>4.3-11.0</text > </observationRange> </referenceRange> </observation > </component> <component> <observation moodCode="EVN" classCode="OBS"> <templateId root="2.16.840.1.047359.10.20.22.4.2" /> <id nullFlavor="NA" /> <code codeSystem="local" code="789-8" displayName="Blood erythrocytes automated count (number/volume)" /> < statusCode code="completed" /> <effectiveTime value="367354196304" /> <value unit="10*6/uL" xsi:type="PQ" value="4.59" /> < referenceRange> <observationRange> <text>4.35-5.85</text > </observationRange> </referenceRange> </observation > </component> <component> <observation moodCode="EVN" classCode="OBS"> <templateId root="216.840.1.689963.10..22.4.2" /> <id nullFlavor="NA" /> <code codeSystem="local" code="22197-2 " displayName="Venous blood hemoglobin measurement (mass/volume)" /> < statusCode code="completed" /> <effectiveTime value="993982198308" /> <value unit="g/dL" xsi:type="PQ" value="14.6" /> < referenceRange> <observationRange> <text>11.5-16.0</text > </observationRange> </referenceRange> </observation > </component> <component> <observation moodCode="EVN" classCode="OBS"> <templateId root="16.840.1.335408.10.20.22.4.2" /> <id nullFlavor="NA" /> <code codeSystem="local" code="74237-2 " displayName="Blood hematocrit (volume fraction)" /> <statusCode code= "completed" /> <effectiveTime value="535947781870" /> <value unit="%" xsi:type="PQ" value="43" /> <referenceRange> < observationRange> <text>35-52</text> </observationRange > </referenceRange> </observation> </component> < component> <observation moodCode="EVN" classCode="OBS"> < templateId root="216.840.1.359118.10.20.22.4.2" /> <id nullFlavor="NA " /> <code codeSystem="local" code="787-2" displayName="Automated erythrocyte mean corpuscular volume" /> <statusCode code="completed" / > <effectiveTime value="795904451165" /> <value unit="[foz_us] " xsi:type="PQ" value="93" /> <referenceRange> < observationRange> <text>80-99</text> </observationRange > </referenceRange> </observation> </component> < component> <observation moodCode="EVN" classCode="OBS"> < templateId root="16.840.1.472031.10...4.2" /> <id nullFlavor="NA " /> <code codeSystem="local" code="785-6" displayName="Automated erythrocyte mean corpuscular hemoglobin (mass per erythrocyte)" /> < statusCode code="completed" /> <effectiveTime value="944865786630" /> <value unit="pg" xsi:type="PQ" value="32" /> <referenceRange> <observationRange> <text>25-34</text> </ observationRange> </referenceRange> </observation> </ component> <component> <observation moodCode="EVN" classCode="OBS"> <templateId root="216.840.1.327589.10..22.4.2" /> <id nullFlavor="NA" /> <code codeSystem="local" code="786-4" displayName= "Automated erythrocyte mean corpuscular hemoglobin concentration measurement ( mass/volume)" /> <statusCode code="completed" /> < effectiveTime value="386882382539" /> <value unit="g/dL" xsi:type="PQ" value="34" /> <referenceRange> <observationRange> <text>32-36</text> </observationRange> </referenceRange > </observation> </component> <component> <observation moodCode="EVN" classCode="OBS"> <templateId root= "216.840.1.277057.10.20.22.4.2" /> <id nullFlavor="NA" /> < code codeSystem="local" code="788-0" displayName="Automated erythrocyte distribution width ratio" /> <statusCode code="completed" /> < effectiveTime value="840292474843" /> <value unit="%" xsi:type="PQ " value="13.3" /> <referenceRange> <observationRange> <text>10.0-14.5</text> </observationRange> </ referenceRange> </observation> </component> <component> <observation moodCode="EVN" classCode="OBS"> <templateId root= "216.840.1.421044.10.20.22.4.2" /> <id nullFlavor="NA" /> < code codeSystem="local" code="777-3" displayName="Automated blood platelet count (count/volume)" /> <statusCode code="completed" /> < effectiveTime value="621464153670" /> <value unit="10*3/uL" xsi:type= "PQ" value="253" /> <referenceRange> <observationRange> <text>130-400</text> </observationRange> </ referenceRange> </observation> </component> <component> <observation moodCode="EVN" classCode="OBS"> <templateId root= "216.840.1.273696.10.20.22.4.2" /> <id nullFlavor="NA" /> < code codeSystem="local" code="20548-3" displayName="Automated blood platelet mean volume measurement" /> <statusCode code="completed" /> < effectiveTime value="297996080550" /> <value unit="[[facility]]" xsi:type= "PQ" value="8.8" /> <referenceRange> <observationRange> <text>7.4-10.4</text> </observationRange> </ referenceRange> </observation> </component> <component> <observation moodCode="EVN" classCode="OBS"> <templateId root= "216.840.1.350004.10.20.22.4.2" /> <id nullFlavor="NA" /> < code codeSystem="local" code="770-8" displayName="Automated blood neutrophils/ 100 leukocytes" /> <statusCode code="completed" /> < effectiveTime value="439558425152" /> <value unit="%" xsi:type="PQ " value="58" /> <referenceRange> <observationRange> <text>42-75</text> </observationRange> </ referenceRange> </observation> </component> <component> <observation moodCode="EVN" classCode="OBS"> <templateId root= "16.840.1.895121.10.20.22.4.2" /> <id nullFlavor="NA" /> < code codeSystem="local" code="736-9" displayName="Automated blood lymphocytes/ 100 leukocytes" /> <statusCode code="completed" /> < effectiveTime value="982171375912" /> <value unit="%" xsi:type="PQ " value="29" /> <referenceRange> <observationRange> <text>12-44</text> </observationRange> </ referenceRange> </observation> </component> <component> <observation moodCode="EVN" classCode="OBS"> <templateId root= "2.16.840.1.022583.10..4.2" /> <id nullFlavor="NA" /> < code codeSystem="local" code="82639-2" displayName="Blood monocytes/100 leukocytes" /> <statusCode code="completed" /> <effectiveTime value="018675337647" /> <value unit="%" xsi:type="PQ" value="11" / > <referenceRange> <observationRange> <text>0- 12</text> </observationRange> </referenceRange> </ observation> </component> <component> <observation moodCode= "EVN" classCode="OBS"> <templateId root="216.840.1.746507.01.21.22.4.2 " /> <id nullFlavor="NA" /> <code codeSystem="local" code="713 -8" displayName="Automated blood eosinophils/100 leukocytes" /> < statusCode code="completed" /> <effectiveTime value="785925592317" /> <value unit="%" xsi:type="PQ" value="1" /> <referenceRange > <observationRange> <text>0-10</text> </ observationRange> </referenceRange> </observation> </ component> <component> <observation moodCode="EVN" classCode="OBS"> <templateId root="2.16.840.1.892803.10...4.2" /> <id nullFlavor="NA" /> <code codeSystem="local" code="706-2" displayName= "Automated blood basophils/100 leukocytes" /> <statusCode code= "completed" /> <effectiveTime value="932425913973" /> <value unit="%" xsi:type="PQ" value="0" /> <referenceRange> < observationRange> <text>0-10</text> </observationRange> </referenceRange> </observation> </component> < component> <observation moodCode="EVN" classCode="OBS"> < templateId root="2.16.840.1.276694.10.2022.4.2" /> <id nullFlavor="NA " /> <code codeSystem="local" code="751-8" displayName="Blood neutrophils automated count (number/volume)" /> <statusCode code= "completed" /> <effectiveTime value="994984685394" /> <value unit="10*3" xsi:type="PQ" value="3.3" /> <referenceRange> < observationRange> <text>1.8-7.8</text> </ observationRange> </referenceRange> </observation> </ component> <component> <observation moodCode="EVN" classCode="OBS"> <templateId root="2.16.840.1.579408.01.21.22.4.2" /> <id nullFlavor="NA" /> <code codeSystem="local" code="731-0" displayName= "Blood lymphocytes automated count (number/volume)" /> <statusCode code ="completed" /> <effectiveTime value="892155717680" /> <value unit="10*3" xsi:type="PQ" value="1.7" /> <referenceRange> < observationRange> <text>1.0-4.0</text> </ observationRange> </referenceRange> </observation> </ component> <component> <observation moodCode="EVN" classCode="OBS"> <templateId root="2.16.840.1.613684.01.21.22.4.2" /> <id nullFlavor="NA" /> <code codeSystem="local" code="742-7" displayName= "Blood monocytes automated count (number/volume)" /> <statusCode code= "completed" /> <effectiveTime value="674882989559" /> <value unit="10*3" xsi:type="PQ" value="0.6" /> <referenceRange> < observationRange> <text>0.0-1.0</text> </ observationRange> </referenceRange> </observation> </ component> <component> <observation moodCode="EVN" classCode="OBS"> <templateId root="2.16.840.1.891357.01.21.22.4.2" /> <id nullFlavor="NA" /> <code codeSystem="local" code="711-2" displayName= "Automated eosinophil count" /> <statusCode code="completed" /> <effectiveTime value="543337660571" /> <value unit="10*3/uL" xsi: type="PQ" value="0.1" /> <referenceRange> <observationRange > <text>0.0-0.3</text> </observationRange> </ referenceRange> </observation> </component> <component> <observation moodCode="EVN" classCode="OBS"> <templateId root= "2.16.840.1.452585.01.21.22.4.2" /> <id nullFlavor="NA" /> < code codeSystem="local" code="704-7" displayName="Automated blood basophil count (count/volume)" /> <statusCode code="completed" /> < effectiveTime value="740460528381" /> <value unit="10*3/uL" xsi:type= "PQ" value="0.0" /> <referenceRange> <observationRange> <text>0.0-0.1</text> </observationRange> </ referenceRange> </observation> </component> </organizer> </entry > <entry> <organizer moodCode="EVN" classCode="BATTERY"> <templateId root="216.840.1.169472.10..22.4.1" /> <id nullFlavor="NA" /> <code codeSystem="local" code="63523-6" displayName="PT panel in platelet poor plasma by coagulation assay" /> <statusCode code="completed" /> <component> <observation moodCode="EVN" classCode="OBS"> <templateId root= "2.16.840.1.499873.10...4.2" /> <id nullFlavor="NA" /> < code codeSystem="local" code="5902-2" displayName="Prothrombin time (PT) in platelet poor plasma by coagulation assay" /> <statusCode code= "completed" /> <effectiveTime value="252806817809" /> <value unit="s" xsi:type="PQ" value="14.5" /> <referenceRange> < observationRange> <text>12.2-14.7</text> </ observationRange> </referenceRange> </observation> </ component> <component> <observation moodCode="EVN" classCode="OBS"> <templateId root="216.840.1.127531.10..22.4.2" /> <id nullFlavor="NA" /> <code codeSystem="local" code="69404-0" displayName= "INR in platelet poor plasma or blood by coagulation assay" /> < statusCode code="completed" /> <effectiveTime value="465388276004" /> <value unit="" xsi:type="PQ" value="1.1" /> <referenceRange> <observationRange> <text>0.8-1.4</text> </ observationRange> </referenceRange> </observation> </ component> </organizer> </entry> <entry> <organizer moodCode="EVN" classCode="BATTERY"> <templateId root="216.840.1.885216.10..22.4.1" /> <id nullFlavor="NA" /> <code codeSystem="local" code="06267-2" displayName="Activated partial thromboplastin time (aPTT) in platelet poor plasma bycoagulation assay" /> <statusCode code="completed" /> < component> <observation moodCode="EVN" classCode="OBS"> < templateId root="05.20.840.1.247088.10...4.2" /> <id nullFlavor="NA " /> <code codeSystem="local" code="73746-5" displayName="Activated partial thromboplastin time (aPTT) in platelet poor plasma bycoagulation assay" /> <statusCode code="completed" /> <effectiveTime value= "476131149585" /> <value unit="s" xsi:type="PQ" value="28" /> <referenceRange> <observationRange> <text>24-35</text> </observationRange> </referenceRange> </observation> </component> </organizer> </entry> <entry> <organizer moodCode= "EVN" classCode="BATTERY"> <templateId root="16.840.1.157705.10..22.4.1 " /> <id nullFlavor="NA" /> <code codeSystem="local" code="78908-5" displayName="Comprehensive metabolic panel" /> <statusCode code="completed " /> <component> <observation moodCode="EVN" classCode="OBS"> <templateId root="216.840.1.869047.01.21.22.4.2" /> <id nullFlavor ="NA" /> <code codeSystem="local" code="2951-2" displayName="Serum or plasma sodium measurement (moles/volume)" /> <statusCode code= "completed" /> <effectiveTime value="474350177056" /> <value unit="mmol/L" xsi:type="PQ" value="141" /> <referenceRange> <observationRange> <text>135-145</text> </ observationRange> </referenceRange> </observation> </ component> <component> <observation moodCode="EVN" classCode="OBS"> <templateId root="2.16.840.1.137373.01.21.22.4.2" /> <id nullFlavor="NA" /> <code codeSystem="local" code="2823-3" displayName= "Serum or plasma potassium measurement (moles/volume)" /> <statusCode code="completed" /> <effectiveTime value="042753521371" /> < value unit="mmol/L" xsi:type="PQ" value="3.6" /> <referenceRange> <observationRange> <text>3.6-5.0</text> </ observationRange> </referenceRange> </observation> </ component> <component> <observation moodCode="EVN" classCode="OBS"> <templateId root="2.16.840.1.243768.01.21.22.4.2" /> <id nullFlavor="NA" /> <code codeSystem="local" code="2075-0" displayName= "Serum or plasma chloride measurement (moles/volume)" /> <statusCode code="completed" /> <effectiveTime value="195508946465" /> < value unit="mmol/L" xsi:type="PQ" value="106" /> <referenceRange> <observationRange> <text>98-107</text> </ observationRange> </referenceRange> </observation> </ component> <component> <observation moodCode="EVN" classCode="OBS"> <templateId root="2.16.840.1.145958.10..22.4.2" /> <id nullFlavor="NA" /> <code codeSystem="local" code="2027-12" displayName= "Carbon dioxide" /> <statusCode code="completed" /> < effectiveTime value="617499195945" /> <value unit="mmol/L" xsi:type="PQ " value="26" /> <referenceRange> <observationRange> <text>21-32</text> </observationRange> </ referenceRange> </observation> </component> <component> <observation moodCode="EVN" classCode="OBS"> <templateId root= "16.840.1.781418.10..4.2" /> <id nullFlavor="NA" /> < code codeSystem="local" code="43881-2" displayName="Serum or plasma anion gap determination (moles/volume)" /> <statusCode code="completed" /> <effectiveTime value="309876815564" /> <value unit="mmol/L" xsi: type="PQ" value="9" /> <referenceRange> <observationRange> <text>5-14</text> </observationRange> </ referenceRange> </observation> </component> <component> <observation moodCode="EVN" classCode="OBS"> <templateId root= "2.16.840.1.395288.10..22.4.2" /> <id nullFlavor="NA" /> < code codeSystem="local" code="3094-0" displayName="Serum or plasma urea nitrogen measurement (mass/volume)" /> <statusCode code="completed" /> <effectiveTime value="934855252255" /> <value unit="mg/dL" xsi:type="PQ" value="19" /> <interpretationCode codeSystem="local" code ="" /> <referenceRange> <observationRange> < text>7-18</text> </observationRange> </referenceRange> </observation> </component> <component> <observation moodCode="EVN" classCode="OBS"> <templateId root= "216.840.1.868107.10..22.4.2" /> <id nullFlavor="NA" /> < code codeSystem="local" code="2160-0" displayName="Serum or plasma creatinine measurement (mass/volume)" /> <statusCode code="completed" /> <effectiveTime value="746165619814" /> <value unit="mg/dL" xsi:type="PQ " value="0.70" /> <referenceRange> <observationRange> <text>0.60-1.30</text> </observationRange> </ referenceRange> </observation> </component> <component> <observation moodCode="EVN" classCode="OBS"> <templateId root= "216.840.1.871812.10..22.4.2" /> <id nullFlavor="NA" /> < code codeSystem="local" code="3097-3" displayName="Serum or plasma urea nitrogen /creatinine mass ratio" /> <statusCode code="completed" /> < effectiveTime value="836346279934" /> <value unit="" xsi:type="PQ" value="27" /> <referenceRange> <observationRange> <text>NRG</text> </observationRange> </referenceRange> </observation> </component> <component> <observation moodCode="EVN" classCode="OBS"> <templateId root= "216.840.1.623263...22.4.2" /> <id nullFlavor="NA" /> < code codeSystem="local" code="23325-2" displayName="Serum or plasma creatinine measurement with calculation of estimated glomerular filtration rate" /> <statusCode code="completed" /> <effectiveTime value="739684380645" /> <value unit="" xsi:type="PQ" value=">" /> < referenceRange> <observationRange> <text>NRG</text> </observationRange> </referenceRange> </observation> </component> <component> <observation moodCode="EVN" classCode= "OBS"> <templateId root="2.16.840.1.256793.01.21.22.4.2" /> < id nullFlavor="NA" /> <code codeSystem="local" code="2345-7" displayName="Serum or plasma glucose measurement (mass/volume)" /> < statusCode code="completed" /> <effectiveTime value="631727736449" /> <value unit="mg/dL" xsi:type="PQ" value="102" /> < referenceRange> <observationRange> <text>70-105</text> </observationRange> </referenceRange> </observation> </component> <component> <observation moodCode="EVN" classCode ="OBS"> <templateId root="216.840.1.600277...22.4.2" /> < id nullFlavor="NA" /> <code codeSystem="local" code="14979-2" displayName="Serum or plasma calcium measurement (mass/volume)" /> < statusCode code="completed" /> <effectiveTime value="981917647761" /> <value unit="mg/dL" xsi:type="PQ" value="9.4" /> < referenceRange> <observationRange> <text>8.5-10.1</text > </observationRange> </referenceRange> </observation > </component> <component> <observation moodCode="EVN" classCode="OBS"> <templateId root="2.16.840.1.435170.10.20.22.4.2" /> <id nullFlavor="NA" /> <code codeSystem="local" code="1974-05" displayName="Serum or plasma total bilirubin measurement (mass/volume)" /> <statusCode code="completed" /> <effectiveTime value="155341773078 " /> <value unit="mg/dL" xsi:type="PQ" value="0.6" /> < referenceRange> <observationRange> <text>0.1-1.0</text> </observationRange> </referenceRange> </observation > </component> <component> <observation moodCode="EVN" classCode="OBS"> <templateId root="05.20.840.1.607429.10..22.4.2" /> <id nullFlavor="NA" /> <code codeSystem="local" code="6768-6" displayName="Serum or plasma alkaline phosphatase measurement (enzymatic activity/volume)" /> <statusCode code="completed" /> < effectiveTime value="830229335752" /> <value unit="U/L" xsi:type="PQ" value="77" /> <referenceRange> <observationRange> <text>40-136</text> </observationRange> </referenceRange > </observation> </component> <component> <observation moodCode="EVN" classCode="OBS"> <templateId root= "216.840.1.617455.10.20.22.4.2" /> <id nullFlavor="NA" /> < code codeSystem="local" code="192" displayName="Serum or plasma aspartate aminotransferase measurement (enzymatic activity/volume)" /> < statusCode code="completed" /> <effectiveTime value="274110577897" /> <value unit="U/L" xsi:type="PQ" value="17" /> <referenceRange > <observationRange> <text>5-34</text> </ observationRange> </referenceRange> </observation> </ component> <component> <observation moodCode="EVN" classCode="OBS"> <templateId root="2.16.840.1.369459.10.20.22.4.2" /> <id nullFlavor="NA" /> <code codeSystem="local" code="1742-6" displayName= "Serum or plasma alanine aminotransferase measurement (enzymatic activity/volume )" /> <statusCode code="completed" /> <effectiveTime value= "[id number]" /> <value unit="U/L" xsi:type="PQ" value="16" /> <referenceRange> <observationRange> <text>0-55</text > </observationRange> </referenceRange> </observation > </component> <component> <observation moodCode="EVN" classCode="OBS"> <templateId root="2.16.840.1.996778.10.20.22.4.2" /> <id nullFlavor="NA" /> <code codeSystem="local" code="2885-2" displayName="Serum or plasma protein measurement (mass/volume)" /> < statusCode code="completed" /> <effectiveTime value="919681340465" /> <value unit="g/dL" xsi:type="PQ" value="7.2" /> < referenceRange> <observationRange> <text>6.4-8.2</text> </observationRange> </referenceRange> </observation > </component> <component> <observation moodCode="EVN" classCode="OBS"> <templateId root="2.16.840.1.750391.10.20.22.4.2" /> <id nullFlavor="NA" /> <code codeSystem="local" code="1751-7" displayName="Serum or plasma albumin measurement (mass/volume)" /> < statusCode code="completed" /> <effectiveTime value="681473004362" /> <value unit="g/dL" xsi:type="PQ" value="4.6" /> < interpretationCode codeSystem="local" code="" /> <referenceRange> <observationRange> <text>3.2-4.5</text> </ observationRange> </referenceRange> </observation> </ component> </organizer> </entry> <entry> <organizer moodCode="EVN" classCode="BATTERY"> <templateId root="2.16.840.1.920365.10.20.22.4.1" /> <id nullFlavor="NA" /> <code codeSystem="local" code="20931-0" displayName="Magnesium" /> <statusCode code="completed" /> <component > <observation moodCode="EVN" classCode="OBS"> <templateId root= "2.16.840.1.129098.10.20.22.4.2" /> <id nullFlavor="NA" /> < code codeSystem="local" code="" displayName="Magnesium" /> < statusCode code="completed" /> <effectiveTime value="925446025235" /> <value unit="mg/dL" xsi:type="PQ" value="2.1" /> < referenceRange> <observationRange> <text>1.8-2.4</text> </observationRange> </referenceRange> </observation > </component> </organizer> </entry> <entry> <organizer moodCode= "EVN" classCode="BATTERY"> <templateId root="16.840.1.359422.10..22.4.1 " /> <id nullFlavor="NA" /> <code codeSystem="local" code="73536-6" displayName="Serum or plasma troponin i.cardiac measurement (mass/volume)" /> <statusCode code="completed" /> <component> <observation moodCode="EVN" classCode="OBS"> <templateId root= "05.20.840.1.997562.10..4.2" /> <id nullFlavor="NA" /> < code codeSystem="local" code="92779-5" displayName="Serum or plasma troponin i.cardiac measurement (mass/volume)" /> <statusCode code="completed" / > <effectiveTime value="066580709144" /> <value unit="ng/mL" xsi:type="PQ" value="<" /> <referenceRange> < observationRange> <text><0.30</text> </ observationRange> </referenceRange> </observation> </ component> </organizer> </entry> <entry> <organizer moodCode="EVN" classCode="BATTERY"> <templateId root="05.20.840.1.557673.10...4.1" /> <id nullFlavor="NA" /> <code codeSystem="local" code="2639-3" displayName="Myoglobin, serum" /> <statusCode code="completed" /> < component> <observation moodCode="EVN" classCode="OBS"> < templateId root="216.840.1.115718.10..22.4.2" /> <id nullFlavor="NA " /> <code codeSystem="local" code="2639-3" displayName="Myoglobin, serum" /> <statusCode code="completed" /> <effectiveTime value ="190542593738" /> <value unit="ng/mL" xsi:type="PQ" value="22.7" /> <referenceRange> <observationRange> <text>10.0- 92.0</text> </observationRange> </referenceRange> </ observation> </component> </organizer> </entry></section> Encounters ACCT No. Visit Date/Time Discharge Status Pt. Type Provider Facility Loc./Unit Complaint [id number] 05/18/2012 18:39:00 05/18/2012 20:31:00 DIS Emergency Lizzie CARRERO, Harlan Mijares [facility] on [facility] TERM [id number] 06/07/2016 08:36:00 Document Registration [id number] 07/07/2017 13:12:00 Document Registration [id number] 01/22/2015 12:43:43 Document Registration [id number] 01/22/2015 12:28:35 Document Registration [id number] 01/22/2015 11:47:31 Document Registration [id number] 01/22/2015 10:03:10 Document Registration [id number] 07/12/2014 23:59:00 Document Registration [id number] 03/04/2014 10:27:00 Document Registration [id number] 10/18/2017 20:51:29 10/18/2017 20:51:31 DIS Outpatient [id number] 01/23/2015 05:56:40 Document Registration [id number] 10/27/2014 06:00:30 Document Registration [id number] 10/27/2014 06:00:29 Document Registration [id number] 10/27/2014 06:00:28 Document Registration [id number] 10/27/2014 06:00:27 Document Registration [id number] 10/27/2014 06:00:26 Document Registration [id number] 10/27/2014 06:00:25 Document Registration [id number] 10/27/2014 06:00:23 Document Registration [id number] 10/03/2017 08:42:00 10/03/2017 23:59:59 CLS Outpatient [id number] 01/14/2015 06:05:00 01/14/2015 16:35:00 DIS Outpatient Alec CARRERO, Josh Looney [facility] [id number] 09/01/2013 17:40:00 09/01/2013 19:07:00 DIS Emergency Nabil CARRERO, [place] [facility] 01/14/2015 06:51:57 ACT Document Registration [id number] 10/02/2017 15:00:00 10/02/2017 23:59:00 DIS Outpatient Meng Jace [facility] on [facility] UA [id number] 01/22/2015 11:47:31 Document Registration [id number] 11/01/2014 13:14:00 Document Registration [id number] 10/19/2017 21:15:00 ACT Inpatient EVONNE CARRERO, MARBIN Sims [facility] 4TH AFLUTTER WITH RVR;NEW ONSET P AFIB [id number] 06/06/2016 16:35:00 Document Registration [id number] 03/23/2016 16:36:00 Document Registration [id number] 07/04/2017 00:00:00 DIS Document Registration [id number] 07/05/2017 09:19:00 Document Registration
[2017-10-19 21:50] VITALS: BP 170/86
[2017-10-19] MEDS ORDERED: ACETAMINOPHEN 500 MG TAB (TYLENOL) PO PRN (23:00)
[2017-10-19 23:54] VITALS: BP 184/80
[2017-10-20 04:10] VITALS: BP 177/81
[2017-10-20 05:51] LABS: BASOPHILS % (AUTO) 0 % (0-10); EOSINOPHILS # (AUTO) 0.1 10^3/uL (0.0-0.3); EOSINOPHILS % (AUTO) 2 % (0-10); HEMATOCRIT 41 % (35-52); HEMOGLOBIN 13.7 G/DL (11.5-16.0); LYMPHOCYTES # (AUTO) 1.5 X 10^3 (1.0-4.0); LYMPHOCYTES % (AUTO) 33 % (12-44); MEAN CORPUSCULAR HEMOGLOBIN 31 PG (25-34); MEAN CORPUSCULAR HGB CONC 33 G/DL (32-36); MEAN CORPUSCULAR VOLUME 94 FL (80-99); MEAN PLATELET VOLUME 8.9 FL (7.4-10.4); MONOCYTES # (AUTO) 0.5 X 10^3 (0.0-1.0); MONOCYTES % (AUTO) 12 % (0-12); NEUTROPHILS # (AUTO) 2.5 X 10^3 (1.8-7.8); NEUTROPHILS % (AUTO) 53 % (42-75); PLATELET COUNT 222 10^3/uL (130-400); RED BLOOD COUNT 4.38 10^6/uL (4.35-5.85); RED CELL DISTRIBUTION WIDTH 13.3 % (10.0-14.5); WHITE BLOOD COUNT 4.6 10^3/uL (4.3-11.0)
[2017-10-20 06:23] LABS: BUN/CREATININE RATIO 23; CALCIUM 9.1 MG/DL (8.5-10.1); CARBON DIOXIDE 23 MMOL/L (21-32); CHLORIDE 111 MMOL/L (98-107); CHOLESTEROL 192 MG/DL (< 200); CREATININE SERUM 0.65 MG/DL (0.60-1.30); GFR ESTIMATED > 60; GLUCOSE 87 MG/DL (70-105); HDL CHOLESTEROL 54 MG/DL (40-60); MAGNESIUM 2.1 MG/DL (1.8-2.4); POTASSIUM 3.7 MMOL/L (3.6-5.0); SODIUM 143 MMOL/L (135-145); TRIGLYCERIDES 54 MG/DL (<150); VLDL CHOLESTEROL 11 MG/DL (5-40)
[2017-10-20 08:00] VITALS: BP 172/72
[2017-10-20] MEDS ORDERED: AMLO5TAB2 PO ×2 (08:36→08:45)
--- NOTE | 2017-10-20 08:42 | History & Physical-Hospitalist ---
History of Present Illness HPI/Chief Complaint Is a 67-year-old white female visiting the [facility]. She is here from [place]. She began having chest discomfort and palpitations and racing heart with in her left chest. She had taken an extra metoprolol without improvement in her symptoms. She then called EMS and was transported to the emergency room where she was found to be in A. fib with RVR. She spontaneously converted and has been in sinus rhythm overnight. She remains hypertensive throughout this hospitalization. Dr. Avalos recommended being started on Eliquist, and she is due to receive her second dose this morning. She notes that she's had irregular heart rate off and on in the past but last night was very different. About 2 or 3 years ago she presented the emergency room with somewhat similar symptoms and was told that they found the problem but she doesn't think it was atrial fibrillation. She has had Holter monitors in the past without definite diagnosis. She has had 2-3 heart catheter and has been diagnosed with Prinzmetal angina as well in the past. A somewhat complicated factor is that she said when she was in her early 20s she had had a stroke and it sounds like secondary to occlusion of the right carotid artery. She said that she had developed a great deal of collateral involving 3 vessels in the right side of the head and always hears her heartbeat in that area. This may well be an AV malformation, which may alter the wisdom of long-term anticoagulation. At the time my interview this morning she is very personable animated and feeling well. She does relate an episode about a week ago where she was walking and found herself on the ground on her back and has no recollection of how she got there. She is resistant to the idea that she passed out Source: patient Exam Limitations: no limitations Date Seen 10/20/17 Time Seen by Provider: 08:15 Attending Physician Patricia Douglass MD PCP No,Local Physician Referring Physician Date of Admission Oct 19, 2017 at 21:15 Home Medications & Allergies Home Medications Reviewed patient Home Medication Reconciliation performed by pharmacy medication reconciliations central sterile technician and/or nursing. Patients Allergies have been reviewed. Allergies Allergies Coded Allergies lisinopril (Verified Allergy, Unknown, 10/19/17) azithromycin (Verified Adverse Reaction, Unknown, 10/19/17) Uncoded Allergies CONTRAST ( Allergy, Unknown, 10/19/17) Past Nsbderx-Qdccfd-Beolhz Hx Past Med/Social Hx: Reviewed Nursing Past Med/Soc Hx Patient Social History Marrital Status: Employed/Student: retired (Property management) Alcohol Use: Occasionally Uses Number of Drinks Today: 0 Alcohol Beverage of Choice: Wine Recreational Drug Use: No Smoking Status: Former Smoker Former Smoker, Quit: Oct 16, 1992 Type Used: Cigarettes Physical Abuse Screen: No Sexual Abuse: No Recent Foreign Travel: No Contact w/other who traveled: No Recent Hopitalizations: No Recent Infectious Disease Expo: No Seasonal Allergies Seasonal Allergies: No Past Medical History Surgeries: Abdominal (Inguinal hernia), Hysterectomy, Oophorectomy Cardiac: Hypertension, Irregular Heartbeat, Palpitations, Syncope Neurological: Stroke HEENT: Tinnitis (The right side of her head) History of Blood Disorders: No Family History Heart Disease, CAD Under 55 Years Old, Hypertension (2 brothers), Stroke ( Brother) Review of Systems Constitutional: see HPI Physical Exam Physical Exam Vital Signs Vital Signs - First Documented 10/19/17 19:36 Temp 97.2 Pulse 133 Resp 16 B/P (MAP) 207/132 (157) Pulse Ox 99 O2 Delivery Room Air Capillary Refill : Less Than 3 Seconds Height, Weight, BMI Height: 5'5.00" Weight: 145lbs. oz. 65.469811hk; BMI Method:Stated General Appearance: No Apparent Distress, WD/WN Eyes: Bilateral Eye Normal Inspection HEENT: PERRL/EOMI, TMs Normal, Normal ENT Inspection, Pharynx Normal Neck: Full Range of Motion, Normal Inspection, Non Tender, Supple Respiratory: Chest Non Tender, Lungs Clear, Normal Breath Sounds, No Accessory Muscle Use, No Respiratory Distress Cardiovascular: Regular Rate, Rhythm, No Edema, No Gallop, No JVD, No Murmur, Normal Peripheral Pulses Gastrointestinal: Normal Bowel Sounds, No Organomegaly, No Pulsatile Mass, Non Tender, Soft Rectal: Deferred Back: Normal Inspection, No CVA Tenderness, No Vertebral Tenderness Extremity: Normal Capillary Refill, Normal Inspection, Normal Range of Motion, Non Tender, No Calf Tenderness, No Pedal Edema Neurologic/Psychiatric: Alert, Oriented x3, No Motor/Sensory Deficits, Normal Mood/Affect, scrum product owner II-XII Norm as Tested Skin: Normal Color, Warm/Dry Lymphatic: No Adenopathy Results Results/Procedures Labs Laboratory Tests 10/19/17 19:37 10/20/17 05:34 Patient resulted labs reviewed. Assessment/Plan Admission Diagnosis Atrial fibrillation with RVR resolved Hypertension poor control-negative workup in the past for secondary causes History of previous stroke with probable development of collateral circulation Episode of syncope a week ago Dr. Barros has ordered an echocardiogram and has started her on anticoagulation. Consideration should be given probably to a loop recorder but could be done by her physicians in [place]. Admission Status: Observation Clinical Quality Measures AMI/AHF: ASA po Prior to arrival: No DVT/VTE Risk/Contraindication: Risk Factor Score Per Nursin RFS Level Per Nursing on Admit: 2=Moderate PATRICIA DOUGLASS MD Oct 20, 2017 08:42
[2017-10-20] MEDS ORDERED: POTA99TA21 PO (08:45)
[2017-10-20] MEDS ORDERED: METO50TA15 PO (08:45)
[2017-10-20] MEDS ORDERED: ASPI-983 PO (08:45)
[2017-10-20] MEDS ORDERED: ASPIRIN 81 MG CHEW (CHILDREN'S ASA) PO SCH (09:00)
[2017-10-20] MEDS ORDERED: meTOprolol TARTRATE 50 MG (LOPRESSOR) TAB PO SCH (09:00)
[2017-10-20] MEDS ORDERED: APIXABAN 5 MG (ELIQUIS) TABLET PO SCH (09:00)
--- NOTE | 2017-10-20 10:31 | Consultation-Cardiology ---
HPI-Cardiology Cardiology Consultation: Date of Consultation 10/20/17 Time Seen by Provider: 10:25 Date of Admission 10-19-17 Attending Physician Patricia Roy MD Admitting Physician Fabiola,Local Physician Consulting Physician ENRICO GEORGE HPI: Chief Complaint: PAF with RVR Primary Yard Driver: Dr. Michael in [place], [place] Ms. Zhao is a 67 year old female who has been admitted to [facility] from the ED d/ t a-fib with RVR. She is from [place], [place], but is currently visiting this area. Her primary swim coach is Dr. Michael in [place], [place]. [place] when she began to have palpitations. She reports she took a dose of metoprolol, but the symptoms persisted. She did feel SOB. She came to the ED and converted to SR. She reports a h/o palpitations. No c/o CP, syncope or near syncope. She reports intermittent bilat LE edema which is least in the morning and worse at the end of the day for which she take PRN diuretics. She reports she is feeling well this morning and wishes to go home today. Review of Systems-Cardiology Review of Systems Constitutional: No chills, No fever Eyes: No vision change Ears/Nose/Throat: No recent hearing loss Respiratory: As described under HPI Cardiovascular: As described under HPI Gastrointestinal: No nausea Genitourinary: no symptoms reported Musculoskeletal: no symptoms reported Skin: no symptoms reported Psychiatric/Neurological: No syncope Hematologic: No bleeding abnormalities JWL-Vsbhzi-Ftnotv Hx Patient Social History Marrital Status: Employed/Student: retired (Property management) Alcohol Use: Occasionally Uses Recreational Drug Use: No Smoking Status: Former Smoker Type Used: Cigarettes Recent Foreign Travel: No Recent Infectious Disease Expo: No Hospitalization with Isolation: Denies Physical Abuse Screen: No Sexual Abuse: No Past Medical History PMH As described under Assessment. Allergies and Home Medications Allergies Coded Allergies: lisinopril (Verified Allergy, Unknown, 10/19/17) azithromycin (Verified Adverse Reaction, Unknown, 10/19/17) Uncoded Allergies: CONTRAST (Allergy, Unknown, 10/19/17) Home Medications Amlodipine Besylate 5 Mg Tablet, 5 MG PO DAILY, (Reported) Apixaban 5 Mg Tablet, 5 MG PO BID Prescribed by: ENRICO PULIDO on 10/20/17 1048 Aspirin 81 Mg Tablet.dr, 81 MG PO DAILY, (Reported) Metoprolol Tartrate 50 Mg Tablet, 50 MG PO BID, (Reported) Potassium Gluconate 99 Mg Tablet, 99 MG PO DAILY, (Reported) Patient Home Medication List Home Medication List Reviewed: Yes Physical Exam-Cardiology Physical Exam Vital Signs/I&O Capillary Refill : Less Than 3 Seconds Constitutional: AAO x 3, well-developed, well-nourished HEENT: hearing is well preserved, oral hygience is good Neck: No carotid bruit; carotid pulses are 2 + bilaterally Respiratory: No accessory muscle use, No respiratory distress; chest expansion is symmetric, chest is bilaterally symmetric, lungs clear to auscultation Cardiovascular: regular rate-rhythm; No JVD; S1 and S2 Gastrointestinal: audible bowel sounds Extremities: no lower extremity edema bilateral Neurologic/Psychiatric: grossly intact Skin: No rash Data Review Labs Radiology NAME: MARIBELL COBIAN [facility] REC#: [id number] PT STATUS: ADM [place] : 1950 PHYSICIAN: TRACIE SALAMANCA MD ADMIT DATE: 10/19/17 Signed Date of Exam: 10/19/17 CHEST 1 VIEW, AP/PA ONLY Clinical indication: Patient with high blood pressure and A-fib. Exam: Portable chest x-ray upright view. Comparisons: Chest x-ray dated 05/18/2012. Findings: Lungs/pleura: Lungs are clear. There is no pneumothorax. There is no pleural effusion. Mediastinum: Unremarkable. Pulmonary vasculature: Unremarkable. Heart: Unremarkable. Bones/extrathoracic soft tissue: Unremarkable. Impression: There is no radiographic evidence of acute cardiopulmonary process. Dictated by: Dictated on workstation # [id number] Dict: 10/19/172045 Trans: 10/19/172216 Interpreted by: ALEXANDRA GALO MD Electronically signed by: ALEXANDRA GALO MD 10/19/172216 ECG Impression ECG Initial ECG Rhythm: Normal Sinus A/P-Cardiology Assessment/Admission Diagnosis PAF with RVR - currently SR - SB H/O palpitations H/O suspected CVA in her 20's for which her carotids are being followed by her primary swim coach HTN Discussion and Recomendations PAF with RVR - currently SR - SB HTN - not well controlled - increase amlodipine Echo - pending Continue BB - d/t SB we are unable to augment her current dose Start OAC with Eliquis for stroke prophylaxis She wishes to go home today and follow up with her primary swim coach in [place] We would like to thank medical services for this consult Clinical Quality Measures AMI/AHF: ASA po Prior to arrival: No DVT/VTE Risk/Contraindication: Risk Factor Score Per Nursin RFS Level Per Nursing on Admit: 2=Moderate ENRICO PULIDO Oct 20, 2017 10:30
[2017-10-20] MEDS ORDERED: APIX5TAB PO (10:48)
[2017-10-20] MEDS ORDERED: amLODIPine 10 MG (NORVASC) TAB PO NR (11:00)
[2017-10-20 12:00] VITALS: BP 193/78
[2017-10-20 12:25] VITALS: BP 193/78
--- NOTE | 2017-10-20 20:42 | Consultation-Cardiology ---
HPI-Cardiology Cardiology Consultation: Date of Consultation 10/20/17 Time Seen by Provider: 10:15 Date of Admission 10/19/17 Attending Physician Patricia Roy MD Admitting Physician No,Local Physician Consulting Physician NATALY VALENTINE MD, MA, FACP, FACC, FSCAI, CCDS HPI: Chief Complaint: Reason for consultation: PAF with RVR HPI: Ms. Zhao is a 67 year old female who has been admitted to [facility] from the ED d/ t a-fib with RVR. She is from [place], [place], but is currently visiting this area. Her primary joy loading machine operator is Dr. Michael in [place], [place]. She was at the [place] last night when she began to have palpitations. She reports she took a dose of metoprolol, but the symptoms persisted. She did feel SOB. She came to the ED and converted to SR. She reports a h/o palpitations. No c/o CP, syncope or near syncope. She reports intermittent bilat LE edema which is least in the morning and worse at the end of the day for which she take PRN diuretics. She reports she is feeling well this morning and wishes to go home today. 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 Allergies and Home Medications Allergies Coded Allergies: lisinopril (Verified Allergy, Unknown, 10/19/17) azithromycin (Verified Adverse Reaction, Unknown, 10/19/17) Uncoded Allergies: CONTRAST (Allergy, Unknown, 10/19/17) Home Medications Amlodipine Besylate 5 Mg Tablet, 5 MG PO DAILY, (Reported) Apixaban 5 Mg Tablet, 5 MG PO BID Prescribed by: ENRICO PULIDO on 10/20/17 1048 Aspirin 81 Mg Tablet.dr, 81 MG PO DAILY, (Reported) Metoprolol Tartrate 50 Mg Tablet, 50 MG PO BID, (Reported) Potassium Gluconate 99 Mg Tablet, 99 MG PO DAILY, (Reported) Patient Home Medication List Home Medication List Reviewed: Yes Physical Exam-Cardiology Physical Exam Vital Signs/I&O 10/20/17 10/20/17 10/20/17 09:40 12:00 12:25 Temp 96.9 98.1 Pulse 50 50 Resp 20 20 B/P (MAP) 193/78 (116) 193/78 Pulse Ox 96 96 O2 Delivery Room Air Room Air Capillary Refill : Less Than 3 Seconds Constitutional: AAO x 3, well-developed, well-nourished HEENT: hearing is well preserved, oral hygience is good Neck: No carotid bruit; carotid pulses are 2 + bilaterally Respiratory: No accessory muscle use, No respiratory distress; chest expansion is symmetric, chest is bilaterally symmetric, lungs clear to auscultation Cardiovascular: regular rate-rhythm; No JVD; S1 and S2 Gastrointestinal: audible bowel sounds Extremities: no lower extremity edema bilateral Neurologic/Psychiatric: grossly intact Skin: No rash Data Review Labs Laboratory Tests 10/20/17 05:34: White Blood Count 4.6, Red Blood Count 4.38, Hemoglobin 13.7, Hematocrit 41, Mean Corpuscular Volume 94, Mean Corpuscular Hemoglobin 31, Mean Corpuscular Hemoglobin Concent 33, Red Cell Distribution Width 13.3, Platelet Count 222, Mean Platelet Volume 8.9, Neutrophils (%) (Auto) 53, Lymphocytes (%) (Auto) 33, Monocytes (%) (Auto) 12, Eosinophils (%) (Auto) 2, Basophils (%) (Auto) 0, Neutrophils # (Auto) 2.5, Lymphocytes # (Auto) 1.5, Monocytes # (Auto) 0.5, Eosinophils # (Auto) 0.1, Basophils # (Auto) 0.0, Sodium Level 143, Potassium Level 3.7, Chloride Level 111H, Carbon Dioxide Level 23, Anion Gap 9, Blood Urea Nitrogen 15, Creatinine 0.65, Estimat Glomerular Filtration Rate > 60, BUN/ Creatinine Ratio 23, Glucose Level 87, Calcium Level 9.1, Magnesium Level 2.1, Troponin I < 0.30, Triglycerides Level 54, Cholesterol Level 192, LDL Cholesterol Direct 129, VLDL Cholesterol 11, HDL Cholesterol 54, Thyroid Stimulating Hormone (TSH) 2.39 Laboratory Tests 10/19/17 19:37 10/20/17 05:34 A/P-Cardiology Assessment/Admission Diagnosis PAF with RVR - currently NSR (sinus dell, asymptomatic) Echo of 10/20/17: LVEF 60-65%, moderate mitral regurg, PASP 35-40 mmHg H/o suspected CVA in her 20's for which her carotids are being followed by her primary joy loading machine operator HTN Discussion and Recomendations Continue beta-steffen and amlodipine Start OAC with Eliquis for stroke prophylaxis We discussed her echo results with her, informed her of her moderate mitral regurg and mild pulmonary hypertension, and have advised f/u as outpt She wishes to go home today and states will f/u with her primary joy loading machine operator in [place] [facility] Clinical Quality Measures AMI/AHF: ASA po Prior to arrival: No DVT/VTE Risk/Contraindication: Risk Factor Score Per Nursin RFS Level Per Nursing on Admit: 2=Moderate NATALY VALENTINE MD FACP FAC CCDS Oct 20, 2017 20:42
== END 2017-10-20 11:59 | disposition home or self-care (01) ==
LOC: ER 19:37 → UNDOADMOB 21:15 → 4TH 21:15 → UNDODISOB 10-20 12:25
PROVIDERS: ADMIT Internal Medicine; ATTEND Internal Medicine
DX: I48.0 Paroxysmal atrial fibrillation (principal); I10 Essential (primary) hypertension; I27.20 Pulmonary hypertension, unspecified; I34.0 Nonrheumatic mitral (valve) insufficiency; Z87.891 Personal history of nicotine dependence
CPT/HCPCS: 36415; 71045; 80048; 80053; 80061; 83735; 83874; 84443; 84484; 85025; 85610; 85730; 93005; 93041; 93306; G0378